=== PATIENT | male | born 1975 | race Caucasian/White ===

== ENCOUNTER → 2023-02-16 | Outpatient (CLI) | payer OTHER, SELFPAY ==
[2023-02-16 12:38] LABS: Absolute Lymphocyte Count 1.31 X10^3/uL (0.83-4.51); Absolute Neutrophil Count 1.2 X10^3/uL (2.0-7.7); Basophil# 0.03 X10^3/uL; Basophil% 0.9 % (0-1); Eosinophil# 0.25 X10^3/uL; Eosinophils% 7.9 % (0-5); Hematocrit 42.7 % (40-54); Hemoglobin 13.8 g/dL (13.0-16.5); Lymphocyte # 1.31 X10^3/ul (0.83-4.51); Lymphocyte % 41.3 % (19-41); Mean Corp Hgb Conc 32.3 g/dL (32-36); Mean Corpuscular Hgb 30.2 pg (27.0-32.0); Mean Corpuscular Volume 93.4 fL (80-94); Monocyte# 0.37 X10^3/uL; Monocyte% 11.7 % (0-10); NRBC Flagged by Analyzer 0 % (0-5); Neutrophil # 1.21 X10^3/uL (2.7-7.7); Neutrophil % 38.2 % (47-70); Platelet Count 212 K/mm3 (150-450); RBC Distribution Width CV 13.4 % (11.6-14.6); RBC Distribution Width SD 46.2 fl (35.1-43.9); Red Blood Count 4.57 M/mm3 (4.6-6.2); White Blood Count 3.2 K/mm3 (4.4-11.0)
[2023-02-16 13:01] LABS: AST(SGOT) 35 U/L (15-37); Alanine Aminotransfer ALT/SGPT 28 U/L (16-61); Albumin, Serum 3.9 g/dL (3.2-5.0); Alkaline Phosphatase 57 U/L (45-117); Anion Gap 5 (5-15); BUN 16 mg/dL (7-18); BUN/Creat Ratio 19.4 RATIO (10-20); Calcium,Total 9.4 mg/dL (8.5-10.1); Chloride 105 mmol/L (98-107); Cholesterol 179 mg/dL (200); Creatinine, Serum 0.82 mg/dL (0.70-1.30); EST Glomerular Filtration Rate 107 mL/min (>60); Est Glom Filt Rate - Afr Amer 130 mL/min (>60); Globulin 3.9 g/dL (2.2-4.2); Glucose 104 mg/dL (74-106); High Density Lipoprotein 63 mg/dL; Potassium 4.1 mmol/L (3.5-5.1); Protein, Total 7.8 g/dL (6.4-8.2); Sodium Level 139 mmol/L (136-145); Thyroid Stim Hormone (TSH) 2.56 uIU/mL (0.358-3.74); Triglycerides 40 mg/dL; Very Low Density Lipoprotein 8 mg/dL (5-40)
== END | disposition home or self-care (01) ==
LOC: MTLAB 11:04
PROVIDERS: PCP Family Medicine; Referring Provider Family Medicine; Visit Provider Family Medicine
DX: Z00.00 Encounter for general adult medical examination without abnormal findings (principal)
CPT/HCPCS: 36415; 80053; 80061; 84443; 85025

== ENCOUNTER → 2023-10-10 | Outpatient (CLI) | payer OTHER, SELFPAY ==
--- NOTE | 2023-10-10 11:40 | NASAL_PTH ---
PATIENT: TRINI RUBIO LOC: [facility] U#:[id number] AGE/SX: 47/M ROOM: RE10/10/[address]: Dr. Lg Mckeon MD : 1975 BED: DIS: 10/10/2023 SPEC #: [id number] RECD: 10/10/23 15:02 STATUS: SARA MOSES #: [id number] EDSON: 10/10/23 11:[address]: Lg Mckeon DEPT: SURGICAL PATHOLOGY RECD BY: Ellyn Dupree ENTERED: 10/11/23 11:53 SP TYPE: NASAL SPEC OTHR DR: Dr. Luis Enrique Castro MD Tissues: A - Ethmoid sinus, NOS B - Ethmoid sinus, NOS Procedures: Decalcification bone/plaque Surgery Specimen Level IV HEADER OPERATION: Open septo rhinoplasty, functional endoscopic sinus surgery PRE-OP DIAGNOSIS: Allergic rhinitis due to animal (cat, dog) hair and dander, allergic rhinitis due to pollen, other chronic sinusitis, other allergic rhinitis TISSUE SUBMITTED: A- Left sinus contents, B- Right sinus contents MICROSCOPIC DIAGNOSIS A. Left sinus contents, curettings: Chronic sinusitis. Fragments of bone with no pathologic change. B. Right sinus contents, curettings: Chronic sinusitis. Fragments of bone with no pathologic change. / 10/17/2023 MICROSCOPIC DESCRIPTION Slides are reviewed. GROSS DESCRIPTION A. Received in fixative is one container labeled with the patient's name and designated Left sinus contents. The specimen consists of multiple fragments of spears soft tissue mixed with fragments of bone that in aggregate measure 2.0 x 1.5 x 0.2 cm. The specimen is totally submitted in one cassette after decalcification. B. Received in fixative is one container labeled with the patient's name and designated Right sinus contents. The specimen consists of multiple fragments of spears soft tissue mixed with fragments of bone that in aggregate measure 3.0 x 2.5 x 0.3cm. The specimen is totally submitted in one cassette after decalcification. 10/11/2023 TC:3 CPT:77419b7,14780g4
== END | disposition home or self-care (01) ==
LOC: LABSPEC 15:14
PROVIDERS: PCP Family Medicine; Referring Provider Otolaryngology; Visit Provider Otolaryngology
DX: J30.81 Allergic rhinitis due to animal (cat) (dog) hair and dander (principal); J30.1 Allergic rhinitis due to pollen; J32.8 Other chronic sinusitis; J30.89 Other allergic rhinitis
CPT/HCPCS: 88305; 88311

== ENCOUNTER → 2023-11-10 | Day surgery (SDC) | payer OTHER, SELFPAY ==
[2023-11-10 09:40] VITALS: BP 118/70; PULSE 101; RESP 16; TEMP 36.7; O2SAT 100
[2023-11-10] MEDS: Lidocaine Jelly 2% 20 ML Syringe (URO-JET) 1 APPLIC (09:45)
== END | disposition home or self-care (01) ==
PROVIDERS: PCP Family Medicine; Referring Provider Family Medicine; Visit Provider Internal Medicine Gastroenterology
PROC: F00ZJWZ Instrumental Swallowing and Oral Function Assessment using Swallowing Equipment (ICD-10-PCS; CPT 43235; principal; 2023-11-10 09:10)
DX: R13.10 Dysphagia, unspecified (principal)
CPT/HCPCS: 91010; 91013

== ENCOUNTER 2023-11-30 06:28 | Day surgery (SDC) | payer OTHER, SELFPAY ==
[2023-11-30] VITALS (8 sets, daily range): BP systolic 107–116; BP diastolic 63–76; PULSE 48–57; RESP 14–17; TEMP 36.4; O2SAT 95–100; BMI 23.1
--- NOTE | 2023-11-30 06:41 | HP.PCM_ITS ---
History and Physical Date of Admission: 11/30/23 TRINI RUBIO, is a 48 M who presents to the office today for establishment with [facility] with concerns for silent acid reflux. He reports frequently needing to clear his throat of what feels like phlegm, but there's nothing to cough up, and it's caused a raspy voice change. He reports waking up with gastric contents in his mouth, also reports belching stomach contents in to his mouth a couple of times a week, heartburn after large meals late at night. States that he has stopped eating so close to bedtime and reduced the number of sparkling mccann ingested which have significantly reduced most symptoms except for the voice changes. He reports that supper is his largest meal because he has time to sit down and eat, he has small snacks throughout the day while working. Reports that he has on a few occasions vomited while working out if he had eaten right before; admits he tries to avoid eating before workouts now. He denies difficulty chewing and swallowing,nausea, early satiety, excessive belching, bloating, abdominal pain, pain associated with BM, blood in stool or toilet margo tinoco Reports daily complete BMs without straining. He denies fever, chills. ROS Const Constitutional: No anorexia, fatigue, fever(s), weight change or abnormal sleep pattern Eyes Eyes: No change in vision ENT ENT: Positive for post nasal drip; No abnormal hearing or difficulty swallowing Resp Respiratory: Positive for cough and excessive phlegm production Cardio Cardiology: No chest pain at rest or chest pain with exertion Gastro GI: Positive for heartburn and vomiting; No abdominal pain, belching, bloating, change in bowel habits, change in stool character, coffee ground emesis, constipation, cramping, diarrhea, difficulty sw allowing, feeling full early, excessive flatus, incontinent of stools, Vomiting blood/hematemesis, Blood in stool, loose stools, Black,tarry stools, nausea/dyspepsia, pain with swallowing or other Genitourinary Male: No difficulty urinating Musc Musculoskeletal: No joint pain Skin Skin: No yellowing of the eye or itchy eyes Neuro Neurology: No abnormal hearing Psych Psychiatric: No abnormal sleep pattern, No anxiety and No depression Endo Endocrine: No cold intolerance, fatigue, heat intolerance or weight change Aller/Imm Allergy/Immunologic: No itchy eyes Daren/Lymp Hematologic/Lymphatic: No easy bleeding or easy bruising Exam Const General: cooperative, healthy appearing, comfortable and no acute distress Nutritional Appearance: average body habitus and well nourished Orientation: alert HENPR Head: normal to inspection Ears: hearing grossly normal bilaterally Nose: external nose normal Face and sinus: normal facial exam and face symmetric Eyes General: appearance normal, both eyes and all related structures Sclera: sclerae normal Neck Neck: normal visual inspection and full ROM Neck mass: No Chest Chest palpation & inspection: normal inspection of the chest Resp Effort & Inspection: normal respiratory effort, able to speak in complete sentences and symmetric chest movement GI Inspection: normal to inspection Skin General: no rashes or lesions noted Neuro General: patient alert, patient awake and patient oriented x3 Cranial Nerves: CN's II-XI intact bilaterally Cognition: normal cognition Speech: speech normal Gait: normal gait Motor: muscle tone normal throughout Extrem General: normal to inspection and full ROM Psych Appearance: well kempt Assessment and Plan Assessment and Plan (1) Acid reflux: Status: Acute Qualifiers: Esophagitis presence: esophagitis presence not specified Qualified Code(s): K21.9 - Gastro-esophageal reflux disease without esophagitis Plan: TRINI RUBIO, is a 48 M who presents to the office today for establishment with [facility] with concerns for silent acid reflux. He reports frequently needing to clear his throat of what feels like phlegm, but there's nothing to cough up, and it's caused a raspy voice change. He reports waking up with gastric contents in his mouth, also reports belching stomach contents in to his mouth a couple of times a week, heartburn after large meals late at night. Differential diagnoses include: laryngopharyngeal reflux, post-nasal drip, esophageal dysmotility, gastroparesis, gastric outlet obstruction, NERD vs GERD. * EGD with Roper study capsule to measure pH changes * GET to evaluate for delayed gastric emptying * esophageal manometry to assess esophageal dysmotility * consider PPI therapy with testing results * modify last meal to end at least 3hrs prior to bedtime, reduce carbonation * sleep with head elevated * call with results Orders: Orders Gastric Emptying Study Today K21.9 - Gastro-esophageal reflux disease without esophagitis I have examined the patient and the H&P has been reviewed. There are no clinical changes since date of exam.
--- NOTE | 2023-11-30 07:23 | PRE.ANES_ITS ---
ASA Classification* ASA Classification ASA Classification: 2 Assessment & Plan Anesthesia* Anesthesia Assessment Anesthesia Assessment: Discussed sedation and/or anesthesia options, risks, benefits, and alternatives with patient/parents/legal guardian/POA. Questions invited. The patient/parents/legal guardian/POA seems to understand and agrees to proceed with anesthesia plan. Reviewed the physical assessment, medical history, allergy history and patient home medications list prior to surgery/procedure/anesthetic and documented any changes. Performed airway and anesthesia risk assessments. Anesthesia Type Anesthesia Type: MAC (see written pre anesthesia record for full assessment) Anesthesia Focused Assessment* Temperature: 97.6 F Pulse Rate: 48 Blood Pressure: 116/64 Respiratory Rate: 17 Pulse Ox: 100 Airway Assessment Mouth opens: >3 cm Mallampati Score: II Focused Labs Anesthesia Preop lab: CBC WBC 3.2 K/mm3 (4.4-11.0) L 02/16/23 11:06 RBC 4.57 M/mm3 (4.6-6.2) L 02/16/23 11:06 Hgb 13.8 g/dL (13.0-16.5) 02/16/23 11:06 Hct 42.7 % (40-54) 02/16/23 11:06 Plt Count 212 K/mm3 (150-450) 02/16/23 11:06 CHEMISTRY Potassium 4.1 mmol/L (3.5-5.1) 02/16/23 11:06 Sodium 139 mmol/L (136-145) 02/16/23 11:06 BUN 16 mg/dL (7-18) 02/16/23 11:06 Creatinine 0.82 mg/dL (0.70-1.30) 02/16/23 11:06 Glucose 104 mg/dL (74-106) 02/16/23 11:06 TSH 2.56 uIU/mL (0.358-3.74) 02/16/23 11:06 COAG Pre-Assessment Diagnosis/Proposed Procedure Planned Operative Procedure(s): EGD WITH PH PROBE Anesthesia History 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 When Was Last Pacemaker Check QUESTION #4 FULL TEXT: You/Your Family Experience fever (hyperthermia) with Anesthesia Last Oral Intake Last Oral intake: Last Oral Intake NPO since 00:00 11/30/23 07:08 Meds taken in AM with sips of No 11/30/23 07:08 water? 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: PONV - diamond finishing supervisor Female No 11/27/23 15:09 HX of Motion Sickness No 11/27/23 15:09 HX of N/V After Surgery No 11/27/23 15:09 Non-Smoker Yes 11/27/23 15:09 Duration of Surgery greater No 11/27/23 15:09 than 60 minutes Number of Risk Factors 1 11/27/23 15:09 PONV Score Low Risk 11/27/23 15:09 Height & Weight Height & Weight: Anesthesia: Height & Weight Height 5 ft 6 in 11/30/23 07:08 Weight: 65 kg 11/30/23 07:08 Body Mass Index (BMI) 23.1 11/30/23 07:08 Respiratory Assessment Respiratory Assessment - diamond finishing supervisor: Respiratory Tract Infection Hx - diamond finishing supervisor Hx Respiratory Tract Infection No 11/27/23 15:09 STOP Sleep Apnea STOP Sleep Apnea - diamond finishing supervisor: STOP Sleep Apnea - diamond finishing supervisor Hx Hypertension No 11/28/23 07:37 Hx Sleep Apnea No 11/27/23 15:09 CPAP BIPAP Do you snore loudly (louder No 11/27/23 15:09 than talking or can be heard Do you often feel tired/ No 11/27/23 15:09 fatigued/ sleepy during daytime? Has anyone observed you stop No 11/27/23 15:09 breathing during sleep? STOP Results Negative 11/27/23 15:09 QUESTION #5 FULL TEXT : Do you snore loudly (louder than talking or can be heard through closed doors)? 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 Specify any problems Hx of Preganancy in last 3 N/A 11/27/23 15:09 Months Nurse Filling Out Transfusion [email or web address] 11/27/23 15:09 & Questions: Date: 11/27/23 11/27/23 15:09 Time: 15:11 11/27/23 15:09 Patient unable to answer at this time (ie. confused, unrespo /Reproduction History /Reproductive History - diamond finishing supervisor: /Reproductive Hx- diamond finishing supervisor Hx Now Gestational Age (in weeks): EDC: Hx Hx Para Hx Section SAB PFSH Medical History Heartburn Non-smoker Chronic cough Home Medications ?Medication ?Instructions ?Recorded ?Last Taken ?Type fluticasone 250 mcg-salmeterol 50 1 ea inhalation BID 11/27/23 11/29/23 History mcg/dose blistr powdr for inhalation meloxicam 15 mg tablet 15 mg PO DAILY 11/30/23 Unknown History Allergy/AdvReac Type Severity Reaction Status Date / Time No Known Allergies Allergy Verified 11/30/23 07:06 Surgical History H/O neck surgery H/O foot surgery H/O shoulder surgery H/O arthroscopy of knee Social History Smoking Status: Never smoker Review of Systems (Anesthesia) ROS Narrative System reviewed and no additional complaints, except as documented.
--- NOTE | 2023-11-30 07:30 | EGD_PTH ---
PATIENT: TRINI RUBIO LOC: [facility] U#:[id number] AGE/SX: 48/M ROOM: RE11/30/[address]: Dr. Yovani Godfrey DO : 1975 BED: DIS: 11/30/2023 SPEC #: [id number] RECD: 11/30/23 08:53 STATUS: SARA REAbrahan #: [id number] EDSON: 11/30/23 07:[address]: Yovani Godfrey DEPT: SURGICAL PATHOLOGY RECD BY: Jorge Luis Stafford ENTERED: 11/30/23 10:02 SP TYPE: EGD BIOPSY ROHIT DR: Dr. Luis Enrique Castro MD Tissues: A - Gastric mucous membrane B - Duodenum, NOS Procedures: Surgery Specimen Level IV HEADER OPERATION: EGD biopsy PRE-OP DIAGNOSIS: Acid reflux TISSUE SUBMITTED: A- Gastric cardia biopsy, B- Duodenum biopsy MICROSCOPIC DIAGNOSIS A. Gastric cardia, biopsy: Mild gastritis. See microscopic description and comment. B. Duodenum, biopsy: Fragments of duodenal mucosa, no pathologic diagnosis. 12/01/2023 COMMENT A. The results of immunohistochemistry for Helicobacter pylori will be reported separately ([id number]). MICROSCOPIC DESCRIPTION Slides are reviewed. A. The specimen shows fragments of gastric mucosa with chronic inflammatory cell infiltrates in the lamina propria consisting of lymphocytes and plasma cells, consistent with mild chronic gastritis. GROSS DESCRIPTION A. Received in fixative is one container labeled with the patient's name and designated Gastric cardia biopsy. The specimen consists of two irregular fragments of light spears soft tissue that in aggregate measure 0.6 x 0.3 x 0.1 cm. The specimen is totally submitted in one cassette. B. Received in fixative is one container labeled with the patient's name and designated Duodenum biopsy. The specimen consists of two irregular fragments of light spears soft tissue that in aggregate measure 0.6 x 0.3 x 0.1 cm. The specimen is totally submitted in one cassette. 11/30/2023 TC:3 CPT:12083k4
--- NOTE | 2023-11-30 07:30 | IMM_PTH ---
PATIENT: TRINI RUBIO LOC: [facility] U#:[id number] AGE/SX: 48/M ROOM: RE11/30/[address]: Dr. Yovani Godfrey DO : 1975 BED: DIS: 11/30/2023 SPEC #: [id number] RECD: 11/30/23 09:56 STATUS: SARA REQ #: [id number] EDSON: 11/30/23 07:[address]: Yovani Godfrey DEPT: IMMUNOHISTOCHEMISTRY RECD BY: Eugene Jimenez ENTERED: 11/30/23 09:56 SP TYPE: IMMUNO OTHR DR: Dr. Luis Enrique Castro MD Tissues: A - Gastric mucous membrane Procedures: H Pylori (initial) PHYSICIAN & INSTITUTION [place] [id number] SPECIMEN INFORMATION: Tissue Source: A- Gastric cardia biopsy Clinical Info: Acid reflux Specimen Number: [id number] CPT code: 98832 METHODOLOGY: Deparaffinized sections of prefer/formalin-fixed tissue or PAP/DQ stained slides are incubated with monoclonal/polyclonal antibodies/oligonucleotide probes. Localization is made via biotin free immunoperoxidase method. Appropriate controls are performed and reacted as expected. Results on target cell population are indicated in the following table: RESULTS: ANTIBODY / CLONE RESULT Block A H Pylori (polyclonal) negative These tests were developed and their performance characteristics determined by [facility]. They may not have been cleared or approved by the [place]. Food and Drug Administration. The FDA has determined that such clearance or approval is not necessary. The above immunohistochemical/dualISH markers are ordered and reviewed by the Pathologist. INTERPRETATION: A. Gastric cardia, biopsy: Negative for Helicobacter pylori organisms. 12/01/2023
--- NOTE | 2023-11-30 08:11 | PCM.POST.ANE ---
Anesthesia: Postop Eval I Current Vital Signs Temperature: 97.5 F Pulse Rate: 57 Blood Pressure: 107/63 Respiratory Rate: 14 Pulse Ox: 97 Oxygen Delivery Method: Room Air Assessment Airway patent: Yes Spontaneous unlabored respirations: Yes Mental status: Asleep nausea: No Vomiting: No Anesthesia Complication: No Fluid Hydration Crystalloid volume administer (ml): 30 Total IV fluid infused: 30 Progress Note Anesthesia document: Postop Eval 1 completed: Yes
--- NOTE | 2023-11-30 08:14 | PCM.POSTANE2 ---
Anesthesia Postop Eval I Sum Postop Eval Completion status Anesthesia document: Postop Eval 1 completed: Yes Anesthesia Postop Eval I Summary Anesthesia Postop Eval I Summary: Anesthesia Postop Eval I: Assessment Summary Airway patent Yes 11/30/23 08:12 [email or web address] Spontaneous unlabored Yes 11/30/23 08:12 [email or web address] respirations Mental status Asleep 11/30/23 08:12 [email or web address] nausea No 11/30/23 08:12 [email or web address] Vomiting No 11/30/23 08:12 [email or web address] Anesthesia Postop Eval I: Fluid Summary Crystalloid volume administer 30 11/30/23 08:12 [email or web address] (ml) Colloids volume administered ( ml) Blood Product volume administered (ml) Total IV fluid infused 30 11/30/23 08:12 [email or web address] Anesthesia Postop Eval I: Summary Notes Anesthesia Complication No 11/30/23 08:12 [email or web address] Anesthesia Complication Comment: Post-operative progress note Anesthesia: Postop Eval II Evaluation Mental status: Awake Pain Level: 0 nausea: No Vomiting: No
--- NOTE | 2023-12-04 15:26 | OP.EGD_ITS ---
Patient Name: Jeremiah Gerard Procedure Date: 11/30/2023 7:45 AM Date of : 1975 Age: 48 Procedure: Upper GI endoscopy Indications: Heartburn, Suspected esophageal reflux Providers: Yovani Godfrey DO Referring MD: Luis Enrique Castro Medicines: Monitored Anesthesia Care Patient Profile: This is a 48 year old male. Refer to note in patient chart for documentation of history and physical. Patient has symptoms of chronic heartburn. Complications: No immediate complications. Procedure: Pre-Anesthesia Assessment: - Prior to the procedure, a History and Physical was performed, and patient medications and allergies were reviewed. The patient is competent. The risks and benefits of the procedure and the sedation options and risks were discussed with the patient. All questions were answered and informed consent was obtained. Patient identification and proposed procedure were verified by the physician in the pre-procedure area. Mental Status Examination: alert and oriented. Airway Examination: normal oropharyngeal airway and neck mobility. Respiratory Examination: clear to auscultation. CV Examination: normal. Prophylactic Antibiotics: The patient does not require prophylactic antibiotics. Prior Anticoagulants: The patient has taken no anticoagulant or antiplatelet agents except for NSAID medication. ASA Grade Assessment: II - A patient with mild systemic disease. After reviewing the risks and benefits, the patient was deemed in satisfactory condition to undergo the procedure. The anesthesia plan was to use monitored anesthesia care (MAC). Immediately prior to administration of medications, the patient was re-assessed for adequacy to receive sedatives. The heart rate, respiratory rate, oxygen saturations, blood pressure, adequacy of pulmonary ventilation, and response to care were monitored throughout the procedure. The physical status of the patient was re-assessed after the procedure. After obtaining informed consent, the endoscope was passed under direct vision. Throughout the procedure, the patient's blood pressure, pulse, and oxygen saturations were monitored continuously. The Endoscope was introduced through the mouth, and advanced to the second part of duodenum. The upper GI endoscopy was accomplished without difficulty. The patient tolerated the procedure well. Scope In: 7:57:15 AM Scope Out: 8:02:03 AM Total Procedure Duration Time 0 hours 4 minutes 48 seconds Findings: The examined esophagus was normal. Abnormal motility was noted in the esophagus. The cricopharyngeus was abnormal. There is spasticity of the esophageal body. The distal esophagus/lower esophageal sphincter is spastic, but gives up passage to the endoscope. Tertiary peristaltic waves are noted. The WOODRUFF capsule with delivery system was introduced through the mouth and advanced into the esophagus, such that the WOODRUFF pH capsule was positioned 40 cm from the incisors, which was 6 cm proximal to the GE junction. Suction was applied to the well of the WOODRUFF pH capsule to suck in the adjacent mucosa of the esophagus using the external vacuum pump set at a minimum vacuum pressure of 550 mmHg for 30 seconds. The WOODRUFF pH capsule was then deployed by depressing the plunger on top of the handle to advance the locking pin into the mucosa, thereby attaching the capsule to the esophagus. The plunger was then rotated a quarter turn clockwise to release the capsule from the delivery system. The delivery system was then withdrawn. Endoscopy was utilized for probe placement and diagnostic evaluation. Patchy mildly congested mucosa was found in the cardia. Biopsies were taken with a cold forceps for histology. Verification of patient identification for the specimen was done. Estimated blood loss was minimal. Biopsies were taken with a cold forceps for Helicobacter pylori testing. Verification of patient identification for the specimen was done. Estimated blood loss was minimal. No gross lesions were noted in the first portion of the duodenum. Biopsies were taken with a cold forceps for histology. Verification of patient identification for the specimen was done. Estimated blood loss was minimal. Impression: - Normal esophagus. - Abnormal esophageal motility, suspicious for esophageal spasm. - Congestive gastropathy. Biopsied. - No gross lesions in the first portion of the duodenum. Biopsied. - The WOODRUFF pH capsule was positioned 40 cm from the incisors, which was 6 cm proximal to the GE junction. Recommendation: - Discharge patient to home. - Resume previous diet. - Continue present medications. - Await pathology results. Procedure Code(s): --- Professional --- 71169, Esophagogastroduodenoscopy, flexible, transoral; with biopsy, single or multiple CPT copyright 2021 [employer]. All rights reserved. The codes documented in this report are preliminary and upon landing man review may be revised to meet current compliance requirements. Yovani Godfrey DO 11/30/2023 8:07:17 AM This report has been signed electronically. Number of Addenda: 0 Note Initiated On: 11/30/2023 7:45 AM
--- NOTE | 2023-12-04 15:26 | OP.CCLET_ITS ---
11/30/2023 Luis Enrique Castro [address] [place] [address] Re : Upper GI endoscopy procedure for Jeremiah Gerard Dear Dr. Castro This procedure was performed on November. My impressions and recommendations are as follows: Impressions : - Normal esophagus. - Abnormal esophageal motility, suspicious for esophageal spasm. - Congestive gastropathy. Biopsied. - No gross lesions in the first portion of the duodenum. Biopsied. - The WOODRUFF pH capsule was positioned 40 cm from the incisors, which was 6 cm proximal to the GE junction. Recommendations : - Discharge patient to home. - Resume previous diet. - Continue present medications. - Await pathology results. My findings are described in the full procedure note, which is enclosed. If I can be of further assistance, please feel free to contact me at . Sincerely, Yovani Godfrey, 11/30/2023 8:07:17 AM This report has been signed electronically.
== END 2023-11-30 08:55 | disposition home or self-care (01) ==
LOC: EN 06:28 → AC 06:30
PROVIDERS: PCP Family Medicine; Referring Provider Family Medicine; Visit Provider Internal Medicine Gastroenterology
PROC: (CPT 43235; principal; 2023-11-30 07:25)
DX: K29.70 Gastritis, unspecified, without bleeding (principal); K21.9 Gastro-esophageal reflux disease without esophagitis
CPT/HCPCS: 43239; 88305; 88342; A4216; J2405

== ENCOUNTER 2023-12-05 08:00 | Outpatient (RCR) | payer OTHER, SELFPAY ==
--- NOTE | 2023-11-28 08:18 | HP.PTEVAL_ITS ---
Patient's Visit Information Visit Information Visit Information: TRINI RUBIO is a 48 year old M referred to Physical Therapy by Dr. Roberth Briceno DO with a diagnosis of L Adhesive capsulitis, impingement of the shoulder. Date of Evaluation: 11/28/23 Physical Therapist: NELLIE Vicente Visit Plan Frequency: 1x/Week Duration: 4 Weeks Plan: Next visit give prone T, Y and W, double ER and instruct in H&W pulleys for IR/ER and mid rows 1X/ week for 3 weeks for scapular strength, RC strength, with gym and HEP HEP: blue band mid rows, orange IR/ER Subjective Subjective: He a cortisone injection last Monday and he now has no pain. His pain started 2 years ago and it just started aching and then it would come and go. He works out daily and would feel it doing push ups. Then it started to hurt with sleeping and certain activities. He is L handed and it is his L shoulder. He can sleep on the L side and it does not wake him up at night. He now does not have decrease ROM and did not have it prior to the shot. Pain L shoulder pain: Pain Intensity (Out of 10): 0 Objective Objective: Full shoulder AROM B PROM L shoulder pain at end range flex and ABD. No pain at end range ER UE MMT: R shoulder flex 8.7 and L 8.1 R shoulder ABD 7.8 and L 7.2 R shoulder ER 10 and L 11.7 R shoulder IR 11.1 and L 9.3 + impingement sign on the L (HK) and no pain on the R but some clucking Balance/Special Test Scores Quick DASH Score: 20.4525 Goals Goal 1:: I HEP Goal Time Frame: 6-8 Weeks Goal 2:: Increase posture awareness in the clinic and at work Goal Time Frame: 6-8 Weeks Goal 3:: Increase shoulder strength (at the time of the eval: R shoulder flex 8.7 and L 8.1 R shoulder ABD 7.8 and L 7.2 R shoulder ER 10 and L 11.7 R shoulder IR 11.1 and L 9.3) Goal Time Frame: 6-8 Weeks Goal 4:: No pain with ADL's Goal Time Frame: 6-8 Weeks Rehabilitation Potential Rehabilitation Potential: Good Anticipated Interventions Patient/Client Instruction: Educate patient on: Condition and Plan of Care For the Purpose of:: To decrease pain, To increase ROM, To improve nutrient delivery to tissue, To improve muscle performance and motor function, To improve ability to perform ADL's, To increase tolerance to activity/condition/position, To improve performance and independence with ADL's, To decrease level of supervision to perform tasks, To improve health of tissue, To decrease soft tissue restriction and To increase flexibility/ROM Therapeutic Exercise to Include: Strength training, Endurance training, Body mechanics, Postural training, Neuromotor development, Active ROM and Scapular St rength/Stabilization For the Purpose of:: To decrease pain, To increase ROM, To improve nutrient delivery to tissue, To improve muscle performance and motor function, To improve ability to perform ADL's, To increase tolerance to activity/condition/position, To improve performance and independence with ADL's, To decrease level of supervision to perform tasks, To improve health of tissue and To decrease soft tissue restriction Text: Thank you for the opportunity to evaluate your patient. For Medicare and Medicare HMO plans, please review the plan of care and approve it. It will need to be FAXED BACK to us at [phone] for Medicare purposes. For Medicare only, by signing this I certify the plan of care. Please let me know if there are questions or concerns regarding this plan of care. Physician Signature: Date:
--- NOTE | 2023-12-05 08:30 | HP.PTDCSUM ---
Discharge Summary D/C summary: It has been my pleasure to treat TRINI RUBIO referred by Dr. Roberth Briceno DO, with the diagnosis of L Adhesive capsulitis, impingement of the shoulder for a total of 2 visit(s). Discharge Date: 12/05/23 Please see the following information for a summary of their discharge status. Subjective Subjective: Pt reports that he has been doing pulleys at the weight room and thinks he just wants a few more exercises and then be done with PT Pain L shoulder pain: Pain Intensity (Out of 10): 0 Overall Improvement % Improvement: 25 Objective Objective/Function: Pt likes to just do all the reps with no break. He fully understands HEP with pictures and bands Goals Goal 1:: I HEP Goal Progress: Goal Met Goal 2:: Increase posture awareness in the clinic and at work Goal Progress: Goal Met Goal 3:: Increase shoulder strength (at the time of the eval: R shoulder flex 8.7 and L 8.1 R shoulder ABD 7.8 and L 7.2 R shoulder ER 10 and L 11.7 R shoulder IR 11.1 and L 9.3) Goal 4:: No pain with ADL's Plan Plan: DC PT. Pt wants to take this HEP and incorporated into his gym routine D/C Information Discharge Comments: DC PT to HEP d/c sentence: If there are questions or concerns regarding this patient's physical therapy, please feel free to call me at [phone]. Thank you for the referral of this patient. Sincerely, Luz Bravo, MPT Balance/Gait/Functional tests Balance/Special Test Scores Quick DASH Score: 20.4525 Improvement % Improvement: 25
== END 2023-12-05 13:03 | disposition home or self-care (01) ==
LOC: PT 08:00
PROVIDERS: PCP Family Medicine; Referring Provider Student in an Organized Health Care Education/Training Program; Visit Provider Student in an Organized Health Care Education/Training Program
DX: M25.512 Pain in left shoulder (principal); M75.42 Impingement syndrome of left shoulder; M75.02 Adhesive capsulitis of left shoulder
CPT/HCPCS: 97161

== ENCOUNTER → 2023-12-11 | Outpatient (CLI) | payer OTHER, SELFPAY ==
--- NOTE | 2023-12-11 10:47 | NM_ITS ---
CLINICAL: 48-year-old male with history of gastric reflux disease. SEMI-SOLID PHASE 99m Tc SULFUR COLLOID GASTRIC EMPTYING STUDY COMPARISON: None available FINDINGS: The patient was administered 1.0 mCi of 99m Tc sulfur colloid mixed with oatmeal and consumed per os. Image acquisitions in the anterior-posterior projections were obtained for 60 minutes. There is prompt visualization of the stomach. There is no gastroesophageal reflux identified. The T ? linear fit was calculated to be 33.48 minutes, (Normal: 12-56 minutes). NM/Gastric Emptying Study IMPRESSION: 1. NORMAL 99m Tc sulfur colloid semi-solid phase (oatmeal) gastric emptying imaging examination. A. There is normal and preserved semi-solid phase gastric emptying compared to normal controls. (Abel et al, J Nucl Med Tech 38: 186, 2010). Electronically Signed: Thierry Gray DO at 9:32 EDT ,
== END | disposition home or self-care (01) ==
LOC: NM 10:46
PROVIDERS: PCP Family Medicine
DX: K21.9 Gastro-esophageal reflux disease without esophagitis (principal)
CPT/HCPCS: 78264; A9541

== ENCOUNTER → 2024-03-18 | Outpatient (CLI) | payer OTHER, SELFPAY ==
[2024-03-18 12:18] LABS: Absolute Lymphocyte Count 1.01 X10^3/uL (0.83-4.51); Absolute Neutrophil Count 1.7 X10^3/uL (2.0-7.7); Basophil# 0.03 X10^3/uL; Basophil% 0.9 % (0-1); Eosinophil# 0.34 X10^3/uL; Eosinophils% 9.9 % (0-5); Hematocrit 39.5 % (40-54); Hemoglobin 12.1 g/dL (13.0-16.5); Lymphocyte # 1.01 X10^3/ul (0.83-4.51); Lymphocyte % 29.4 % (19-41); Mean Corp Hgb Conc 30.6 g/dL (32-36); Mean Corpuscular Hgb 27.2 pg (27.0-32.0); Mean Corpuscular Volume 88.8 fL (80-94); Mean Platelet Vol. 9.5 fl (6.2-12.0); Monocyte# 0.36 X10^3/uL; Monocyte% 10.5 % (0-10); NRBC Flagged by Analyzer 0 % (0-5); Neutrophil # 1.68 X10^3/uL (2.7-7.7); Platelet Count 246 K/mm3 (150-450); RBC Distribution Width CV 13.4 % (11.6-14.6); RBC Distribution Width SD 43.6 fl (35.1-43.9); Red Blood Count 4.45 M/mm3 (4.6-6.2); White Blood Count 3.4 K/mm3 (4.4-11.0)
[2024-03-18 12:51] LABS: ALB/GLOB Ratio 0.9 RATIO (0.9-2.4); AST(SGOT) 31 U/L (15-37); Alanine Aminotransfer ALT/SGPT 25 U/L (16-61); Albumin, Serum 3.7 g/dL (3.2-5.0); Alkaline Phosphatase 61 U/L (45-117); Anion Gap 7 (5-15); BUN 15 mg/dL (7-18); BUN/Creat Ratio 18.2 RATIO (10-20); Calcium,Total 8.7 mg/dL (8.5-10.1); Chloride 103 mmol/L (98-107); Cholesterol 167 mg/dL (200); Creatinine, Serum 0.82 mg/dL (0.70-1.30); EST Glomerular Filtration Rate 107 mL/min (>60); Est Glom Filt Rate - Afr Amer 130 mL/min (>60); Glucose 94 mg/dL (74-106); High Density Lipoprotein 57 mg/dL; PSA,Total - Annual Screen 0.65 ng/mL (0.00-4.00); Protein, Total 7.7 g/dL (6.4-8.2); Sodium Level 137 mmol/L (136-145); Triglycerides 80 mg/dL; Very Low Density Lipoprotein 16 mg/dL (5-40)
[2024-03-19 13:36] LABS: Ferritin 26 ng/mL (26-388); Iron 34 ug/dL (65-175); Iron Binding Capacity,Total 410 ug/dL (250-450)
[2024-03-19 13:45] LABS: Vitamin B12 453 pg/mL (211-911)
== END | disposition home or self-care (01) ==
LOC: MFPLAB 08:08
PROVIDERS: PCP Family Medicine; Referring Provider Family Medicine; Visit Provider Family Medicine
DX: Z00.00 Encounter for general adult medical examination without abnormal findings (principal); Z12.5 Encounter for screening for malignant neoplasm of prostate
CPT/HCPCS: 36415; 80053; 80061; 82607; 82728; 83540; 83550; 84153; 85025; G0103

== ENCOUNTER → 2024-04-26 | Outpatient (CLI) | payer OTHER, SELFPAY ==
[2024-04-26 10:33] LABS: Absolute Lymphocyte Count 1.26 X10^3/uL (0.83-4.51); Basophil# 0.02 X10^3/uL; Basophil% 0.5 % (0-1); Eosinophil# 0.24 X10^3/uL; Eosinophils% 6.1 % (0-5); Hematocrit 41.9 % (40-54); Hemoglobin 13.5 g/dL (13.0-16.5); Lymphocyte # 1.26 X10^3/ul (0.83-4.51); Lymphocyte % 32.2 % (19-41); Mean Corp Hgb Conc 32.2 g/dL (32-36); Mean Corpuscular Hgb 28.7 pg (27.0-32.0); Mean Platelet Vol. 9.6 fl (6.2-12.0); Monocyte# 0.38 X10^3/uL; Monocyte% 9.7 % (0-10); NRBC Flagged by Analyzer 0 % (0-5); Neutrophil % 51.2 % (47-70); Platelet Count 199 K/mm3 (150-450); RBC Distribution Width CV 16.5 % (11.6-14.6); Red Blood Count 4.71 M/mm3 (4.6-6.2); White Blood Count 3.9 K/mm3 (4.4-11.0)
[2024-04-26 12:06] LABS: Ferritin 38 ng/mL (37-417); Iron 106 ug/dL (65-175); Iron Binding Capacity,Total 326 ug/dL (250-450); Iron Binding Capacity,Unsat 220 ug/dL (228-428)
[2024-04-29 13:07] LABS: Deamidated Gliadin IgA 5 units (0-19); Deamidated Gliadin IgG 2 units (0-19); Endomysial Antibody IgA Negative (Negative); Immunoglobulin A 323 mg/dL (90-386); t-Transglutaminase IgA <2 U/mL (0-3)
== END | disposition home or self-care (01) ==
LOC: MFPLAB 08:39
PROVIDERS: PCP Family Medicine; Referring Provider Family Medicine; Visit Provider Family Medicine
DX: D64.9 Anemia, unspecified (principal)
CPT/HCPCS: 36415; 82728; 82784; 83516; 83540; 83550; 85025; 86255

== ENCOUNTER → 2024-05-21 | Outpatient (CLI) | payer OTHER, SELFPAY ==
[2024-05-21 17:52] LABS: Absolute Lymphocyte Count 1.11 X10^3/uL (0.83-4.51); Absolute Neutrophil Count 5.1 X10^3/uL (2.0-7.7); Basophil# 0.03 X10^3/uL; Basophil% 0.4 % (0-1); Eosinophil# 0.11 X10^3/uL; Eosinophils% 1.6 % (0-5); Hematocrit 40.5 % (40-54); Hemoglobin 13.2 g/dL (13.0-16.5); Lymphocyte # 1.11 X10^3/ul (0.83-4.51); Lymphocyte % 16.4 % (19-41); Mean Corp Hgb Conc 32.6 g/dL (32-36); Mean Corpuscular Hgb 29.5 pg (27.0-32.0); Mean Corpuscular Volume 90.4 fL (80-94); Mean Platelet Vol. 9.1 fl (6.2-12.0); Monocyte# 0.36 X10^3/uL; Monocyte% 5.3 % (0-10); NRBC Flagged by Analyzer 0 % (0-5); Neutrophil # 5.13 X10^3/uL (2.7-7.7); Neutrophil % 76.2 % (47-70); Platelet Count 246 K/mm3 (150-450); RBC Distribution Width SD 56.7 fl (35.1-43.9); Red Blood Count 4.48 M/mm3 (4.6-6.2); White Blood Count 6.8 K/mm3 (4.4-11.0)
== END | disposition home or self-care (01) ==
LOC: MFPLAB 16:17
PROVIDERS: PCP Family Medicine; Referring Provider Family Medicine; Visit Provider Family Medicine
DX: K21.9 Gastro-esophageal reflux disease without esophagitis (principal)
CPT/HCPCS: 36415; 85025; 86003; 86005

== ENCOUNTER → 2024-07-31 | Outpatient (CLI) | payer OTHER, SELFPAY ==
--- NOTE | 2024-07-31 06:47 | MRI_ITS ---
PROCEDURE: LOWER EXT JOINT ONLY (ROUTINE) 07/31/2024 REASON FOR EXAM: PAIN, 20 YRS OF CALF SPRAINS TECHNIQUE: LOWER EXT JOINT ONLY (ROUTINE) Multiplanar and multisequence images were obtained without IV contrast administration. COMPARISON: COMPARISON : None FINDINGS: Bone Marrow: There is no bony contusion or occult fracture. Cruciate ligaments. The anterior and posterior cruciate ligaments appear intact. Collateral ligaments: Medial collateral ligament appears intact. The lateral collateral ligament complex appears intact. Menisci: The medial meniscus appears intact. There is a horizontal tear in the posterior horn of the lateral meniscus which extends to the tibial surface, near the root, sagittal image 21/32. Extensor mechanism: There is moderate distal quadriceps and proximal patellar tendinopathy without full-thickness tear. Effusion: There is a trace joint effusion. There is no significant Pop's cyst. Cartilage: There is no focal chondromalacia. MRI/Lower Ext Joint Only (Routine) IMPRESSION: There is a horizontal tear in the posterior horn of the lateral meniscus which extends to the tibial surface, near the root, sagittal image 21/32. There is moderate distal quadriceps and proximal patellar tendinopathy without full-thickness tear. There is a trace joint effusion. Reading Location: [facility]
--- NOTE | 2024-07-31 06:47 | MRI_ITS ---
PROCEDURE: LOWER EXT/NO JT/W/O 07/31/2024 REASON FOR EXAM: PAIN, 20 YRS OF CALF SPRAINS TECHNIQUE: LOWER EXT/NO JT/W/O Multiplanar and multisequence images were obtained without IV contrast administration. COMPARISON: COMPARISON : None FINDINGS: Bone Marrow: There is no marrow edema in the tibia or fibula. Effusion: There is no significant effusion. Soft Tissues: There is superficial edema in the central portion of the gastrocnemius, medial and lateral heads, measuring 1.1 x 3.0 x 1.3 cm, sagittal image 15/28, 51/84 axial. This likely represents recent grade 2 strain. There is no organized or drainable collection. Neurovascular structures are unremarkable. There is no soft tissue mass or adenopathy. Ligaments and Tendons: The distal Achilles appears intact. MRI/Lower Ext/No Jt/w/o IMPRESSION: There is superficial edema in the central portion of the gastrocnemius, medial and lateral heads, measuring 1.1 x 3.0 x 1.3 cm, sagittal image 15/28, 51/84 axial. This likely represents recent grade 2 strain. Reading Location: [facility]
--- OUTSIDE RECORDS SUMMARY | 2024-07-31 06:55 | XMS RPT_ITS | CCD ---
Author Organization [facility] Care Team Providers Care [employer] Clerk Name Role Phone MATTHEW JIMENEZ, THOMAS Primary Care Physician FARRAH CIFUENTES DPM Attending Unavailable THOMAS PADILLA MD Primary Care Unavailable FARRAH CIFUENTES DPM Attending Unavailable MATTHEW JIMENEZ, THOMAS Primary Care Unavailable Matthew JIMENEZ, Dr. Thomas Esquivel Primary Care Provider Matthew JIMENEZ, Dr. Thomas Esquivel Attending Provider [phone] Matthew JIMENEZ, Dr. Thomas Esquivel Referring Provider [phone] Matthew JIMENEZ, Thomas Vazquez Primary Care Provider ROYAL GUY Attending Unavailable ROYAL GUY Referring Unavailable THOMAS PADILLA Primary Care UnavailROYAL Goodwin Attending Unavailable TOHMAS PADILLA Primary Care UnavailRoberth Miranda Referring Unavailable Roberth Briceno Attending Unavailable Thomas Padilla Primary Care Unavailable Thomas Padilla Referring Unavailable Friend, Yovani Attending Unavailable Thomas Padilla Primary Care Unavailable Thomas Padilla Referring Unavailable Thomas Padilla Attending Unavailable Thomas Padilla Primary Care Unavailable Thomas Padilla Referring Unavailable Thomas Padilla Attending Unavailable Thomas Padilla Primary Care Unavailable Thomas Padilla Referring Unavailable Thomas Padilla Primary Care Unavailable Aziza Nieto Attending Unavailable Thomas Padilla Referring Unavailable Roxanne Drake Attending Unavailable Thomas Padilla Primary Care Unavailable Thomas Padilla Referring Unavailable Friend, Yovani Attending Unavailable Friend, Yovani Consulting Unavailable Thomas Padilla Primary Care Unavailable Thomas Padilla Primary Care Unavailable Teddy Lauren Attending Unavailable Thomas Padilla Referring Unavailable Schinner, Thomas E Primary Care Unavailable Jason Snow Attending Unavailable Thomas Padilla Primary Care Unavailable Thomas Padilla Referring Unavailable Thomas Padilla Attending Unavailable Lg Mckeon Referring UnavailLg Sethi Attending UnavailThomas Rosen Primary Care Unavailable Thomas Padilla Referring Unavailable Yovani Godfrey Attending Unavailable Thomas Padilla Primary Care Unavailable Teddy Lauren Referring Unavailable Teddy Lauren Attending Unavailable Thomas Padilla Primary Care Unavailable Thomas Padilla Primary Care Unavailable Aziza Nieto Referring Unavailable Aziza Nieto Attending Unavailable Medications Current Medications Medication Drug Class(es) Dates Sig (Normalized) Sig (Original) baclofen 5 mg oral tablet (4 sources) gamma-Aminobutyri c Acid-ergic Agonist Start: 02-29-2024 take 1 tablet by mouth at bedtime Baclofen 5 mg tablet Active 5 mg PO AT BEDTIME February 29, 2024 1:00am End: 06-17-2024 take 0.5 tablet by mouth once daily baclofen (Lioresal) 10 mg tablet Take 0.5 tablets (5 mg) by mouth once daily. 06/17/2024 Discontinued (Med List Cleanup) calcium chloride 0.0014 meq/ml / potassium chloride 0.004 meq/ml / sodium chloride 0.103 meq/ml / sodium lactate 0.028 meq/ml injectable solution (1 source) Start: 06-19-2024 End: 06-20-2024 take 50 mL intravenously every hour 50 mL/hr, intravenous, Continuous, Starting on Mon06/19/24 at 1200, For 1 day dilTIAZem hydrochloride 30 mg oral tablet (2 sources) Calcium Channel Vicki Start: 06-13-2024 End: 06-13-2025 take 1 tablet by mouth twice daily dilTIAZem (Cardizem) 30 mg immediate release tablet Indications: Dysphagia, unspecified type , Gastroesophageal reflux disease with esophagitis, unspecified whether hemorrhage Take 1 tablet (30 mg) by mouth 2 times a day. 60 tablet 3 06/13/2024 06/13/2025 Active Fluticasone Propion-Salmeterol (4 sources) Corticostero id, beta2-Adrene rgic Agonist Start: 11-27-2023 Fluticasone Propion-Salmeterol 250-50 mcg/dose blister with device Active 1 NMA INHALATION TWICE A DAY November 27, 2023 12:00am fluticasone prop ion-salmeteroL (AirDuo RespiClick) 113-14 mcg/actuation inhaler Inhale 1 puff if needed. Active meloxicam 15 mg oral tablet (2 sources) Nonsteroidal Anti-inflammatory Drug Start: 11-30-2023 take 1 tablet by mouth once daily Meloxicam 15 mg tablet Active 15 mg PO DAILY November 30, 2023 12:00am omeprazole 40 mg delayed release oral capsule (4 sources) Proton Pump Inhibitor Start: 12-07-2023 take 1 capsule by mouth once daily Omeprazole 40 mg capsule,delayed release(DR/EC) Active 40 mg PO daily December 07, 2023 12:00am End: 06-17-2024 take 1 capsule by mouth twice daily omeprazole (PriLOSEC) [address] capsule Take 1 capsule (20 mg) by mouth 2 times a day. Do not crush or chew. 06/17/2024 Discontinued (Med List Cleanup) Completed/Discontinued Medications Medication Drug Class(es) Dates Sig (Normalized) Sig (Original) benzocaine 140 mg/ml / butamben 20 mg/ml / tetracaine 20 mg/ml mucosal spray (1 source) Shaista Local Anesthetic, Standardized Chemical Allergen Start: End: 5 Topical, As needed, Starting on Mon06/19/24 at 1133, Intraprocedure onabotulinumtoxina 100 unt injection (1 source) Acetylcholine Release Inhibitor Start: End: 5 intramuscular, As needed, Starting on Mon06/19/24 at 1145, Intraprocedure 1 ml fentaNYL 0.05 mg/ml injection (2 sources) Opioid Agonist Start: End: 5 intravenous, As needed, Starting on Mon06/19/24 at 1140, Intraprocedure 2 ml midazolam 5 mg/ml injection (2 sources) Benzodiazepine Start: 5 End: 5 intravenous, Administer over 5 Minutes, As needed, Starting on Mon06/19/24 at 1141, Intraprocedure Problems Active Problems Problem Classification Problem Date Documented Da te Episodic/Chronic Deficiency and other anemia (1 source) Anemia, unspecified; Translations: [Anemia, unspecified] Onset: 05-05-2024 Episodic Esophageal disorders (11 sources) Esophageal dysmotility; Translations: [Dyskinesia of esophagus] Onset: 05-27-2024 01-02-2024 Chronic Esophageal disorders (2 sources) Esophageal disorders; Translations: [Gastro-esophagea l reflux disease with esophagitis, without bleeding] Onset: 06-13-2024 Other gastrointestinal disorders (8 sources) Dysphagia; Translations: [Dysphagia, unspecified] Onset: 06-13-2024 01-02-2024 Episodic Other non-traumatic joint disorders (2 sources) Pain in left knee; Translations: [Pain in left knee] Onset: 06-14-2024 Episodic Other upper respiratory disease (1 source) Allergic rhinitis due to animal (cat) (dog) hair and dander; Translations: [Allergic rhinitis due to animal (cat) (dog) hair and dander] Onset: 12-28-2023 Chronic Other upper respiratory disease (2 sources) Hoarse; Translations: [Dysphonia] 01-02-2024 Episodic Sprains and strains (1 source) Strain of other muscle(s) and tendon(s) of posterior muscle group at lower leg level, left leg, initial encounter; Translations: [Strain of other muscle(s) and tendon(s) of posterior muscle group at lower leg level, left leg, initial encounter] Onset: 07-30-2024 Episodic Unclassified (2 sources) New Patient Visit; Translations: [New Patient Visit] Onset: 06-13-2024 Past or Other Problems Problem Classification Problem Date Documented Da te Episodic/Chronic Other gastrointestinal disorders (3 sources) Dysphagia, unspecified; Translations: [Dysphagia, unspecified] Onset: 12-08-2023 Episodic Results Test Name Value Interpretation Reference Range Facility [facility] 06-19-2024 Esophagogastroduodenoscopy Table formatt ing from the original result was not included. Impression Injected botox in the GE junction Performed forceps biopsies in the middle third of the esophagus, lower third of the esophagus, duodenal bulb and 2nd part of the duodenum to rule out eosinophilic esophagitis and celiac disease Findings Injected 100 total units of Botox in the GE junction using a four-quadrant injection method. Patient had prior endoscopy. Endoscopy unremarkable. Esophageal manometry showed tertiary contractions within esophagus with elevated resting LES and failure to completely relax. He is here today for therapeutic trial of Botox injections for his feeling of incomplete swallowing. He has had partial response to oral calcium channel blockers after failure of baclofen. Performed multiple forceps biopsies in the middle third of the esophagus, lower third of the esophagus, duodenal bulb and 2nd part of the duodenum to rule out eosinophilic esophagitis and celiac disease Recommendation Follow up with me in clinic Indication Dysphagia, unspecified type, Gastroesophageal reflux disease with esophagitis, unspecified whether hemorrhage Post-Op Diagnosis None Staff Staff Role No Staff Documented Medications gquwutnz-lpaaiyekpb-l enzocaine (Cetacaine) spray 2 spray midazolam PF (Versed) injection 3.5 mg fentaNYL PF (Sublimaze) injection 75 mcg onabotulinumtoxinA (Botox) injection 100 Units (Totals for administrations occurring from 1129 to 1152 on 06/19/24) Preprocedure A history and physical has been performed, and patient medication allergies have been reviewed. The patient's tolerance of previous anesthesia has been reviewed. The risks and benefits of the procedure and the sedation options and risks were discussed with the patient and patient's partner. All questions were answered and informed consent obtained. Details of the Procedure The patient underwent moderate sedation, which was administered by the procedural nurse. The patient's blood pressure, ECG, ETCO2, heart rate, level of consciousness, oxygen and respirations were monitored throughout the procedure. The scope was introduced through the mouth and advanced to the second part of the duodenum. Retroflexion was performed in the cardia. The patient experienced no blood loss. The procedure was not difficult. The patient tolerated the procedure well. There were no apparent adverse events. Events Procedure Events Event Event Time ENDO SCOPE IN TIME 06/19/2024 11:39 AM ENDO SCOPE OUT TIME 06/19/2024 11:48 AM Specimens ID Type Source Tests Collected by Time 1 : DUODENUM BIOPSY Tissue DUODENUM SECOND PART BIOPSY SURGICAL PATHOLOGY EXAM Belgica Antonio RN 06/19/2024 1132 2 : MID ESOPAHGUS BIOPSY Tissue ESOPHAGUS MID BIOPSY SURGICAL PATHOLOGY EXAM Belgica Antonio RN 06/19/2024 1144 Procedure Location [facility] [place] [address] [place] [phone] Referring Provider Royal Guy DO Procedure Provider Royal Guy DO [facility] Comment on above: Order Comment: 06/19 EGD Study observation Narrat shahla 06-19-2024 Table formatting fro m the original result was not included. Impression Injected botox in the GE junction Performed forceps biopsies in the middle third of the esophagus, lower third of the esophagus, duodenal bulb and 2nd part of the duodenum to rule out eosinophilic esophagitis and celiac disease Findings Injected 100 total units of Botox in the GE junction using a four-quadrant injection method. Patient had prior endoscopy. Endoscopy unremarkable. Esophageal manometry showed tertiary contractions within esophagus with elevated resting LES and failure to completely relax. He is here today for therapeutic trial of Botox injections for his feeling of incomplete swallowing. He has had partial response to oral calcium channel blockers after failure of baclofen. Performed multiple forceps biopsies in the middle third of the esophagus, lower third of the esophagus, duodenal bulb and 2nd part of the duodenum to rule out eosinophilic esophagitis and celiac disease Recommendation Follow up with me in clinic Indication Dysphagia, unspecified type, Gastroesophageal reflux disease with esophagitis, unspecified whether hemorrhage Post-Op Diagnosis None Staff Staff Role No Staff Documented Medications pslicudk-seidkylkzo-h enzocaine (Cetacaine) spray 2 spray midazolam PF (Versed) injection 3.5 mg fentaNYL PF (Sublimaze) injection 75 mcg onabotulinumtoxinA (Botox) injection 100 Units (Totals for administrations occurring from 1129 to 1152 on 06/19/24) Preprocedure A history and physical has been performed, and patient medication allergies have been reviewed. The patient's tolerance of previous anesthesia has been reviewed. The risks and benefits of the procedure and the sedation options and risks were discussed with the patient and patient's partner. All questions were answered and informed consent obtained. Details of the Procedure The patient underwent moderate sedation, which was administered by the procedural nurse. The patient's blood pressure, ECG, ETCO2, heart rate, level of consciousness, oxygen and respirations were monitored throughout the procedure. The scope was introduced through the mouth and advanced to the second part of the duodenum. Retroflexion was performed in the cardia. The patient experienced no blood loss. The procedure was not difficult. The patient tolerated the procedure well. There were no apparent adverse events. Events Procedure Events Event Event Time ENDO SCOPE IN TIME 06/19/2024 11:39 AM ENDO SCOPE OUT TIME 06/19/2024 11:48 AM Specimens ID Type Source Tests Collected by Time 1 : DUODENUM BIOPSY Tissue DUODENUM SECOND PART BIOPSY SURGICAL PATHOLOGY EXAM Belgica Antonio RN 06/19/2024 1138 2 : MID ESOPAHGUS BIOPSY Tissue ESOPHAGUS MID BIOPSY SURGICAL PATHOLOGY EXAM Belgica Antonio RN 06/19/2024 1147 Procedure Location [facility] OR [address] [place] [phone] Referring Provider Royal Guy DO Procedure Provider Royal Guy DO IMAGING [facility] Work Phone: Radiology Study observation (narrative) [facility] Work Phone: Surgical pathology studyon 0 06-19-2024 Surgical pathology study Pathology report.total SEE COMMENT Surgical Pathology Case: [id number] Authorizing Provider: Royal Guy DO Collected: 06/19/2024 1138 Ordering Location: [facility] Received: 06/19/2024 1506 Center [place] Pathologist: Kalyan Wayne MD Specimens: A) - DUODENUM SECOND PART BIOPSY, DUODENUM BIOPSY B) - ESOPHAGUS MID BIOPSY, MID ESOPAHGUS BIOPSY Path report.final diagnosis SEE COMMENT A. Duodenum second part biopsy: Duodenal mucosa, no significant pathological diagnosis. Absence of histological features of celiac disease. B. Midesophagus biopsy: Esophageal squamous mucosa, no significant pathological diagnosis. Absence of significantly increased eosinophils. at [address] [place], [place] [address] Laboratory comment By the signature on this report, the individual or group listed as making the Final Interpretation/Diagno sis certifies that they have reviewed this case. Path report.relevant Hx SEE COMMENT Dysphagia, unspecified type [R13.10] Gastroesophageal reflux disease with esophagitis, unspecified whether hemorrhage [K21.00] Path report.gross observation SEE COMMENT A: Received in formalin, labeled with the patient's name, hospital number and DUO, are multiple fragments spears soft tissue aggregating to 0.6 x 0.4 x 0.2 cm. The specimen is submitted in toto in 1 cassette. KE B: Received in formalin, labeled with the patient's name, hospital number and DE, are 2 fragments of spears soft tissue aggregating to 0.5 x 0.3 x 0.2 cm. The specimen is submitted in toto in 1 cassette. [facility] Knee 4 or More Viewson 06-14 Knee 4 or More Views [facility] Imaging Services [address] [place] [address] Knee 4 or More Views MR#: [id number] Acct: [id number] Name: JEREMIAH RUBIO Rep #: [id number] : 1975 M 48 From: Jae Pina MD PCP: Dr. Thomas Padilla MD Status: DEP AMB Study: Knee 4 or More Views Date of Exam: 06/14/24 Exam# [id number] Ordering Dr: Teddy Lauren MD PROCEDURE: KNEE 4 OR MORE VIEWS 06/14/2024 REASON FOR EXAM: POSTERIOR KNEE PAIN, NKI TECHNIQUE: 4 view(s) of the left knee COMPARISON: None available FINDINGS: No fracture, dislocation or joint effusion. The joint spaces appear within limits. The osseous structures appear within limits. Soft tissues appear unremarkable. RAD/Knee 4 or More Views IMPRESSION: Study appears within limits as above. Reading Location: [facility] CC: Dr. Thomas Padilla MD; Dr. 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 Teddy london MD Age/Sex: 48/M Location: [facility] Status: Signed Intake Vital Signs 11/30/23 07:08 06/14/24 10:30 Height 5 ft 6 in 5 ft 6 in Weight: 142 lb BMI 22.8 Intake Visit Reasons: LEFT CALF Chief Complaint: left calf Is patient in pain?: Yes (left calf) Pain scale (1-10): 7 Allergies No Known Allergies Allergy (Verified 06/14/24 10:30) Medications ???Medication ???Instructions ???Recorded ???Confirmed ???Type fluticasone 250 mcg-salmeterol 50 1 ea inhalation BID 11/27/23 0504/09 History mcg/dose blistr powdr for inhalation cyanocobalamin (vitamin B-12) 1,000 mcg PO QDAY 06/14/24 5 History 1,000 mcg capsule diltiazem HCl 60 mg 60 mg PO BID 06/14/24 06/14/24 His tory capsule,extended release 12 hr [facility] Medical History (Updated 06/14/24 @ 11:03 by Teddy Lauren MD) Strain of left gastrocnemius muscle or tendon Left knee pain Heartburn Non-smoker Chronic cough Surgical History H/O neck surgery H/O foot surgery H/O shoulder surgery H/O arthroscopy of knee Social History Smoking Status: Never smoker HPI LEFT CALF Details: This documentation accurately reflects the service provided and the decisions made by me, Dr. Teddy Lauren MD 06/14/24 1028. Part of today???s visit was documented by [ ], acting as scribe. JEREMIAH RUBIO is a 48 year old M here today for left calf pain. 15 years ago some calf pain medial side started. Hard to sustain a long distance run since then. Had a variety of orthopedic anibal geries over the years. Here in [place] 3 years. Likes long distance running. bruising medial side usually. many calf strains. had a lateral release surgery many years ago on the L knee. states this is catatrophic as running is extremely important. going through a divorce. used to be running 20 miles a day like nothing, now wants to do 4-5 miles a day but can't even go a few blocks. 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 Ortho Exam General General: Yes no acute distress Neurologic: Yes alert and Yes oriented x3 Psychologic: Yes reasonable and appropriate Right Knee Patella Translation: 2 Left Knee Skin/Wound: Yes CDI, No ecchymosis, No erythema and No swelling Knee ROM: Yes ROM-Flexion 0-140 Examination: No med jt line tenderness, No Lat jt line tenderness, No TTP inf pole patella, No Crepitus, No Pain with flexion, No Alex's Test, No TTP Patellar tendon, No TTP Tibial tubercle, No TTP Pes Anserine and No Illiotibial band tenderness Quad Atrophy: No Stability: NML: Anterior Drawer, NML: Marcell, NML: Posterior Drawer, NML: Valgus 0, NML: Valgus 30, NML: Varus 0 and NML: Varus 30 Apprehension with Lateral Translation: No Patella Translation: 2 Patellar Tilt Normal: Yes Patella Grind: No KNEE: normal gait, NVI, normal alignment, no pain to medial calf, full strength with PF of the foot and knee flexion. pressured speech. Supplemental Info xr 4 view L knee -joint spaces well-maintained. Patellofemoral joint appears well aligned. Coding Level of Care Code Off vis,new,level 4 Diagnoses Left knee pain M25.562 Strain of left gastrocnemius muscle or tendon S86.112A Assessment and Plan Assessment and Plan (1) Left knee pain: Status: Acute Plan: 48-year-old man with a 20-year history of medial gastrocs sprains on the left side. Typically this is treated nonoperatively with rest ice anti-inflammatories gentle gradual warm up gradually increasing the running distance and other conservative measures like physical therapy or shockwave therapy and ESWT ultrasound TENS machines and other conservative measures. That being said this has been going on for a number of years without formal investigations so I will go ahead and order an MRI of the knee and lower leg as well to see what else could be going on there. Follow-up after the test the patient understands no further questions or concerns. (2) Strain of left gastrocnemius muscle or tendon: Status: Acute Orders: Orders Knee 4 or More Views Today M25.562 - Pain in left knee 06/14/24 1109 Date Teddy Carter Signature: Date (if applicable) CC: Normal [facility] L5500.0550on 05-31-2024 BEEF <0.10 Normal Class 0 [facility] Comment on above: Performed By: #### L 5500.0550 #### [facility] [address] [place], [place], [id number] CHOCOLATE <0.10 Normal Class 0 [facility] Comment on above: Performed By: #### L 5500.0550 #### [facility] [address] [place], [place], [id number] CODFISH <0.10 Normal Class 0 [facility] Comment on above: Performed By: #### L 5500.0550 #### [facility] [address] [place], [place], [id number] COMMENT Comment Normal . [facility] Comment on above: Result Comment: Rylan waller of Specific IgE Class Description of Class ----- < 0.10 0 Negative 0.10 - 0.31 0/I Equivocal/Low 0.32 - 0.55 I Low 0.56 - 1.40 II Moderate 1.41 - 3.90 III High 3.91 - 19.00 IV Very High 19.01 - 100.00 V Very High >100.00 Very High Performed By: #### L 5500.0550 #### [facility] [address] [place], [place], [phone] CORN <0.10 Normal Class 0 [facility] Comment on above: Performed By: #### L 5500.0550 #### [facility] [address] [place], [address] EGG, WHOLE 0.32 kU/L Abnormal Class I [facility] Comment on above: Result Comment: Perf ormed at: [facility] [address] [id number] [employer] Aircraft Designer: Jassi Houser MD, Phone: [phone] Performed By: #### L 5500.0550 #### [facility] [address] [place], [address] MILK (COW) 0.41 kU/L Abnormal Class I [facility] Comment on above: Performed By: #### L 5500.0550 #### [facility] [address] [place], [address] MUSSELS <0.10 Normal Class 0 [facility] Comment on above: Performed By: #### L 5500.0550 #### [facility] [address] [place], [address] PEANUT <0.10 Normal Class 0 [facility] Comment on above: Performed By: #### L 5500.0550 #### [facility] [address] [place], [address] PORK <0.10 Normal Class 0 [facility] Comment on above: Performed By: #### L 5500.0550 #### [facility] [address] [place], [address] SALMON <0.10 Normal Class 0 [facility] Comment on above: Performed By: #### L 5500.0550 #### [facility] [address] [place], [address] SHRIMP <0.10 Normal Class 0 [facility] Comment on above: Performed By: #### L 5500.0550 #### [facility] [address] [place], [address] SOYBEAN <0.10 Normal Class 0 [facility] Comment on above: Performed By: #### L 5500.0550 #### [facility] [address] [place], [address] TUNA <0.10 Normal Class 0 [facility] Comment on above: Performed By: #### L 5500.0550 #### [facility] [address] [place], [address] WHEAT 0.12 kU/L Abnormal Class 0/I [facility] Comment on above: Performed By: #### L 5500.0550 #### [facility] [address] [facility] [place], [address] Absolute neutrophil countOrd ered By: Thomas Padilla on 05-21-2024 Neutrophils (Bld) [#/Vol] 5.1 10*3/uL 2.0-7.7 [facility] Basophil percentageOrdered B y: Thomas Padilla on 05-21-2024 Basophils/100 WBC (Bld) 0.4 % 0-1 [facility] CBC W/Diff, Automatedon Absolute Lymph 1.11 X10 3/uL Normal 0.83-4.51 [facility] Comment on above: Order Comment: Order Date: 05/21/24 Order Info: 0184-1 - CBCD Performed By: #### L 100.0100 #### [facility] [address] [place], [address] Absolute Neut 5.1 X10 3/uL Normal 2.0-7.7 [facility] Comment on above: Order Comment: Order Date: 05/21/24 Order Info: 0184-1 - CBCD Performed By: #### L 100.0100 #### [facility] [address] [place], [address] Basophils/100 WBC (Bld) 0.4 % Normal 0-1 [facility] Comment on above: Order Comment: Order Date: 05/21/24 Order Info: 0184-1 - CBCD Performed By: #### L 100.0100 #### [facility] [address] [place], [address] Eosinophils/100 WBC (Bld) 1.6 % Normal 0-5 [facility] Comment on above: Order Comment: Order Date: 05/21/24 Order Info: 0184-1 - CBCD Performed By: #### L 100.0100 #### [facility] [address] [place], [address] Erythrocyte distribution width (RBC) [Ratio] 17.0 % High 11.6-14.6 [facility] Comment on above: Order Comment: Order Date: 05/21/24 Order Info: 0184-1 - CBCD Performed By: #### L 100.0100 #### [facility] [address] [place], [address] Hematocrit (Bld) [Volume fraction] 40.5 % Normal 40-54 [facility] Comment on above: Order Comment: Order Date: 05/21/24 Order Info: 0184-1 - CBCD Performed By: #### L 100.0100 #### [facility] [address] [place], [address] Hemoglobin (Bld) [Mass/Vol] 13.2 g/dL Normal 13.0-16. 5 [facility] Comment on above: Order Comment: Order Date: 05/21/24 Order Info: 0184-1 - CBCD Performed By: #### L 100.0100 #### [facility] [address] [place], [address] IG% 0.100 Normal 0.0-0.9 [facility] Comment on above: Order Comment: Order Date: 05/21/24 Order Info: 0184-1 - CBCD Result Comment: IG% - Immature Granulocytes (promyelocytes, myelocytes and metamyelocytes) > 1% indicates that a LEFT SHIFT is Present. Performed By: #### L 100.0100 #### [facility] [address] [place], [address] Lymphocytes/100 WBC (Bld) 16.4 % Low 19-41 [facility] Comment on above: Order Comment: Order Date: 05/21/24 Order Info: 0184-1 - CBCD Performed By: #### L 100.0100 #### [facility] [address] [place], [address] MCH (RBC) [Entitic mass] 29.5 pg Normal 27.0-32.0 [facility] Comment on above: Order Comment: Order Date: 05/21/24 Order Info: 0184-1 - CBCD Performed By: #### L 100.0100 #### [facility] [address] [place], [address] MCHC (RBC) [Mass/Vol] 32.6 g/dL Normal 32-36 [facility] Comment on above: Order Comment: Order Date: 05/21/24 Order Info: 0184- - CBCD Performed By: #### L 100.0100 #### [facility] [address] [place], [address] MCV (RBC) [Entitic vol] 90.4 fL Normal 80-94 [facility] Comment on above: Order Comment: Order Date: 05/21/24 Order Info: 0184-1 - CBCD Performed By: #### L 100.0100 #### [facility] [address] [place], [address] Monocytes/100 WBC (Bld) 5.3 % Normal 0-10 [facility] Comment on above: Order Comment: Order Date: 05/21/24 Order Info: 0184-1 - CBCD Performed By: #### L 100.0100 #### [facility] [address] [place], [address] Neutrophils/100 WBC (Bld) 76.2 % High 47-70 [facility] Comment on above: Order Comment: Order Date: 05/21/24 Order Info: 0184-1 - CBCD Performed By: #### L 100.0100 #### [facility] [address] [place], [address] Nucleated RBC (Bld) [#/Vol] 0 10*3/uL Normal 0-5 [facility] Comment on above: Order Comment: Order Date: 05/21/24 Order Info: 0184-1 - CBCD Performed By: #### L 100.0100 #### [facility] [address] [place], [address] Platelet mean volume (Bld) [Entitic vol] 9.1 fL Normal 6.2-12.0 [facility] Comment on above: Order Comment: Order Date: 05/21/24 Order Info: 0184-1 - CBCD Performed By: #### L 100.0100 #### [facility] [address] [place], [address] Platelets (Bld) [#/Vol] 246 10*3/uL Normal 150-450 [facility] Comment on above: Order Comment: Order Date: 05/21/24 Order Info: 0184-1 - CBCD Performed By: #### L 100.0100 #### [facility] [address] [place], [address] RBC (Bld) [#/Vol] 4.48 10*6/uL Low 4.6-6.2 [facility] Comment on above: Order Comment: Order Date: 05/21/24 Order Info: 0184-1 - CBCD Performed By: #### L 100.0100 #### [facility] [address] [place], [address] RDW SD 56.7 fl High 35.1-43.9 [facility] Comment on above: Order Comment: Order Date: 05/21/24 Order Info: 0184-1 - CBCD Performed By: #### L 100.0100 #### [facility] [address] [place], [place], [address] WBC (Bld) [#/Vol] 6.8 10*3/uL Normal 4.4-11.0 [facility] Comment on above: Order Comment: Order Date: 05/21/24 Order Info: 0184-1 - CBCD Performed By: #### L 100.0100 #### [facility] [address] [place], [place], [address] Eosinophil percentageOrdered By: Thomas Padilla on 05-21-2024 Eosinophils/100 WBC (Bld) 1.6 % 0-5 [facility] Erythrocyte distribution wid th (RBC) [Ratio]Ordered By: Thomas Padilla on 05-21-2024 Erythrocyte distribution width (RBC) [Entitic vol] 56.7 fL High 35.1-43.9 [facility] Erythrocyte distribution wid th ratioOrdered By: Thomas Padilla on 05-21-2024 Erythrocyte distribution width (RBC) [Ratio] 17.0 % High 11.6-14.6 [facility] Hematocrit Auto (Bld) [Volum e fraction]Ordered By: Thomas Padilla on 05-21-2024 Hematocrit (Bld) [Volume fraction] 40.5 % 40-54 [facility] Hemoglobin measurementOrdere d By: Thomas Padilla on 05-21-2024 Hemoglobin (Bld) [Mass/Vol] 13.2 g/dL 13.0-16. 5 [facility] Immature granulocytes/100 WB C Auto (Bld)Ordered By: Thomas Padilla on 05-21-2024 Immature granulocytes/100 WBC (Bld) 0.100 % 0.0-0.9 [facility] Comment on above: IG% - Immature Granu locytes (promyelocytes, myelocytes and metamyelocytes) > 1% indicates that a LEFT SHIFT is Present. Lymphocytes Auto (Unsp spec) [#/Vol]Ordered By: Thomas Padilla on 05-21-2024 Lymphocytes (Bld) [#/Vol] 1.11 10*3/uL 0.83-4.5 1 [facility] Lymphocytes/100 WBC Auto (Un sp spec)Ordered By: Thomas Padilla on 05-21-2024 Lymphocytes/100 WBC (Bld) 16.4 % Low 19-41 [facility] MCV (mean corpuscular volume ) determinationOrdered By: Thomas Padilla on 05-21-2024 MCV (RBC) [Entitic vol] 90.4 fL 80-94 [facility] Mean corpuscular hemoglobin (MCH) determinationOrdered By: Thomas Padilla on 05-21-2024 MCH (RBC) [Entitic mass] 29.5 pg 27.0-32.0 [facility] Mean corpuscular hemoglobin concentration (MCHC) determinationOrdered By: Thomas Padilla on 05-21-2024 MCHC (RBC) [Mass/Vol] 32.6 g/dL 32-36 [facility] Mean platelet volume determi nationOrdered By: Thomas Padilla on 05-21-2024 Platelet mean volume (Bld) [Entitic vol] 9.1 fL 6.2-12.0 [facility] Monocyte percentageOrdered B y: Thomas Padilla on 05-21-2024 Monocytes/100 WBC (Bld) 5.3 % 0-10 [facility] Neutrophil percentageOrdered By: Thomas Padilla on 05-21-2024 Neutrophils/100 WBC (Bld) 76.2 % High 47-70 [facility] Nucleated red blood cell per centageOrdered By: Thomas Padilla on 05-21-2024 Nucleated RBC/100 WBC (Bld) [Ratio] 0 % 0-5 [facility] Platelet countOrdered By: Heather Padilla on 05-21-2024 Platelets (Bld) [#/Vol] 246 10*3/uL 150-450 [facility] RBC Auto (Bld) [#/Vol]Ordere d By: Thomas Padilla on 05-21-2024 RBC (Bld) [#/Vol] 4.48 10*6/uL Low 4.6-6.2 [facility] White blood cell (WBC) count Ordered By: Thomas Padilla on 05-21-2024 WBC (Bld) [#/Vol] 6.8 10*3/uL 4.4-11.0 [facility] Celiac AB,Comprehensiveon ANTIGLIADIN IGA 5 units Normal 0-19 [facility] Comment on above: Order Comment: Order Date: 04/26/24 Order Info: 075-1 - CELAB Result Comment: Nega tive 0 - 19 Weak Positive 20 - 30 Moderate to Strong Positive >30 Performed By: #### L 3410.2350 #### [facility] [address] [place], [place], [id number] ANTIGLIADIN IGG 2 units Normal 0-19 [facility] Comment on above: Order Comment: Order Date: 04/26/24 Order Info: 075- - CELAB Result Comment: Nega tive 0 - 19 Weak Positive 20 - 30 Moderate to Strong Positive >30 Performed By: #### L 3410.2350 #### [facility] [address] [place], [place], [address] ENDOMYSIAL IGA Negative Normal Negative [facility] Comment on above: Order Comment: Order Date: 04/26/24 Order Info: 075- - CELAB Performed By: #### L 3410.2350 #### [facility] [address] [place], [place], [id number] IMMUNOGLOB A QN 323 mg/dL Normal 90-386 [facility] Comment on above: Order Comment: Order Date: 04/26/24 Order Info: 0751-1 - CELAB Result Comment: Perf ormed at: CB - [facility] [address] [id number] [employer]: Mak Pablo PhD, Phone: [phone] Performed By: #### L 3410.2350 #### [facility] [address] [place], [place], [address] tTG IGA <2 Normal 0-3 [facility] Comment on above: Order Comment: Order Date: 04/26/24 Order Info: 0751-1 - CELAB Result Comment: Nega tive 0 - 3 Weak Positive 4 - 10 Positive >10 Tissue Transglutaminase (tTG) has been identified as the endomysial antigen. Studies have demonstr- ated that endomysial IgA antibodies have over 99% specificity for gluten sensitive enteropathy. Performed By: #### L 3410.2350 #### [facility] [address] [place], [address] tTG IGG 4 U/mL Normal 0-5 [facility] Comment on above: Order Comment: Order Date: 04/26/24 Order Info: 0751-1 - CELAB Result Comment: Nega tive 0 - 5 Weak Positive 6 - 9 Positive >9 Performed By: #### L 3410.2350 #### [facility] [address] [place], [address] Absolute neutrophil countOrd ered By: Thomas Padilla on 04-26-2024 Neutrophils (Bld) [#/Vol] 2.0 10*3/uL 2.0-7.7 [facility] Basophil percentageOrdered B y: Thomas Padilla on 04-26-2024 Basophils/100 WBC (Bld) 0.5 % 0-1 [facility] CBC W/Diff, Automatedon - Absolute Lymph 1.26 X10 3/uL Normal 0.83-4.51 [facility] Comment on above: Performed By: #### L 503.6550, L100.0100, L503.6030 #### [facility] [address] [place], [address] Absolute Neut 2.0 X10 3/uL Normal 2.0-7.7 [facility] Comment on above: Performed By: #### L 503.6550, L100.0100, L503.6030 #### [facility] [address] [place], [address] Basophils/100 WBC (Bld) 0.5 % Normal 0-1 [facility] Comment on above: Performed By: #### L 503.6550, L100.0100, L503.6030 #### [facility] [address] [place], [address] Eosinophils/100 WBC (Bld) 6.1 % High 0-5 [facility] Comment on above: Performed By: #### L 503.6550, L100.0100, L503.6030 #### [facility] [address] [place], [address] Erythrocyte distribution width (RBC) [Ratio] 16.5 % High 11.6-14.6 [facility] Comment on above: Performed By: #### L 503.6550, L100.0100, L503.6030 #### [facility] [address] [place], [address] Hematocrit (Bld) [Volume fraction] 41.9 % Normal 40-54 [facility] Comment on above: Performed By: #### L 503.6550, L100.0100, L503.6030 #### [facility] [address] [place], [address] Hemoglobin (Bld) [Mass/Vol] 13.5 g/dL Normal 13.0-16. 5 [facility] Comment on above: Performed By: #### L 503.6550, L100.0100, L503.6030 #### [facility] [address] [place], [address] IG% 0.300 Normal 0.0-0.9 [facility] Comment on above: Result Comment: IG% - Immature Granulocytes (promyelocytes, myelocytes and metamyelocytes) > 1% indicates that a LEFT SHIFT is Present. Performed By: #### L 503.6550, L100.0100, L503.6030 #### [facility] [address] [place], [address] Lymphocytes/100 WBC (Bld) 32.2 % Normal 19-41 [facility] Comment on above: Performed By: #### L 503.6550, L100.0100, L503.6030 #### [facility] [address] [place], [address] MCH (RBC) [Entitic mass] 28.7 pg Normal 27.0-32.0 [facility] Comment on above: Performed By: #### L 503.6550, L100.0100, L503.6030 #### [facility] [address] [place], [address] MCHC (RBC) [Mass/Vol] 32.2 g/dL Normal 32-36 [facility] Comment on above: Performed By: #### L 503.6550, L100.0100, L503.6030 #### [facility] [address] [place], [address] MCV (RBC) [Entitic vol] 89.0 fL Normal 80-94 [facility] Comment on above: Performed By: #### L 503.6550, L100.0100, L503.6030 #### [facility] [address] [place], [address] Monocytes/100 WBC (Bld) 9.7 % Normal 0-10 [facility] Comment on above: Performed By: #### L 503.6550, L100.0100, L503.6030 #### [facility] [address] [place], [address] Neutrophils/100 WBC (Bld) 51.2 % Normal 47-70 [facility] Comment on above: Performed By: #### L 503.6550, L100.0100, L503.6030 #### [facility] [address] [place], [address] Nucleated RBC (Bld) [#/Vol] 0 10*3/uL Normal 0-5 [facility] Comment on above: Performed By: #### L 503.6550, L100.0100, L503.6030 #### [facility] [address] [place], [address] Platelet mean volume (Bld) [Entitic vol] 9.6 fL Normal 6.2-12.0 [facility] Comment on above: Performed By: #### L 503.6550, L100.0100, L503.6030 #### [facility] [address] [place], [address] Platelets (Bld) [#/Vol] 199 10*3/uL Normal 150-450 [facility] Comment on above: Performed By: #### L 503.6550, L100.0100, L503.6030 #### [facility] [address] [place], [address] RBC (Bld) [#/Vol] 4.71 10*6/uL Normal 4.6-6.2 [facility] Comment on above: Performed By: #### L 503.6550, L100.0100, L503.6030 #### [facility] [address] [place], [address] RDW SD 54.0 fl High 35.1-43.9 [facility] Comment on above: Performed By: #### L 503.6550, L100.0100, L503.6030 #### [facility] [address] [place], [address] WBC (Bld) [#/Vol] 3.9 10*3/uL Low 4.4-11.0 [facility] Comment on above: Performed By: #### L 503.6550, L100.0100, L503.6030 #### [facility] [address] [place], [address] Calculated total iron bindin g capacityOrdered By: Thomas Padilla on 04-26-2024 Total Iron Binding Capacity 326 ug/dL 250-450 [facility] Deamidated gliadin IgA antib cleve assayOrdered By: Thomas Padilla on 04-26-2024 Anti-Gliadin IgA Antibody 5 units 0-19 [facility] Comment on above: Negative 0 - 19 Weak Positive 20 - 30 Moderate to Strong Positive >30 Deamidated gliadin IgG antib cleve assayOrdered By: Thomas Padilla on 04-26-2024 Anti-Gliadin IgG Antibody 2 units 0-19 [facility] Comment on above: Negative 0 - 19 Weak Positive 20 - 30 Moderate to Strong Positive >30 Endomysial IgA antibody assa yOrdered By: Thomas Padilla on 04-26-2024 Endomysial IgA Antibody Negative Negative [facility] Eosinophil percentageOrdered By: Thomas Padilla on 04-26-2024 Eosinophils/100 WBC (Bld) 6.1 % High 0-5 [facility] Erythrocyte distribution wid th ratioOrdered By: Thomas Padilla on 04-26-2024 Erythrocyte distribution width (RBC) [Ratio] 16.5 % High 11.6-14.6 [facility] Erythrocyte distribution wid th standard deviationOrdered By: Thomas Padilla on 04-26-2024 Erythrocyte distribution width (RBC) [Entitic vol] 54.0 fL High 35.1-43.9 [facility] Ferritinon 04-26-2024 Ferritin [Mass/Vol] 38 ng/mL Normal 37-417 [facility] Comment on above: Order Comment: ADD T O BLOOD IN LAB Performed By: #### L 503.6550, L100.0100, L503.6030 #### [facility] [address] [place], [place], [id number] Hematocrit Auto (Bld) [Volum e fraction]Ordered By: Thomas Padilla on 04-26-2024 Hematocrit (Bld) [Volume fraction] 41.9 % 40-54 [facility] Hemoglobin measurementOrdere d By: Thomas Padilla on 04-26-2024 Hemoglobin (Bld) [Mass/Vol] 13.5 g/dL 13.0-16. 5 [facility] Immature granulocytes/100 WB C Auto (Bld)Ordered By: Thomas Padilla on 04-26-2024 Immature granulocytes/100 WBC (Bld) 0.300 % 0.0-0.9 [facility] Comment on above: IG% - Immature Granu locytes (promyelocytes, myelocytes and metamyelocytes) > 1% indicates that a LEFT SHIFT is Present. Iron (Unsp spec) [Mass/Mass] Ordered By: Thomas Padilla on 04-26-2024 Iron [Mass/Vol] 106 ug/dL 65-175 [facility] Iron saturation [Mass fracti on]Ordered By: Thomas Padilla on 04-26-2024 Iron Saturation 33.0 % 9-55 [facility] Iron+Iron Binding Capacityon 04-26-2024 Iron [Mass/Vol] 106 ug/dL Normal 65-175 [facility] Comment on above: Order Comment: ADD T O BLOOD IN LAB Performed By: #### L 503.6550, L100.0100, L503.6030 #### [facility] [address] [place], [address] IRON SATURATION 33.0 Normal 9-55 [facility] Comment on above: Order Comment: ADD T O BLOOD IN LAB Performed By: #### L 503.6550, L100.0100, L503.6030 #### [facility] [address] [place], [address] TIBC 326 ug/dL Normal 250-450 [facility] Comment on above: Order Comment: ADD T O BLOOD IN LAB Performed By: #### L 503.6550, L100.0100, L503.6030 #### [facility] [address] [place], [address] UIBC 220 ug/dL Low 228-428 [facility] Comment on above: Order Comment: ADD T O BLOOD IN LAB Performed By: #### L 503.6550, L100.0100, L503.6030 #### [facility] [address] [place], [address] Lymphocytes Auto (Unsp spec) [#/Vol]Ordered By: Thomas Padilla on 04-26-2024 Lymphocytes (Bld) [#/Vol] 1.26 10*3/uL 0.83-4.5 1 [facility] Lymphocytes/100 WBC Auto (Un sp spec)Ordered By: Thomas Padilla on 04-26-2024 Lymphocytes/100 WBC (Bld) 32.2 % 19-41 [facility] MCV (mean corpuscular volume ) determinationOrdered By: Thomas Padilla on 04-26-2024 MCV (RBC) [Entitic vol] 89.0 fL 80-94 [facility] Mean corpuscular hemoglobin (MCH) determinationOrdered By: Thomas Padilla on 04-26-2024 MCH (RBC) [Entitic mass] 28.7 pg 27.0-32.0 [facility] Mean corpuscular hemoglobin concentration (MCHC) determinationOrdered By: Thomas Padilla on 04-26-2024 MCHC (RBC) [Mass/Vol] 32.2 g/dL 32-36 [facility] Mean platelet volume determi nationOrdered By: Thomas Padilla on 04-26-2024 Platelet mean volume (Bld) [Entitic vol] 9.6 fL 6.2-12.0 [facility] Monocyte percentageOrdered B y: Thomas Padilla on 04-26-2024 Monocytes/100 WBC (Bld) 9.7 % 0-10 [facility] Neutrophil percentageOrdered By: Thomas Padilla on 04-26-2024 Neutrophils/100 WBC (Bld) 51.2 % 47-70 [facility] No Panel InformationOrdered By: Thomas Padilla on 04-26-2024 Tissue Transglutaminase IgG Ab 4 U/mL 0-5 [facility] Comment on above: Negative 0 - 5 Weak Positive 6 - 9 Positive >9 Unsaturated Iron Binding Capacity 220 ug/dL Low 228-428 [facility] Nucleated red blood cell per centageOrdered By: Thomas Padilla on 04-26-2024 Nucleated RBC/100 WBC (Bld) [Ratio] 0 % 0-5 [facility] Platelet countOrdered By: Heather Padilla on 04-26-2024 Platelets (Bld) [#/Vol] 199 10*3/uL 150-450 [facility] RBC Auto (Bld) [#/Vol]Ordere d By: Thomas Padilla on 04-26-2024 RBC (Bld) [#/Vol] 4.71 10*6/uL 4.6-6.2 [facility] Serum immunoglobulin A measu rementOrdered By: Thomas Padilla on 04-26-2024 Immunoglobulin A 323 mg/dL 90-386 [facility] Comment on above: Performed at: [place] [id number] Director: Mak Pablo PhD, Phone: [phone] Serum or plasma ferritin dixie surement (mass/volume)Ordered By: Thomas Padilla on 04-26-2024 Ferritin [Mass/Vol] 38 ng/mL 37-417 [facility] White blood cell (WBC) count Ordered By: Thomas Padilla on 04-26-2024 WBC (Bld) [#/Vol] 3.9 10*3/uL Low 4.4-11.0 [facility] tTG IgA Qn (S)Ordered By: Heather Padilla on 04-26-2024 Tissue Transglutaminase IgA Ab <2 U/mL 0-3 [facility] Comment on above: Negative 0 - 3 Weak Positive 4 - 10 Positive >10 Tissue Transglutaminase (tTG) has been identified as the endomysial antigen. Studies have demonstr- ated that endomysial IgA antibodies have over 99% specificity for gluten sensitive enteropathy. Ferritinon 03-19-2024 Ferritin [Mass/Vol] 26 ng/mL Normal 26-388 [facility] Comment on above: Order Comment: REYNA Esquivel ADD ON TO BLOOD DONE ON 03/18/24 Performed By: #### L 503.6150, L503.0105, L503.6550, L503.6075 ####[facility] [address] [place], [place], [address] Ironon 03-19-2024 Iron [Mass/Vol] 34 ug/dL Low 65-175 [facility] Comment on above: Order Comment: REYNA Esquivel ADD ON TO BLOOD DONE ON 03/18/24 Performed By: #### L 503.6150, L503.0105, L503.6550, L503.6075 ####[facility] [id number] [place], [address] Iron Binding Capacity,Totalo n 03-19-2024 TIBC 410 ug/dL Normal 250-450 [facility] Comment on above: Order Comment: PLEAS E ADD ON TO BLOOD DONE ON 03/18/24 Performed By: #### L 503.6150, L503.0105, L503.6550, L503.6075 ####[facility] [id number] [place], [address] Vitamin B12on 03-19-2024 Cobalamin (Vitamin B12) [Mass/Vol] 453 pg/mL Normal 211-911 [facility] Comment on above: Order Comment: PLEAS E ADD ON TO BLOOD DONE ON 03/18/24 Performed By: #### L 503.6150, L503.0105, L503.6550, L503.6075 ####[facility] [address] [place], [address] Absolute neutrophil countOrd ered By: Thomas Padilla on 03-18-2024 Neutrophils (Bld) [#/Vol] 1.7 10*3/uL Low 2.0-7.7 [facility] Albumin to globulin ratioOrd ered By: Thomas Padilla on 03-18-2024 Albumin/Globulin [Mass ratio] 0.9 {ratio} 0.9-2.4 [facility] Basophil percentageOrdered B y: Thomas Padilla on 03-18-2024 Basophils/100 WBC (Bld) 0.9 % 0-1 [facility] Bilirubin, totalOrdered By: Thomas Padilla on 03-18-2024 Bilirubin [Mass/Vol] 0.40 mg/dL 0.20-1.00 [facility] Comment on above: For patients on eltr ombopag therapy, use of Dimension [place] TBIL is not recommended. Blood urea nitrogen (BUN)/cr eatinine ratioOrdered By: Thomas Padilla on 03-18-2024 Urea nitrogen/Creatinine [Mass ratio] 18.2 mg/mg 10-20 [facility] CBC W/Diff, Automatedon Absolute Lymph 1.01 X10 3/uL Normal 0.83-4.51 [facility] Comment on above: Order Comment: Order Date: 03/15/24Order Info: [id number] - CBCD Performed By: #### L 500.4100, L100.0100, L500.4050 ####[facility] [address] [place], [address] Absolute Neut 1.7 X10 3/uL Low 2.0-7.7 [facility] Comment on above: Order Comment: Order Date: 03/15/24Order Info: [id number] - CBCD Performed By: #### L 500.4100, L100.0100, L500.4050 ####[facility] [address] [place], [address] Basophils/100 WBC (Bld) 0.9 % Normal 0-1 [facility] Comment on above: Order Comment: Order Date: 03/15/24Order Info: [id number] - CBCD Performed By: #### L 500.4100, L100.0100, L500.4050 ####[facility] [address] [place], [address] Eosinophils/100 WBC (Bld) 9.9 % High 0-5 [facility] Comment on above: Order Comment: Order Date: 03/15/24Order Info: [id number] - CBCD Performed By: #### L 500.4100, L100.0100, L500.4050 ####[facility] [address] [place], [address] Erythrocyte distribution width (RBC) [Ratio] 13.4 % Normal 11.6-14.6 [facility] Comment on above: Order Comment: Order Date: 03/15/24Order Info: [id number] - CBCD Performed By: #### L 500.4100, L100.0100, L500.4050 ####[facility] [address] [place], [address] Hematocrit (Bld) [Volume fraction] 39.5 % Low 40-54 [facility] Comment on above: Order Comment: Order Date: 03/15/24Order Info: [id number]- - CBCD Performed By: #### L 500.4100, L100.0100, L500.4050 ####[facility] [address] [place], [address] Hemoglobin (Bld) [Mass/Vol] 12.1 g/dL Low 13.0-16. 5 [facility] Comment on above: Order Comment: Order Date: 03/15/24Order Info: [id number]- - CBCD Performed By: #### L 500.4100, L100.0100, L500.4050 ####[facility] [address] [place], [address] IG% 0.300 Normal 0.0-0.9 [facility] Comment on above: Order Comment: Order Date: 03/15/24Order Info: [id number]- - CBCD Result Comment: IG% - Immature Granulocytes (promyelocytes, myelocytes and metamyelocytes) > 1% indicates that a LEFT SHIFT is Present. Performed By: #### L 500.4100, L100.0100, L500.4050 ####[facility] [address] [place], [address] Lymphocytes/100 WBC (Bld) 29.4 % Normal 19-41 [facility] Comment on above: Order Comment: Order Date: 03/15/24Order Info: [id number]- - CBCD Performed By: #### L 500.4100, L100.0100, L500.4050 ####[facility] [address] [place], [address] MCH (RBC) [Entitic mass] 27.2 pg Normal 27.0-32.0 [facility] Comment on above: Order Comment: Order Date: 03/15/24Order Info: [id number] - CBCD Performed By: #### L 500.4100, L100.0100, L500.4050 ####[facility] [address] [place], [address] MCHC (RBC) [Mass/Vol] 30.6 g/dL Low 32-36 [facility] Comment on above: Order Comment: Order Date: 03/15/24Order Info: [id number] - CBCD Performed By: #### L 500.4100, L100.0100, L500.4050 ####[facility] [address] [place], [address] MCV (RBC) [Entitic vol] 88.8 fL Normal 80-94 [facility] Comment on above: Order Comment: Order Date: 03/15/24Order Info: [id number]- - CBCD Performed By: #### L 500.4100, L100.0100, L500.4050 ####[facility] [address] [place], [address] Monocytes/100 WBC (Bld) 10.5 % High 0-10 [facility] Comment on above: Order Comment: Order Date: 03/15/24Order Info: [id number] - CBCD Performed By: #### L 500.4100, L100.0100, L500.4050 ####[facility] [address] [place], [address] Neutrophils/100 WBC (Bld) 49.0 % Normal 47-70 [facility] Comment on above: Order Comment: Order Date: 03/15/24Order Info: [id number] - CBCD Performed By: #### L 500.4100, L100.0100, L500.4050 ####[facility] [address] [place], [address] Nucleated RBC (Bld) [#/Vol] 0 10*3/uL Normal 0-5 [facility] Comment on above: Order Comment: Order Date: 03/15/24Order Info: [id number] - CBCD Performed By: #### L 500.4100, L100.0100, L500.4050 ####[facility] [address] [place], [address] Platelet mean volume (Bld) [Entitic vol] 9.5 fL Normal 6.2-12.0 [facility] Comment on above: Order Comment: Order Date: 03/15/24Order Info: [id number] - CBCD Performed By: #### L 500.4100, L100.0100, L500.4050 ####[facility] [address] [place], [address] Platelets (Bld) [#/Vol] 246 10*3/uL Normal 150-450 [facility] Comment on above: Order Comment: Order Date: 03/15/24Order Info: [id number] - CBCD Performed By: #### L 500.4100, L100.0100, L500.4050 ####[facility] [address] [place], [address] RBC (Bld) [#/Vol] 4.45 10*6/uL Low 4.6-6.2 [facility] Comment on above: Order Comment: Order Date: 03/15/24Order Info: [id number] - CBCD Performed By: #### L 500.4100, L100.0100, L500.4050 ####[facility] [address] [place], [address] RDW SD 43.6 fl Normal 35.1-43.9 [facility] Comment on above: Order Comment: Order Date: 03/15/24Order Info: [id number] - CBCD Performed By: #### L 500.4100, L100.0100, L500.4050 ####[facility] [address] [place], [address] WBC (Bld) [#/Vol] 3.4 10*3/uL Low 4.4-11.0 [facility] Comment on above: Order Comment: Order Date: 03/15/24Order Info: [id number] - CBCD Performed By: #### L 500.4100, L100.0100, L500.4050 ####[facility] [address] [place], [address] Carbon dioxide measurementOr dered By: Thomas Padilla on 03-18-2024 CO2 [Moles/Vol] 27.0 mmol/L 21.0-32.0 [facility] Chloride measurementOrdered By: Thomas Padilla on 03-18-2024 Chloride [Moles/Vol] 103 mmol/L 98-107 [facility] Comprehensive Metabolic Prof ilon 03-18-2024 Albumin [Mass/Vol] 3.7 g/dL Normal 3.2-5.0 [facility] Comment on above: Order Comment: Order Date: 03/15/24Order Info: [id number] - CMPOrder Info: [id number] - LIPIDOrder Info: [id number] - PSA Performed By: #### L 500.4100, L100.0100, L500.4050 ####[facility] [address] [place], [address] Albumin/Globulin [Mass ratio] 0.9 {ratio} Normal 0.9-2.4 [facility] Comment on above: Order Comment: Order Date: 03/15/24Order Info: [id number] - CMPOrder Info: [id number] - LIPIDOrder Info: [id number] - PSA Performed By: #### L 500.4100, L100.0100, L500.4050 ####[facility] [address] [place], [address] ALK P 61 U/L Normal 45-117 [facility] Comment on above: Order Comment: Order Date: 03/15/24Order Info: [id number] - CMPOrder Info: [id number] - LIPIDOrder Info: [id number] - PSA Performed By: #### L 500.4100, L100.0100, L500.4050 ####[facility] [address] [place], [address] ALT [Catalytic activity/Vol] 25 U/L Normal 16-61 [facility] Comment on above: Order Comment: Order Date: 03/15/24Order Info: [id number] - CMPOrder Info: [id number] - LIPIDOrder Info: [id number] - PSA Performed By: #### L 500.4100, L100.0100, L500.4050 ####[facility] [address] [place], [address] AST [Catalytic activity/Vol] 31 U/L Normal 15-37 [facility] Comment on above: Order Comment: Order Date: 03/15/24Order Info: [id number] - CMPOrder Info: [id number] - LIPIDOrder Info: [id number] - PSA Performed By: #### L 500.4100, L100.0100, L500.4050 ####[facility] [address] [place], [address] Bilirubin [Mass/Vol] 0.40 mg/dL Normal 0.20-1.00 [facility] Comment on above: Order Comment: Order Date: 03/15/24Order Info: [id number] - CMPOrder Info: [id number] - LIPIDOrder Info: [id number] - PSA Result Comment: For patients on eltrombopag therapy, use of Dimension [place] TBIL is not recommended. Performed By: #### L 500.4100, L100.0100, L500.4050 ####[facility] [address] [place], [address] BUN/CRE 18.2 RATIO Normal 10-20 [facility] Comment on above: Order Comment: Order Date: 03/15/24Order Info: [id number] - CMPOrder Info: [id number] - LIPIDOrder Info: [id number] - PSA Performed By: #### L 500.4100, L100.0100, L500.4050 ####[facility] [address] [place], [address] CA,Total 8.7 mg/dL Normal 8.5-10.1 [facility] Comment on above: Order Comment: Order Date: 03/15/24Order Info: [id number] - CMPOrder Info: [id number] - LIPIDOrder Info: [id number] - PSA Performed By: #### L 500.4100, L100.0100, L500.4050 ####[facility] [address] [place], [address] Chloride [Moles/Vol] 103 mmol/L Normal 98-107 [facility] Comment on above: Order Comment: Order Date: 03/15/24Order Info: [id number]- - CMPOrder Info: [id number] - LIPIDOrder Info: [id number] - PSA Performed By: #### L 500.4100, L100.0100, L500.4050 ####[facility] [address] [place], [address] CO2 [Moles/Vol] 27.0 mmol/L Normal 21.0-32.0 [facility] Comment on above: Order Comment: Order Date: 03/15/24Order Info: [id number]- - CMPOrder Info: [id number] - LIPIDOrder Info: [id number] - PSA Performed By: #### L 500.4100, L100.0100, L500.4050 ####[facility] [address] [place], [address] Creatinine [Mass/Vol] 0.82 mg/dL Normal 0.70-1.30 [facility] Comment on above: Order Comment: Order Date: 03/15/24Order Info: [id number] - CMPOrder Info: [id number] - LIPIDOrder Info: [id number] - PSA Result Comment: The validity of the calculated GFR GFRAA in patients over 70 years has not been determined. Clinical correlation is essential. Performed By: #### L 500.4100, L100.0100, L500.4050 ####[facility] [address] [place], [address] EST GFR - AA 130 mL/min Normal >60 [facility] Comment on above: Order Comment: Order Date: 03/15/24Order Info: [id number] - CMPOrder Info: [id number] - LIPIDOrder Info: [id number] - PSA Result Comment: Afri can Palauan GFR Calc Performed By: #### L 500.4100, L100.0100, L500.4050 ####[facility] [address] [place], [address] GAP 7 Normal 5-15 [facility] Comment on above: Order Comment: Order Date: 03/15/24Order Info: [id number] - CMPOrder Info: [id number] - LIPIDOrder Info: [id number] - PSA Performed By: #### L 500.4100, L100.0100, L500.4050 ####[facility] [address] [place], [address] GFR/1.73 sq M.predicted among non-blacks MDRD (S/P/Bld) [Vol rate/Area] 107 mL/min/{1.73_m2} Normal >60 [facility] Comment on above: Order Comment: Order Date: 03/15/24Order Info: [id number] - CMPOrder Info: [id number] - LIPIDOrder Info: [id number] - PSA Result Comment: Non- GFR Calc Performed By: #### L 500.4100, L100.0100, L500.4050 ####[facility] [address] [place], [address] Globulin (S) [Mass/Vol] 4.0 g/dL Normal 2.2-4.2 [facility] Comment on above: Order Comment: Order Date: 03/15/24Order Info: [id number] - CMPOrder Info: [id number] - LIPIDOrder Info: [id number] - PSA Performed By: #### L 500.4100, L100.0100, L500.4050 ####[facility] [address] [place], [address] Glucose [Mass/Vol] 94 mg/dL Normal 74-106 [facility] Comment on above: Order Comment: Order Date: 03/15/24Order Info: [id number] - CMPOrder Info: [id number] - LIPIDOrder Info: [id number] - PSA Performed By: #### L 500.4100, L100.0100, L500.4050 ####[facility] [address] [place], [address] Potassium [Moles/Vol] 4.0 mmol/L Normal 3.5-5.1 [facility] Comment on above: Order Comment: Order Date: 03/15/24Order Info: [id number] - CMPOrder Info: [id number] - LIPIDOrder Info: [id number] - PSA Performed By: #### L 500.4100, L100.0100, L500.4050 ####[facility] [address] [place], [address] Sodium [Moles/Vol] 137 mmol/L Normal 136-145 [facility] Comment on above: Order Comment: Order Date: 03/15/24Order Info: [id number] - CMPOrder Info: [id number] - LIPIDOrder Info: [id number] - PSA Performed By: #### L 500.4100, L100.0100, L500.4050 ####[facility] [address] [place], [address] T PROT 7.7 g/dL Normal 6.4-8.2 [facility] Comment on above: Order Comment: Order Date: 03/15/24Order Info: [id number] - CMPOrder Info: [id number] - LIPIDOrder Info: [id number] - PSA Performed By: #### L 500.4100, L100.0100, L500.4050 ####[facility] [address] [place], [address] Urea nitrogen [Mass/Vol] 15 mg/dL Normal 7-18 [facility] Comment on above: Order Comment: Order Date: 03/15/24Order Info: [id number] - CMPOrder Info: [id number] - LIPIDOrder Info: [id number] - PSA Performed By: #### L 500.4100, L100.0100, L500.4050 ####[facility] [address] [place], [place], [address] Eosinophil percentageOrdered By: Thomas Padilla on 03-18-2024 Eosinophils/100 WBC (Bld) 9.9 % High 0-5 [facility] Erythrocyte distribution wid th ratioOrdered By: Thomas Padilla on 03-18-2024 Erythrocyte distribution width (RBC) [Ratio] 13.4 % 11.6-14.6 [facility] Erythrocyte distribution wid th standard deviationOrdered By: Thomas Padilla on 03-18-2024 Erythrocyte distribution width (RBC) [Entitic vol] 43.6 fL 35.1-43.9 [facility] Estimated glomerular filtrat ion rate (GFR) AmericanOrdered By: Thomas Padilla on 03-18-2024 Estimated GFR (MDRD) Amer 130 mL/min >60 [facility] Comment on above: GFR Calc Ferritin measurementOrdered By: Thomas Padilla on 03-18-2024 Ferritin [Mass/Vol] 26 ng/mL 26-388 [facility] Glomerular filtration rate ( GFR) estimationOrdered By: Thomas Padilla on 03-18-2024 Estimated GFR (MDRD) Non-Af Amer 107 mL/min >60 [facility] Comment on above: Non- GFR Calc Glucose measurementOrdered B y: Thomas Padilla on 03-18-2024 Glucose [Mass/Vol] 94 mg/dL 74-106 [facility] Hematocrit Auto (Bld) [Volum e fraction]Ordered By: Thomas Padilla on 03-18-2024 Hematocrit (Bld) [Volume fraction] 39.5 % Low 40-54 [facility] Hemoglobin measurementOrdere d By: Thomas Padilla on 03-18-2024 Hemoglobin (Bld) [Mass/Vol] 12.1 g/dL Low 13.0-16. 5 [facility] High density lipoprotein (HD L) measurementOrdered By: Thomas Padilla on 03-18-2024 Cholesterol in HDL [Mass/Vol] 57 mg/dL >40 [facility] Comment on above: The drugs N-Acetylcy steine and Metamizole may falsely depress this assay. Reference Range HDL <40 mg/dL Low HDL Cholesterol HDL >or= 60 mg/dL High HDL Cholesterol Immature granulocytes/100 WB C Auto (Bld)Ordered By: Thomas Padilla on 03-18-2024 Immature granulocytes/100 WBC (Bld) 0.300 % 0.0-0.9 [facility] Comment on above: IG% - Immature Granu locytes (promyelocytes, myelocytes and metamyelocytes) > 1% indicates that a LEFT SHIFT is Present. Iron (Unsp spec) [Mass/Mass] Ordered By: Thomas Padilla on 03-18-2024 Iron [Mass/Vol] 34 ug/dL Low 65-175 [facility] Laboratory - Chemistry and C hemistry - challengeOrdered By: Thomas Padilla on 03-18-2024 AST [Catalytic activity/Vol] 31 U/L 15-37 [facility] Lipid Profileon 03-18-2024 Cholesterol [Mass/Vol] 167 mg/dL Normal 200 [facility] Comment on above: Order Comment: Order Date: 03/15/24Order Info: [id number] - CMPOrder Info: [id number] - LIPIDOrder Info: [id number] - PSA Result Comment: <200 mg/dL Desirable 200-240 mg/dL Borderline >240 mg/dL High Risk Performed By: #### L 500.4100, L100.0100, L500.4050 ####[facility] [address] [place], [place], [id number] Cholesterol in HDL [Mass/Vol] 57 mg/dL Normal [facility] Comment on above: Order Comment: Order Date: 03/15/24Order Info: [id number] - CMPOrder Info: - LIPIDOrder Info: [id number] - PSA Result Comment: The drugs N-Acetylcysteine and Metamizole may falsely depress this assay. Reference Range HDL <40 mg/dL Low HDL Cholesterol HDL >or= 60 mg/dL High HDL Cholesterol Performed By: #### L 500.4100, L100.0100, L500.4050 ####[facility] [address] [place], [address] Cholesterol in LDL [Mass/Vol] 94 mg/dL Normal 0-130 [facility] Comment on above: Order Comment: Order Date: 03/15/24Order Info: [id number] - CMPOrder Info: [id number] - LIPIDOrder Info: [id number] - PSA Performed By: #### L 500.4100, L100.0100, L500.4050 ####[facility] [address] [place], [address] Cholesterol in VLDL [Mass/Vol] 16 mg/dL Normal 5-40 [facility] Comment on above: Order Comment: Order Date: 03/15/24Order Info: [id number] - CMPOrder Info: [id number] - LIPIDOrder Info: [id number] - PSA Performed By: #### L 500.4100, L100.0100, L500.4050 ####[facility] [address] [place] [place], [address] Triglyceride [Mass/Vol] 80 mg/dL Normal [facility] Comment on above: Order Comment: Order Date: 03/15/24Order Info: [id number] - CMPOrder Info: [id number] - LIPIDOrder Info: [id number] - PSA Result Comment: The drugs N-Acetylcysteine and Metamizole may falsely depress this assay. Serum Triglycerides Reference Interval Normal <150 mg/dL Borderline high 150 - 199 mg/dL High 200 - 499 mg/dL Very High > or = 500 mg/dL Performed By: #### L 500.4100, L100.0100, L500.4050 ####[facility] [address] [place], [address] Low density lipoprotein (LDL ) cholesterol measurementOrdered By: Thomas Padilla on 03-18-2024 Cholesterol in LDL [Mass/Vol] 94 mg/dL 0-130 [facility] Lymphocytes Auto (Unsp spec) [#/Vol]Ordered By: Thomas Padilla on 03-18-2024 Lymphocytes (Bld) [#/Vol] 1.01 10*3/uL 0.83-4.5 1 [facility] Lymphocytes/100 WBC Auto (Un sp spec)Ordered By: Thomas Padilla on 03-18-2024 Lymphocytes/100 WBC (Bld) 29.4 % 19-41 [facility] MCV (mean corpuscular volume ) determinationOrdered By: Thomas Padilla on 03-18-2024 MCV (RBC) [Entitic vol] 88.8 fL 80-94 [facility] Mean corpuscular hemoglobin (MCH) determinationOrdered By: Thomas Padilla on 03-18-2024 MCH (RBC) [Entitic mass] 27.2 pg 27.0-32.0 [facility] Mean corpuscular hemoglobin concentration (MCHC) determinationOrdered By: Thomas Padilla on 03-18-2024 MCHC (RBC) [Mass/Vol] 30.6 g/dL Low 32-36 [facility] Mean platelet volume determi nationOrdered By: Thomas Padilla on 03-18-2024 Platelet mean volume (Bld) [Entitic vol] 9.5 fL 6.2-12.0 [facility] Monocyte percentageOrdered B y: Thomas Padilla on 03-18-2024 Monocytes/100 WBC (Bld) 10.5 % High 0-10 [facility] Neutrophil percentageOrdered By: Thomas Padilla on 03-18-2024 Neutrophils/100 WBC (Bld) 49.0 % 47-70 [facility] Nucleated red blood cell per centageOrdered By: Thomas Padilla on 03-18-2024 Nucleated RBC/100 WBC (Bld) [Ratio] 0 % 0-5 [facility] PSA,Total - Annual Screenon 0203-2025 PSA,TOT SCREEN 0.65 ng/mL Normal 0.00-4.00 [facility] Comment on above: Order Comment: Order Date: 03/15/24Order Info: [id number] - CMPOrder Info: [id number] - LIPIDOrder Info: [id number] - PSA Result Comment: This test was performed using the TPSA assay method for the [employer] chemistry system. Values obtained with different assay methods cannot be used interchangably. When changing PSA assays in the course of monitoring a patient, additional sequential testing should be carried out to confirm baseline values. Performed By: #### P SUIV #### [facility] [address] [place], [address] Platelet countOrdered By: Heather Padilla on 03-18-2024 Platelets (Bld) [#/Vol] 246 10*3/uL 150-450 [facility] Potassium measurementOrdered By: Thomas Padilla on 03-18-2024 Potassium [Moles/Vol] 4.0 mmol/L 3.5-5.1 [facility] RBC Auto (Bld) [#/Vol]Ordere d By: Thomas Padilla on 03-18-2024 RBC (Bld) [#/Vol] 4.45 10*6/uL Low 4.6-6.2 [facility] Screening prostate specific antigen (PSA) measurementOrdered By: Thomas Padilla on 03-18-2024 Prostate Specific Antigen Screen 0.65 ng/mL 0.00-4.00 [facility] Comment on above: This test was perfor med using the TPSA assay method for the[employer] chemistry system. Values obtained with differentassay methods cannot be used interchangably.When changing PSA assays in the course of monitoring apatient, additional sequential testing should be carriedout to confirm baseline values. Serum anion gap measurementO rdered By: Thomas Padilla on 03-18-2024 Anion gap [Moles/Vol] 7 mmol/L 5-15 [facility] Serum globulin measurementOr dered By: Thomas Padilla on 03-18-2024 Globulin (S) [Mass/Vol] 4.0 g/dL 2.2-4.2 [facility] Serum or plasma alanine shafer otransferase (ALT) measurementOrdered By: Thomas Padilla on 03-18-2024 ALT [Catalytic activity/Vol] 25 U/L 16-61 [facility] Serum or plasma albumin hawk urement (mass/volume)Ordered By: Thomas Padilla on 03-18-2024 Albumin [Mass/Vol] 3.7 g/dL 3.2-5.0 [facility] Serum or plasma alkaline robby sphatase measurementOrdered By: Thomas Padilla on 03-18-2024 ALP [Catalytic activity/Vol] 61 U/L 45-117 [facility] Serum or plasma calcium hawk urement (mass/volume)Ordered By: Thomas Padilla on 03-18-2024 Calcium [Mass/Vol] 8.7 mg/dL 8.5-10.1 [facility] Serum or plasma cholesterol measurement (mass/volume)Ordered By: Thomas Padilla on 03-18-2024 Cholesterol [Mass/Vol] 167 mg/dL <200 [facility] Comment on above: <200 mg/dL Desirable 200-240 mg/dL Borderline >240 mg/dL High Risk Serum or plasma creatinine m easurement (mass/volume)Ordered By: Thomas Padilla on 03-18-2024 Creatinine [Mass/Vol] 0.82 mg/dL 0.70-1.30 [facility] Comment on above: The validity of the calculated GFR & GFRAA in patients over 70 years has not been determined. Clinical correlation is essential. Serum or plasma urea nitroge n measurement (mass/volume)Ordered By: Thomas Padilla on 03-18-2024 Urea nitrogen [Mass/Vol] 15 mg/dL 7-18 [facility] Sodium levelOrdered By: Thomas Padilla on 03-18-2024 Sodium [Moles/Vol] 137 mmol/L 136-145 [facility] TIBCOrdered By: Thomas luz on 03-18-2024 Total Iron Binding Capacity 410 ug/dL 250-450 [facility] Total proteinOrdered By: King Padilla on 03-18-2024 Protein [Mass/Vol] 7.7 g/dL 6.4-8.2 [facility] Center Triglycerides measurementOrd ered By: Thomas Padilla on 03-18-2024 Triglyceride [Mass/Vol] 80 mg/dL <199 [facility] Comment on above: The drugs N-Acetylcy steine and Metamizole may falsely depress this assay.Serum Triglycerides Reference Interval Normal <150 mg/dL Borderline high 150 - 199 mg/dL High 200 - 499 mg/dL Very High > or = 500 mg/dL Very low density lipoprotein (VLDL) cholesterol measurementOrdered By: Thomas Padilla on 03-18-2024 VLDL Cholesterol 16 mg/dL 5-40 [facility] Vitamin B12 measurementOrder ed By: Thomas Padilla on 03-18-2024 Cobalamin (Vitamin B12) [Mass/Vol] 453 pg/mL 211-911 [facility] White blood cell (WBC) count Ordered By: Thomas Padilla on 03-18-2024 WBC (Bld) [#/Vol] 3.4 10*3/uL Low 4.4-11.0 [facility] Gastroenterology Visit Repor ton 01-02-2024 Gastroenterology Visit Report [facility] Gastroenterology [address] 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 Is here to discuss results of tests and plan of action. PFSH Medical History Heartburn Non-smoker Chronic cough Surgical History H/O neck surgery H/O foot surgery H/O shoulder surgery H/O arthroscopy of knee Social History Smoking Status: Never smoker HPI HPI Chief Complaint: manometry Details: 48y/o male presents for follow-up post scopes. EGD w/Roper performed 11/30/2023 revealed abnormal esophageal motility, congestive gastropathy; biopsies negative for H. pylori and celiac sprue. GES completed 12/11/2023 was WNL. Manometry 11/10/2023 revealed Esophageal gastric junction outflow obstruction defined by a integrated relaxation pressure very high at 34.7 (normal <15 mmHg). This high IRP explains his esophageal dysphagia. Recommendation for Baclofen 5mg BID. - symptoms ongoing for 10 years - he reports his main symptom is vocal issues - persistent throat clearing - raspy voice - persistent throat clearing - ENT - thought this may be silent reflux - he reports he does experience HB symptoms - HB felt like a heart attack this is infrequent - Omeprazole 40mg Qday - completed 2 weeks and then discontinued - thinks maybe his voice is minimally better - Meloxicam PRN - started 1 month ago - UGI symptoms no worse - denies any weight loss - always drinks a significant amount of water with eating - has never vomited to dislodge food - denies any nausea - he reports a colonoscopy 3 years ago - states this was normal - denies any family h/o colon CA - Exam Const General: healthy appearing, no acute distress and well developed Nutritional Appearance: average body habitus and well nourished Orientation: alert and oriented x3 HENMT Head: normocephalic Ears: hearing grossly normal bilaterally Mouth: moist mucous membranes Teeth and gingiva: dentition normal Eyes Conjunctivae: conjunctivae normal Sclera: sclerae normal Neck Neck: normal visual inspection, full ROM and trachea midline Resp Effort Inspection: normal respiratory effort, able to speak in complete sentences and symmetric chest movement Neuro General: patient alert and patient oriented x3 Cranial Nerves: other (CN' grossly intact, non-focal exam) Cognition: normal cognition Speech: speech normal Gait: normal gait Psych Appearance: grossly normal and well kempt Affect: normal affect Attitude: cooperative Thought Process: normal Assessment and Plan Assessment and Plan (1) Acid reflux: Status: Acute Qualifiers: Esophagitis presence: esophagitis presence not specified Qualified Code(s): K21.9 - Gastro- esophageal reflux disease without esophagitis (2) Esophageal dysmotility: Status: Acute (3) Dysphagia: Status: Acute Qualifiers: Dysphagia type: esophageal phase Qualified Code(s): R13.19 - Other dysphagia (4) Hoarseness of voice: Status: Acute Plan 48y/o male presents for follow-up post scopes. EGD w/Roper performed 11/30/2023 revealed abnormal esophageal motility, congestive gastropathy; biopsies negative for H. pylori and celiac sprue. GES completed 12/11/2023 was WNL. Manometry 11/10/2023 revealed Esophageal gastric junction outflow obstruction defined by a integrated relaxation pressure very high at 34.7 (normal <15 mmHg). This high IRP explains his esophageal dysphagia. Roper revealed a DeMeester score of 33.5 suggestive of significant GERD. He reports dysphagia has never been an issue for him, he thought drinking large quantities of liquid with meals was normal. His (more content not included)... Normal [facility] Gastric Emptying Studyon Gastric Emptying Study [facility] Imaging Services [address], [place] [id number] Gastric Emptying Study MR#: [id number] Acct: [id number] Name: JEREMIAH RUBIO Rep #: [id number] : 1975 M 48 From: Thierry Mcnair PCP: Dr. Thomas Padilla MD Status: REG CLI Study: Gastric Emptying Study Date of Exam: 12/11/23 Exam# [id number] Ordering Dr: Aziza Nieto [id number] CLINICAL: 48-year-old male with history of gastric reflux disease. SEMI-SOLID PHASE 99m Tc SULFUR COLLOID GASTRIC EMPTYING STUDY COMPARISON: None available FINDINGS: The patient was administered 1.0 mCi of 99m Tc sulfur colloid mixed with oatmeal and consumed per os. Image acquisitions in the anterior-posterior projections were obtained for 60 minutes. There is prompt visualization of the stomach. There is no gastroesophageal reflux identified. The T ? linear fit was calculated to be 33.48 minutes, (Normal: 12-56 minutes). NM/Gastric Emptying Study IMPRESSION: 1. NORMAL 99m Tc sulfur colloid semi-solid phase (oatmeal) gastric emptying imaging examination. A. There is normal and preserved semi-solid phase gastric emptying compared to normal controls. (Abel eddy al, J Nucl Med Tech 38: 186, 2010). Electronically Signed: Thierry Gray DO at 9:32 EDT , CC: JONATHAN Nieto; Dr. 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 Roberth Briceno DO Status: REG RCR Insurance: [employer] SELF PAY INSURANCE Discharge Summary D/C summary: It has been my pleasure to treat JEREMIAH RUBIO referred by Dr. Roberth Briceno DO, with the diagnosis of L Adhesive capsulitis, impingement of the shoulder for a total of 2 visit(s). Discharge Date: 12/05/23 Please see the following information for a summary of their discharge status. Subjective Subjective: Pt reports that he has been doing pulleys at the weight room and thinks he just wants a few more exercises and then be done with PT Pain L shoulder pain: Pain Intensity (Out of 10): 0 Overall Improvement % Improvement: 25 Objective Objective/Function: Pt likes to just do all the reps with no break. He fully understands HEP with pictures and bands Goals Goal 1:: I HEP Goal Progress: Goal Met Goal 2:: Increase posture awareness in the clinic and at work Goal Progress: Goal Met Goal 3:: Increase shoulder strength (at the time of the eval: R shoulder flex 8.7 and L 8.1 R shoulder ABD 7.8 and L 7.2 R shoulder ER 10 and L 11.7 R shoulder IR 11.1 and L 9.3) Goal 4:: No pain with ADL's Plan Plan: DC PT. Pt wants to take this HEP and incorporated into his gym routine D/C Information Discharge Comments: DC PT to HEP d/c sentence: If there are questions or concerns regarding this patient's physical therapy, please feel free to call me at [phone]. Thank you for the referral of this patient. Sincerely, Luz Bravo, MPT Balance/Gait/Function al tests Balance/Special Test Scores Quick DASH Score: 20.4525 Improvement % Improvement: 25 12/05/23 0830 CC: Dr. Thomas Padilla MD; Dr. Roberth Briceno DO Signed Normal [facility] EGD Reporton 12-04-2023 EGD Report [facility] Medical Records Department [address] [place] [address] EGD Report MR#: [id number] Acct: [id number] Name: JEREMIAH RUBIO Rep #: [id number] : 1975 48 From: Yovani Friend DO PCP: Dr. Thomas Padilla MD Status:DEP [facility] Patient Name: Jeremiah Rubio Procedure Date: 11/30/2023 7:45 AM Date of : 1975 Age: 48 Procedure: Upper GI endoscopy Indications: Heartburn, Suspected esophageal reflux Providers: DO Royce Montiel MD: Thomas Padilla Medicines: Monitored Anesthesia Care Patient Profile: This is a 48 year old male. Refer to note in patient chart for documentation of history and physical. Patient has symptoms of chronic heartburn. Complications: No immediate complications. Procedure: Pre-Anesthesia Assessment: - Prior to the procedure, a History and Physical was performed, and patient medications and allergies were reviewed. The patient is competent. The risks and benefits of the procedure and the sedation options and risks were discussed with the patient. All questions were answered and informed consent was obtained. Patient identification and proposed procedure were verified by the physician in the pre-procedure area. Mental Status Examination: alert and oriented. Airway Examination: normal oropharyngeal airway and neck mobility. Respiratory Examination: clear to auscultation. CV Examination: normal. Prophylactic Antibiotics: The patient does not require prophylactic antibiotics. Prior Anticoagulants: The patient has taken no anticoagulant or antiplatelet agents except for NSAID medication. ASA Grade Assessment: II - A patient with mild systemic disease. After reviewing the risks and benefits, the patient was deemed in satisfactory condition to undergo the procedure. The anesthesia plan was to use monitored anesthesia care (MAC). Immediately prior to administration of medications, the patient was re-assessed for adequacy to receive sedatives. The heart rate, respiratory rate, oxygen saturations, blood pressure, adequacy of pulmonary ventilation, and response to care were monitored throughout the procedure. The physical status of the patient was re-assessed after the procedure. After obtaining informed consent, the endoscope was passed under direct vision. Throughout the procedure, the patient's blood pressure, pulse, and oxygen saturations were monitored continuously. The Endoscope was introduced through the mouth, and advanced to the second part of duodenum. The upper GI endoscopy was accomplished without difficulty. The patient tolerated the procedure well. Scope In: 7:57:15 AM Scope Out: 8:02:03 AM Total Procedure Duration Time 0 hours 4 minutes 48 seconds Findings: The examined esophagus was normal. Abnormal motility was noted in the esophagus. The cricopharyngeus was abnormal. There is spasticity of the esophageal body. The distal esophagus/lower esophageal sphincter is spastic, but gives up passage to the endoscope. Tertiary peristaltic waves are noted. The ROPER capsule with delivery system was introduced through the mouth and advanced into the esophagus, such that the ROPER pH capsule was positioned 40 cm from the incisors, which was 6 cm proximal to the GE junction. Suction was applied to the well of the ROPER pH capsule to suck in the adjacent mucosa of the esophagus using the external vacuum pump set at a minimum vacuum pressure of 550 mmHg for 30 seconds. The ROPER pH capsule was then deployed by depressing the plunger on top of the handle to advance the locking pin into the mucosa, thereby attaching the capsule to the esophagus. The plunger was then rotated a quarter turn clockwise to release the capsule from the delivery system. The delivery system was then withdrawn. Endoscopy was utilized for probe placement and diagnostic evaluation. Patchy mildly congested mucosa was found in the cardia. Biopsies were taken with a cold forceps for histology. Verification of patient identification for the specimen was done. Estimated blood loss was minimal. Biopsies were taken with a cold forceps for Helicobacter pylori testing. Verification of patient identification for the specimen was done. Estimated blood loss was minimal. No gross lesions were noted in the first portion of the duodenum. Biopsies were taken with a cold forceps for histology. Verification of patient identification for the specimen was done. Estimated blood loss was minimal. Impression: - Normal esophagus. - Abnormal esophageal motility, suspicious for esophageal spasm. - Congestive gastropathy. Biopsied. - No gross lesions in the first portion of the duodenum. Biopsied. - The ROPER pH capsule was positioned 40 cm from the incisors, which was 6 cm proximal to the GE junction. Recommendation: - Discharge (more content not included)... Normal [facility] H Pylori (initial)on 024 H Pylori (initial) - -------- Patient Age/Sex Location Account Attending Physician -------- JEREMIAH RUBIO 48/M EN [id number] Yovani Godfrey DO -------- Specimen: [id number] Received: 11/30/23 Status: SARA Woods Num: [id number] Spec Type: IMMUNO Subm Dr: Yovani Godfrey DO PHYSICIAN INSTITUTION [place] [address] SPECIMEN INFORMATION: Tissue Source: A- Gastric cardia biopsy Clinical Info: Acid reflux Specimen Number: [id number] CPT code: 19732 METHODOLOGY: Deparaffinized sections of prefer/formalin-fixed tissue or PAP/DQ stained slides are incubated with monoclonal/polyclonal antibodies/oligonucle otide probes. Localization is made via biotin free immunoperoxidase method. Appropriate controls are performed and reacted as expected. Results on target cell population are indicated in the following table: RESULTS: ANTIBODY / CLONE RESULT Block A H Pylori (polyclonal) negative These tests were developed and their performance characteristics determined by [facility]. They may not have been cleared or approved by the U.S. Food and Drug Administration. The FDA has determined that such clearance or approval is not necessary. The above immunohistochemical/d ualISH markers are ordered and reviewed by the Pathologist. INTERPRETATION: A. Gastric cardia, biopsy: Negative for Helicobacter pylori organisms. 12/01/2023 Signed (signature on file) Dr. Joel Gonzales MD 12/01/23 1239 -------- Normal [facility] Comment on above: Performed By: #### P H.PYLORI ####[facility] [id number] [place], [address] MR/POSTOP.ANEon 11-30-2023 MR/POSTOP.ANE [facility] Medical Records Department [address] [place] [address] Anesthesia Postop Eval I 11/30/23810 MR#: [id number] Acct: [id number] Name: JEREMIAH RUBIO Rep #: [id number] : 1975 48 From: Freddy Gooden PCP: Dr. Thomas Padilla MD Status:REG [facility] Y Race: C Location: [place] [address] Anesthesia: Postop Eval I Current Vital Signs Temperature: 97.5 F Pulse Rate: 57 Blood Pressure: 107/63 Respiratory Rate: 14 Pulse Ox: 97 Oxygen Delivery Method: Room Air Assessment Airway patent: Yes Spontaneous unlabored respirations: Yes Mental status: Asleep nausea: No Vomiting: No Anesthesia Complication: No Fluid Hydration Crystalloid volume administer (ml): 30 Total IV fluid infused: 30 Progress Note Anesthesia document: Postop Eval 1 completed: Yes 11/30/23811 Date Freddy Carter Signature: Date CC: Signed Normal [facility] MR/BULAZBFR7hx 11-30-2023 MR/POSTOPAN2 [facility] Medical Records Department [address] [place] [address] Anesthesia Postop Eval II 11/30/23813 MR#: [id number] Acct: [id number] Name: JEREMIAH RUBIO Rep #: [id number] : 1975 48 From: Rupesh Cardenas MD PCP: Dr. Thomas Padilla MD Status:REG SDC Y Race: C Location: [place] [address] Anesthesia Postop Eval I Sum Postop Eval Completion status Anesthesia document: Postop Eval 1 completed: Yes Anesthesia Postop Eval I Summary Anesthesia Postop Eval I Summary: Anesthesia Postop Eval I: Assessment Summary Airway patent Yes 11/30/23 08:12 [email or web address] Spontaneous unlabored Yes 11/30/23 08:12 [email or web address] respirations Mental status Asleep 11/30/23 08:12 [email or web address] nausea No 11/30/23 08:12 [email or web address] Vomiting No 11/30/23 08:12 [email or web address] Anesthesia Postop Eval I: Fluid Summary Crystalloid volume administer 30 11/30/23 08:12 [email or web address] (ml) Colloids volume administered ( ml) Blood Product volume administered (ml) Total IV fluid infused 30 11/30/23 08:12 [email or web address] Anesthesia Postop Eval I: Summary Notes Anesthesia Complication No 11/30/23 08:12 [email or web address] Anesthesia Complication Comment: Post-operative progress note Anesthesia: Postop Eval II Evaluation Mental status: Awake Pain Level: 0 nausea: No Vomiting: No 11/30/23813 Date Rupesh Cardenas MD Cosigner Signature: Date CC: Signed Normal [facility] Surgery Specimen Level Kassie 11-30-2023 Surgery Specimen Level IV ------- -------- Patient Age/Sex Location Account Attending Physician -------- JEREMIAH RUBIO 48/M EN [id number] Yovani Godfrey DO -------- Specimen: [id number] Received: 11/30/23 Status: SARA Woods Num: [id number] Spec Type: EGD BIOPSY Subm Dr: Yovani Godfrey DO HEADER OPERATION: EGD biopsy PRE-OP DIAGNOSIS: Acid reflux TISSUE SUBMITTED: A- Gastric cardia biopsy, B- Duodenum biopsy -------- MICROSCOPIC DIAGNOSIS A. Gastric cardia, biopsy: Mild gastritis. See microscopic description and comment. B. Duodenum, biopsy: Fragments of duodenal mucosa, no pathologic diagnosis. 12/01/2023 COMMENT A. The results of immunohistochemistry for Helicobacter pylori will be reported separately ([id number]). MICROSCOPIC DESCRIPTION Slides are reviewed. A. The specimen shows fragments of gastric mucosa with chronic inflammatory cell infiltrates in the lamina propria consisting of lymphocytes and plasma cells, consistent with mild chronic gastritis. GROSS DESCRIPTION A. Received in fixative is one container labeled with the patient's name and designated Gastric cardia biopsy. The specimen consists of two irregular fragments of light spears soft tissue that in aggregate measure 0.6 x 0.3 x 0.1 cm. The specimen is totally submitted in one cassette. B. Received in fixative is one container labeled with the patient's name and designated Duodenum biopsy. The specimen consists of two irregular fragments of light spears soft tissue that in aggregate measure 0.6 x 0.3 x 0.1 cm. The specimen is totally submitted in one cassette. 11/30/2023 TC:3 [facility]:[id number] -------- Patient Age/Sex Location Account Attending Physician -------- JEREMIAH RUBIO 48/M EN [id number] Yovani Godfrey, DO -------- Signed (signature on file) Dr. Joel Gonzales MD 12/01/23 1232 -------- Normal [facility] Comment on above: Performed By: #### P SUIV #### [facility] [address] [place], [place], [id number] Inital Evaluation (1) - PTon 11-28-2023 Inital Evaluation (1) - PT [facility] [address] [place] [address]. [address] [place] [address] / REHABILITATION SERVICES INITIAL EVALUATION MR#: [id number] Acct: [id number] Name: JEREMIAH RUBIO Rep #: [id number] : 1975 48 From: Luz BALLARD Referring Dr.: Dr. Roberth Briceno DO Status: REG RCR Insurance: [employer] SELF PAY INSURANCE Patient's Visit Information Visit Information Visit Information: JEREMIAH RUBIO is a 48 year old M referred to Physical Therapy by Dr. Roberth Briceno DO with a diagnosis of L Adhesive capsulitis, impingement of the shoulder. Date of Evaluation: 11/28/23 Physical Therapist: NELLIE Vicente Visit Plan Frequency: 1x/Week Duration: 4 Weeks Plan: Next visit give prone T, Y and W, double ER and instruct in H W pulleys for IR/ER and mid rows 1X/ week for 3 weeks for scapular strength, RC strength, with gym and HEP HEP: blue band mid rows, orange IR/ER Subjective Subjective: He a cortisone injection last Monday and he now has no pain. His pain started 2 years ago and it just started aching and then it would come and go. He works out daily and would feel it doing push ups. Then it started to hurt with sleeping and certain activities. He is L handed and it is his L shoulder. He can sleep on the L side and it does not wake him up at night. He now does not have decrease ROM and did not have it prior to the shot. Pain L shoulder pain: Pain Intensity (Out of 10): 0 Objective Objective: Full shoulder AROM B PROM L shoulder pain at end range flex and ABD. No pain at end range ER UE MMT: R shoulder flex 8.7 and L 8.1 R shoulder ABD 7.8 and L 7.2 R shoulder ER 10 and L 11.7 R shoulder IR 11.1 and L 9.3 + impingement sign on the L (HK) and no pain on the R but some clucking Balance/Special Test Scores Quick DASH Score: 20.4525 Goals Goal 1:: I HEP Goal Time Frame: 6-8 Weeks Goal 2:: Increase posture awareness in the clinic and at work Goal Time Frame: 6-8 Weeks Goal 3:: Increase shoulder strength (at the time of the eval: R shoulder flex 8.7 and L 8.1 R shoulder ABD 7.8 and L 7.2 R shoulder ER 10 and L 11.7 R shoulder IR 11.1 and L 9.3) Goal Time Frame: 6-8 Weeks Goal 4:: No pain with ADL's Goal Time Frame: 6-8 Weeks Rehabilitation Potential Rehabilitation Potential: Good Anticipated Interventions Patient/Client Instruction: Educate patient on: Condition and Plan of Care For the Purpose of:: To decrease pain, To increase ROM, To improve nutrient delivery to tissue, To improve muscle performance and motor function, To improve ability to perform ADL's, To increase tolerance to activity/condition/po sition, To improve performance and independence with ADL's, To decrease level of supervision to perform tasks, To improve health of tissue, To decrease soft tissue restriction and To increase flexibility/ROM Therapeutic Exercise to Include: Strength training, Endurance training, Body mechanics, Postural training, Neuromotor development, Active ROM and Scapular Strength/Stabilizatio n For the Purpose of:: To decrease pain, To increase ROM, To improve nutrient delivery to tissue, To improve muscle performance and motor function, To improve ability to perform ADL's, To increase tolerance to activity/condition/po sition, To improve performance and independence with ADL's, To decrease level of supervision to perform tasks, To improve health of tissue and To decrease soft tissue restriction Text: Thank you for the opportunity to evaluate your patient. For Medicare and Medicare HMO plans, please review the plan of care and approve it. It will need to be FAXED BACK to us at [phone] for Medicare purposes. For Medicare only, by signing this I certify the plan of care. Please let me know if there are questions or concerns regarding this plan of care. Physician Signature: Date : 11/28/23 0818 CC: Dr. Thomas Padilla MD; Dr. Roberth Briceno DO Signed Normal [facility] Gastroenterology Visit Repor ton 11-03-2023 Gastroenterology Visit Report [facility] Gastroenterology [address] [place] [address] OFFICE VISIT Date of Service: 11/03/23 MR#: [id number] Acct: [id number] Name: JEREMIAH RUBIO Rep #: [id number] : 1975 Provider: JONATHAN arana Age/Sex: 48/M Location[place] [facility] Status: Signed Intake Intake Visit Reasons: Silent Reflux HPI HPI Details: JEREMIAH RUBIO, is a 48 M who presents to the office today for establishment with [facility] with concerns for silent acid reflux. He reports frequently needing to clear his throat of what feels like phlegm, but there's nothing to cough up, and it's caused a raspy voice change. He reports waking up with gastric contents in his mouth, also reports belching stomach contents in to his mouth a couple of times a week, heartburn after large meals late at night. States that he has stopped eating so close to bedtime and reduced the number of sparkling mccann ingested which have significantly reduced most symptoms except for the voice changes. He reports that supper is his largest meal because he has time to sit down and eat, he has small snacks throughout the day while working. Reports that he has on a few occasions vomited while working out if he had eaten right before; admits he tries to avoid eating before workouts now. He denies difficulty chewing and swallowing,nausea, early satiety, excessive belching, bloating, abdominal pain, pain associated with BM, blood in stool or toilet water. Reports daily complete BMs without straining. He denies fever, chills. ROS Const Constitutional: No anorexia, fatigue, fever(s), weight change or abnormal sleep pattern Eyes Eyes: No change in vision ENT ENT: Positive for post nasal drip; No abnormal hearing or difficulty swallowing Resp Respiratory: Positive for cough and excessive phlegm production Cardio Cardiology: No chest pain at rest or chest pain with exertion Gastro GI: Positive for heartburn and vomiting; No abdominal pain, belching, bloating, change in bowel habits, change in stool character, coffee ground emesis, constipation, cramping, diarrhea, difficulty swallowing, feeling full early, excessive flatus, incontinent of stools, Vomiting blood/hematemesis, Blood in stool, loose stools, Black,tarry stools, nausea/dyspepsia, pain with swallowing or other Genitourinary Male: No difficulty urinating Musc Musculoskeletal: No joint pain Skin Skin: No yellowing of the eye or itchy eyes Neuro Neurology: No abnormal hearing Psych Psychiatric: No abnormal sleep pattern, No anxiety and No depression Endo Endocrine: No cold intolerance, fatigue, heat intolerance or weight change Aller/Imm Allergy/Immunologic: No itchy eyes Daren/Lymp Hematologic/Lymphatic : No easy bleeding or easy bruising Exam Const General: cooperative, healthy appearing, comfortable and no acute distress Nutritional Appearance: average body habitus and well nourished Orientation: alert [facility] Head: normal to inspection Ears: hearing grossly normal bilaterally Nose: external nose normal Face and sinus: normal facial exam and face symmetric Eyes General: appearance normal, both eyes and all related structures Sclera: sclerae normal Neck Neck: normal visual inspection and full ROM Neck mass: No Chest Chest palpation inspection: normal inspection of the chest Resp Effort Inspection: normal respiratory effort, able to speak in complete sentences and symmetric chest movement GI Inspection: normal to inspection Skin General: no rashes or lesions noted Neuro General: patient alert, patient awake and patient oriented x3 Cranial Nerves: CN's II-XI intact bilaterally Cognition: normal cognition Speech: speech normal Gait: normal gait Motor: muscle tone normal throughout Extrem General: normal to inspection and full ROM Psych Appearance: well kempt Assessment and Plan Assessment and Plan (1) Acid reflux: Status: Acute Qualifiers: Esophagitis presence: esophagitis presence not specified Qualified Code(s): K21.9 - Gastro- esophageal reflux disease without esophagitis Plan: JEREMIAH RUBIO, is a 48 M who presents to the office today for establishment with [facility] with concerns for silent acid reflux. He reports frequently needing to clear his throat of what feels like phlegm, but there's nothing to cough up, and it's caused a raspy voice change. He reports waking up with gastric contents in his mouth, also reports belching stomach contents in to his mouth a couple of times a week, heartburn after large meals late at night. Differential diagnoses include: laryngopharyngeal reflux, post-nasal drip, esophageal dysmotility, gastroparesis, gastric outlet obstruction, NERD vs GERD. * EGD with Roper study capsule to measure pH changes * GET to evaluate for delayed gastric emptying * esophageal manometry to assess e (more content not included)... Normal [facility] Decalcification bone/plaqueo n 10-10-2023 Decalcification bone/plaque --------- -------- Patient Age/Sex Location Account Attending Physician -------- [id number] Elie Pickens -------- Specimen: [id number] Received: 10/10/23 Status: SARA [place] Num: [id number] Spec Type: NASAL SPEC Subm Dr: Dr. Lg Mckeon MD HEADER OPERATION: Open septo rhinoplasty, functional endoscopic sinus surgery PRE-OP DIAGNOSIS: Allergic rhinitis due to animal (cat, dog) hair and dander, allergic rhinitis due to pollen, other chronic sinusitis, other allergic rhinitis TISSUE SUBMITTED: A- Left sinus contents, B- Right sinus contents -------- MICROSCOPIC DIAGNOSIS A. Left sinus contents, curettings: Chronic sinusitis. Fragments of bone with no pathologic change. B. Right sinus contents, curettings: Chronic sinusitis. Fragments of bone with no pathologic change. [facility] 10/17/2023 MICROSCOPIC DESCRIPTION Slides are reviewed. GROSS DESCRIPTION A. Received in fixative is one container labeled with the patient's name and designated Left sinus contents. The specimen consists of multiple fragments of spears soft tissue mixed with fragments of bone that in aggregate measure 2.0 x 1.5 x 0.2 cm. The specimen is totally submitted in one cassette after decalcification. B. Received in fixative is one container labeled with the patient's name and designated Right sinus contents. The specimen consists of multiple fragments of spears soft tissue mixed with fragments of bone that in aggregate measure 3.0 x 2.5 x 0.3cm. The specimen is totally submitted in one cassette after decalcification. . 10/11/2023 TC:3 CPT:22935s4,63096h1 -------- Patient Age/Sex Location Account Attending Physician -------- JEREMIAH RUBIO /M [facility] [id number] Elie Pickens -------- Signed (signature on file) Dr. Asif Anguiano DO 10/17/23 1126 -------- Normal [facility] Comment on above: Performed By: #### P QUINCY #### [facility] Laboratory [facility] [address] [place], [address] Absolute lymphocyte countOrd ered By: Thomas Padilla on 02-16-2023 Lymphocytes Auto (Unsp spec) [#/Vol] 1.31 10*3/uL 0.83-4.51 [facility] Basophil percentageOrdered B y: Thomas Padilla on 02-16-2023 Basophils/100 WBC (Bld) 0.9 % 0-1 [facility] Bilirubin [Mass/Vol] 0.50 mg/dL 0.20-1.00 [facility] Comment on above: For patients on eltr ombopag therapy, use of Dimension [place] TBIL is not recommended. Chloride [Moles/Vol] 105 mmol/L 98-107 [facility] Cholesterol [Mass/Vol] 179 mg/dL <200 [facility] Comment on above: <200 mg/dL Desirable 200-240 mg/dL Borderline >240 mg/dL High Risk Eosinophils/100 WBC (Bld) 7.9 % 0-5 [facility] Glucose [Mass/Vol] 104 mg/dL 74-106 [facility] Comment on above: Fasting Glucose resu lt from 100 to 125 mg/dL suggests IMPAIRED HOMEOSTASIS per A.D.A. criteria. Neutrophils (Bld) [#/Vol] 1.2 10*3/uL 2.0-7.7 [facility] Neutrophils/100 WBC (Bld) 38.2 % 47-70 [facility] Potassium [Moles/Vol] 4.1 mmol/L 3.5-5.1 [facility] Protein [Mass/Vol] 7.8 g/dL 6.4-8.2 [facility] Sodium [Moles/Vol] 139 mmol/L 136-145 [facility] Triglyceride [Mass/Vol] 40 mg/dL <199 [facility] Comment on above: The drugs N-Acetylcy steine and Metamizole may falsely depress this assay.Serum Triglycerides Reference Interval Normal <150 mg/dL Borderline high 150 - 199 mg/dL High 200 - 499 mg/dL Very High > or = 500 mg/dL WBC (Bld) [#/Vol] 3.2 10*3/uL 4.4-11.0 [facility] Blood erythrocytes count (nu mber/volume)Ordered By: Thomas Padilla on 02-16-2023 RBC (Bld) [#/Vol] 4.57 10*6/uL 4.6-6.2 [facility] Blood hemoglobin measurement (mass/volume)Ordered By: Thomas Padilla on 02-16-2023 Hemoglobin (Bld) [Mass/Vol] 13.8 g/dL 13.0-16. 5 [facility] Blood lymphocytes/100 leukoc ytesOrdered By: Thomas Padilla on 02-16-2023 Lymphocytes/100 WBC (Bld) 41.3 % 19-41 [facility] Blood monocytes/100 leukocyt esOrdered By: Thomas Padilla on 02-16-2023 Monocytes/100 WBC (Bld) 11.7 % 0-10 [facility] Blood platelet mean volumeOr dered By: Thomas Padilla on 02-16-2023 Platelet mean volume (Bld) [Entitic vol] 9.0 fL 6.2-12.0 [facility] Determination of erythrocyte mean corpuscular volume (MCV)Ordered By: Thomas Padilla on 02-16-2023 MCV (RBC) [Entitic vol] 93.4 fL 80-94 [facility] Hematocrit Auto (Bld) [Volum e fraction]Ordered By: Thomas Padilla on 02-16-2023 Hematocrit (Bld) [Volume fraction] 42.7 % 40-54 [facility] Laboratory - Chemistry and C hemistry - challengeOrdered By: Thomas Padilla on 02-16-2023 ALP [Catalytic activity/Vol] 57 U/L 45-117 [facility] ALT [Catalytic activity/Vol] 28 U/L 16-61 [facility] CO2 [Moles/Vol] 29.0 mmol/L 21.0-32.0 [facility] Globulin (S) [Mass/Vol] 3.9 g/dL 2.2-4.2 [facility] Urea nitrogen/Creatinine [Mass ratio] 19.4 mg/mg 10-20 [facility] Laboratory - Hematology and Cell countsOrdered By: Thomas Padilla on 02-16-2023 Erythrocyte distribution width (RBC) [Entitic vol] 46.2 fL 35.1-43.9 [facility] Erythrocyte distribution width (RBC) [Ratio] 13.4 % 11.6-14.6 [facility] Immature granulocytes/100 WBC (Bld) 0.000 % 0.0-0.9 [facility] Comment on above: IG% - Immature Granu locytes (promyelocytes, myelocytes and metamyelocytes) > 1% indicates that a LEFT SHIFT is Present. MCH (RBC) [Entitic mass] 30.2 pg 27.0-32.0 [facility] Nucleated RBC/100 WBC (Bld) [Ratio] 0 % 0-5 [facility] MCHC Auto (RBC) [Mass/Vol]Or dered By: Thomas Padilla on 02-16-2023 MCHC (RBC) [Mass/Vol] 32.3 g/dL 32-36 [facility] No Panel InformationOrdered By: Thomas Padilla on 02-16-2023 Estimated GFR (MDRD) Amer 130 mL/min >60 [facility] Comment on above: GFR Calc Estimated GFR (MDRD) Non-Af Amer 107 mL/min >60 [facility] Comment on above: Non- GFR Calc Thyroid Stimulating Hormone (TSH) 2.56 uIU/mL 0.358-3.74 [facility] Platelets bldOrdered By: King Padilla on 02-16-2023 Platelets (Bld) [#/Vol] 212 10*3/uL 150-450 [facility] Serum or plasma albumin hawk urement (mass/volume)Ordered By: Thomas Padilla on 02-16-2023 Albumin [Mass/Vol] 3.9 g/dL 3.2-5.0 [facility] Serum or plasma albumin/glob ulin mass ratioOrdered By: Thomas Padilla on 02-16-2023 Albumin/Globulin [Mass ratio] 1.0 {ratio} 0.9-2.4 [facility] Serum or plasma calcium hawk urement (mass/volume)Ordered By: Thomas Padilla on 02-16-2023 Calcium [Mass/Vol] 9.4 mg/dL 8.5-10.1 [facility] Serum or plasma cholesterol in HDL measurement (mass/volume)Ordered By: Thomas Padilla on 02-16-2023 Cholesterol in HDL [Mass/Vol] 63 mg/dL >40 [facility] Comment on above: The drugs N-Acetylcy steine and Metamizole may falsely depress this assay. Reference Range HDL <40 mg/dL Low HDL Cholesterol HDL >or= 60 mg/dL High HDL Cholesterol Serum or plasma cholesterol in VLDL measurement (mass/volume)Ordered By: Thomas Padilla on 02-16-2023 Cholesterol in VLDL [Mass/Vol] 8 mg/dL 5-40 [facility] Serum or plasma creatinine m easurement (mass/volume)Ordered By: Thomas Padilla on 02-16-2023 Creatinine [Mass/Vol] 0.82 mg/dL 0.70-1.30 [facility] Comment on above: The validity of the calculated GFR & GFRAA in patients over 70 years has not been determined. Clinical correlation is essential. Serum or plasma low density lipoprotein (LDL) cholesterol measurement (mass/volume)Ordered By: Thomas Padilla on 02-16-2023 Cholesterol in LDL [Mass/Vol] 108 mg/dL 0-130 [facility] Serum or plasma urea nitroge n measurement (mass/volume)Ordered By: Thomas Padilla on 02-16-2023 Urea nitrogen [Mass/Vol] 16 mg/dL 7-18 [facility] Thin prep Papanicolaou smear with manual screeningOrdered By: Thomas Padilla on 02-16-2023 Thin prep Papanicolaou smear with manual screening 35 U/L 15-37 [facility] Thin prep Papanicolaou smear with manual screening 5 5-15 [facility] Vital Signs Date Time Vital Sign Value Performing Clinician Facility 06-19-2024 12:45-0400 Diastolic blood pressure 67 mm[Hg] [address] 06-19-2024 12:45-0400 Heart rate 44 /min [address] 06-19-2024 12:45-0400 Respiratory rate 18 /min [address] 06-19-2024 12:45-0400 SaO2% (BldA) [Mass fraction] 95 % [address] 06-19-2024 12:45-0400 Systolic blood pressure 103 mm[Hg] [address] 06-19-2024 11:52-0400 Body temperature 97.2 [degF] [address] 06-19-2024 11:08-0400 Body mass index (BMI) [Ratio] 23.13 kg/m2 [facility] 04 [facility] 06-19-2024 11:08-0400 Body weight [address] 06-13-2024 10:16-0400 Body height 167.6 cm Royal Thomae DO Work Phone: [facility] 06-13-2024 10:16-0400 Body mass index (BMI) [Ratio] 23.76 kg/m2 Royal Thomae DO Work Phone: [facility] 06-13-2024 10:16-0400 Body weight 66.77 kg Royal Thomae DO Work Phone: [facility] 06-13-2024 10:16-0400 Diastolic blood pressure 68 mm[Hg] Royal Thomae DO Work Phone: [facility] 06-13-2024 10:16-0400 Heart rate 51 /min Royal Thomae DO Work Phone: [facility] 06-13-2024 10:16-0400 Respiratory rate 16 /min Royal Thomae DO Work Phone: [facility] 06-13-2024 10:16-0400 SaO2% (BldA) [Mass fraction] 97 % Royal Thomae DO Work Phone: [facility] 06-13-2024 10:16-0400 Systolic blood pressure 117 mm[Hg] Royal Thomae DO Work Phone: [facility] 03-25-2022 09:45-0500 Diastolic Blood Pressure Non-Invasive 67 1 FARRAH SUPPAN DPM [facility] 03-25-2022 09:45-0500 Heart rate 72 /min FARRAH SUPPAN DPM [facility] 03-25-2022 09:45-0500 Respiratory rate 14 /min FARRAH SUPPAN DPM [facility] 03-25-2022 09:45-0500 Systolic Blood Pressure Non-Invasive 97 1 FARRAH SUPPAN DPM [facility] 03-25-2022 09:40-0500 Diastolic Blood Pressure Non-Invasive 46 1 FARRAH SUPPAN DPM [facility] 03-25-2022 09:40-0500 Heart rate 71 /min FARRAH SUPPAN DPM [facility] 03-25-2022 09:40-0500 Respiratory rate 14 /min FARRAH SUPPAN DPM [facility] 03-25-2022 09:40-0500 Systolic Blood Pressure Non-Invasive 85 1 FARRAH SUPPAN DPM [facility] 03-25-2022 09:35-0500 Diastolic Blood Pressure Non-Invasive 55 1 FARRAH SUPPAN DPM [facility] 03-25-2022 09:35-0500 Heart rate 60 /min FARRAH SUPPAN DPM [facility] 03-25-2022 09:35-0500 Respiratory rate 14 /min FARRAH SUPPAN DPM [facility] 03-25-2022 09:35-0500 Systolic Blood Pressure Non-Invasive 93 1 FARRAH SUPPAN DPM [facility] 03-25-2022 09:15-0500 Respiratory Rate - Anes 17 br/min FARRAH SUPPAN DPM [facility] 03-25-2022 09:10-0500 Respiratory Rate - Anes 14 br/min FARRAH SUPPAN DPM [facility] 03-25-2022 09:05-0500 Respiratory Rate - Anes 19 br/min FARRAH SUPPAN DPM [facility] 03-25-2022 06:43-0500 Body height 167.6 cm FARRAH SUPPAN DPM [facility] 03-25-2022 06:43-0500 Body temperature 97.7 [degF] FARRAH SUPPAN DPM [facility] 03-25-2022 06:43-0500 Body weight 64.5 kg FARRAH SUPPAN DPM [facility] 03-25-2022 06:43-0500 Heart rate 66 /min FARRAH SUPPAN DPM [facility] 03-01-2022 08:14-0500 Blood Pressure Cuff Size FARRAH SUPPAN DPM [facility] 03-01-2022 08:14-0500 Blood Pressure Location FARRAH SUPPAN DPM [facility] 03-01-2022 08:14-0500 Blood Pressure Method FARRAH SUPPAN DPM [facility] 03-01-2022 08:14-0500 Body height 167.6 cm FARRAH SUPPAN DPM [facility] 03-01-2022 08:14-0500 Body weight 64.5 kg FARRAH SUPPAN DPM [facility] 03-01-2022 08:14-0500 Body weight 22.96 kg/m2 FARRAH SUPPAN DPM [facility] 03-01-2022 08:14-0500 Diastolic Blood Pressure Non-Invasive 62 1 FARRAH CIFUENTES DPM [facility] 03-01-2022 08:14-0500 Heart rate 65 /min FARRAH CIFUENTES DPM [facility] 03-01-2022 08:14-0500 Systolic Blood Pressure Non-Invasive 104 1 FARRAH CIFUENTES DPM [facility] Encounters Encounter Date Encounter Type Care Provider Facility Start: 07-31-2024 ambulatory [facility] Facility :[facility] Start: 06-19-2024 End: 06-19-2024 Subsequent hospital visit by physician Royal Guy DO Work Phone: [facility] [place] Comment on above: Dysphagia, unspecifi ed type; Gastroesophageal reflux disease with esophagitis, unspecified whether hemorrhage Start: 06-19-2024 End: 06-19-2024 ambulatory [facility] Start: 06-14-2024 End: 06-14-2024 ambulatory Thomas Padilla Facility:[facility] Start: 06-13-2024 End: 06-13-2024 Office outpatient new 45 minutes Royal Guy DO Work Phone: [facility] Comment on above: Dysphagia, unspecifi ed type; Gastroesophageal reflux disease with esophagitis, unspecified whether hemorrhage Start: 06-13-2024 End: 06-13-2024 ambulatory [facility] Start: 05-21-2024 End: 05-21-[address] Thomas Padilla MD Work Phone: [facility] Work Phone: Start: 05-21-2024 End: 05-21-[address] Thomas Padilla MD -Laboratory, [facility] Start: 05-21-2024 End: 05-21-2024 ambulatory Thomas Padilla Facility:[facility] Start: 04-26-2024 End: 04-26-[address] Thomas Padilla MD Work Phone: [facility] Work Phone: Start: 04-26-2024 End: 04-26-[address] Thomas Padilla MD -Laboratory, [facility] Start: 04-26-2024 End: 04-26-2024 ambulatory Thomas Padilla Facility:[facility] Start: 04-05-2024 Encounter for genera l adult medical examination without abnormal findings Thomas Padilla [facility] Start: 03-18-2024 End: 03-18-[address] Thomas Padilla MD -Laboratory, [facility] Start: 03-18-2024 End: 03-18-2024 ambulatory Thomas Padilla Facility:[facility] Start: 01-02-2024 End: 01-02-2024 ambulatory Thomas Padilla Facility:[facility] Start: 12-11-2023 End: 12-11-2023 ambulatory Thomas Padilla Facility:[facility] Start: 12-05-2023 End: 12-05-2023 ambulatory Roberth Briceno Facility:[facility] Start: 11-30-2023 End: 11-30-2023 ambulatory Thomas Padilla Facility:[facility] Start: 11-10-2023 End: 11-10-2023 ambulatory [facility] Sierra Padilla Facility:[facility] Start: 11-03-2023 End: 11-03-2023 ambulatory Thomas Padilla Facility:[facility] Start: 10-10-2023 End: 10-10-2023 ambulatory Lg Mckeon Facility:[facility] Start: 02-16-2023 End: 02-16-2023 ambulatory [facility] Work Phone: Start: 02-16-2023 End: 02-16-2023 [facility] Start: 03-25-2022 End: 03-25-2022 ambulatory FARRAH CIFUENTES DPM Facility:B Start: 03-25-2022 End: 03-25-2022 SAME DAY STAY FARRAH CIFUENTES DPM [facility] Start: 03-01-2022 End: 03-02-2022 ambulatory FARRAH CIFUENTES DPM Facility:[facility] Start: 03-01-2022 End: 03-01-2022 Admission to establishment FARRAH CIFUENTES DPM [facility] Procedures Date Procedure Procedure Detail Performing Clinician Start: 06-19-2024 Esophagogastroduodenoscopy submucosal injection Royal Guy DO Work Phone: Start: 06-19-2024 PULSE OXIMETRY, SPOT Royal Guy DO Work Phone: Arthroscopy of knee FARRAH BENJAMIN LALON DPM Comment on above: x2, right x1 left Excision of bunion FARRAH SUP AYALA DPM Comment on above: left Fused structure (mor phologic abnormality) FARRAH GARSIAAN DPM Comment on above: acdf 3-4 Shoulder region stru cture (body structure) FARRAH CIFUENTES DPM Comment on above: right tendon repair Plan of Treatment Date Care Activity Detail Author Start: 10-31-2027 Zoster Vaccines (1 of 2) Zoster Vaccines (1 of 2) [facility] Start: 10-14-2024 Influenza vaccination Influenza Vaccine (Season Ended) [facility] Start: 06-19-2024 End: 06-19-2024 Patient encounter procedure 06/19/2024 12:00 PM EDT Appointment [facility] [place] [address] [place] [address] Royal Guy DO [address] [facility], [address] [address] [facility] [place] Start: 06-13-2024 End: 06-13-2025 Esophagogastroduodenoscopy (EGD) w Botox Injection Esophagogastroduodenoscopy (EGD) w Botox Injection Endoscopy Routine Dysphagia, unspecified type Gastroesophageal reflux disease with esophagitis, unspecified whether hemorrhage Expected: 06/13/2024, Expires: 06/13/2025 [facility] Service Area Work Phone: Comment on above: Expected: 06/13/2024, Expires: Start: 05-21-2024 [facility] Start: 10-15-2023 COVID-19 Vaccine ( season) COVID-19 Vaccine ( season) [facility] Start: 10-31-1999 DTaP/Tdap/Td Vaccines (1 - Tdap) DTaP/Tdap/Td Vaccines (1 - Tdap) [facility] Start: 1996 Hepatitis B Vaccines (1 of 3 - 19+ 3-dose series) Hepatitis B Vaccines (1 of 3 - 19+ 3-dose series) [facility] Start: 10-31-1995 Diabetes mellitus screening Diabetes Screening [facility] Start: 10-31-1995 Hepatitis C screening Hepatitis C Screening [facility] Start: 1978 MMR Vaccines (1 of 1 - Standard series) MMR Vaccines (1 of 1 - Standard series) [facility] Start: 1977 HIV screening HIV Screening [facility] Start: 1977 Lipid panel Lipid Panel [facility] Start: 1977 Screening for malignant neoplasm of colon [facility] Start: 1977 Yearly Adult Physical Yearly Adult Physical [facility] Beef IgE Ab [Units/v olume] in Serum [facility] Chocolate IgE Ab [Units/volume] in Serum [facility] Codfish IgE Ab [Unit s/volume] in Serum [facility] Aldrich IgE Ab [Units/v olume] in Serum [facility] Cow milk IgE Ab [Uni ts/volume] in Serum [facility] Food RAST [facility] End: 06-19-2024 Glucose [Mass/volume] in Serum or Plasma Glucose Lab Routine Once (Lab) for 1 Occurrences starting 06/19/2024 until 06/19/2024 [facility] Work Phone: Comment on above: Once (Lab) for 1 Occurrences starting until 06/19/2024 End: 06-19-2024 Moderate Sedation Moderate Sedation Procedures Routine Once for 1 Occurrences starting 06/19/2024 until 06/19/2024 [facility] [place] Service Area Work Phone: Comment on above: Once for 1 Occurrences starting 06/20/19 25 until 06/19/2024 Peanut IgE Ab [Units /volume] in Serum [facility] Pork IgE Ab [Units/v olume] in Serum [facility] Malibu IgE Ab [Units /volume] in Serum [facility] Shrimp IgE Ab [Units /volume] in Serum [facility] Soybean IgE Ab [Unit s/volume] in Serum [facility] Surgical pathology study [facility] Work Phone: Comment on above: Release Upon Ordering for 1 Occurrences starting 06/19/2024 Tuna IgE Ab [Units/v olume] in Serum [facility] Wheat IgE Ab [Units/ volume] in Serum [facility] Whole Egg IgE Ab [Units/volume] in Serum [facility] Payers Date Payer Category Payer Self-pay 2021 Managed Care (Private) [facility] [id number] 2021 Private Health Insurance [id number] 1975 Unknown [id number]. 2.627 1975 Unknown [id number] 2.16.840.1.358865.3.579. 2.627 1975 Unknown [id number] 2..840.1.693322.3.579. 2.1243 1975 Unknown [id number] 2.16.840.1.350017.3.579. 2.1244 Unknown [id number] 2..840.1.757008.3.579. 2.462 Unknown [id number] 2..840.1.875021.3.579. 2.462 Unknown [id number] 2..840.1.566873.3.579. 2.462 Unknown [id number] 2.840.1.538212.3.579. 2.462 Unknown [id number] 2.840.1.599144.3.579. 2.462 Unknown [id number] 2.840.1.526953.3.579. 2.462 Unknown [id number] 2.840.1.683867.3.579. 2.462 Unknown [id number] 2.840.1.950656.3.579. 2.462 Unknown [id number] 2.840.1.821599.3.579. 2.462 Unknown [id number] 2.840.1.658738.3.579. 2.462 Unknown [id number] 2.840.1.141854.3.579. 2.462 Unknown [id number] 2.840.1.010649.3.579. 2.462 Unknown [id number] 2.840.1.549090.3.579. 2.462 Unknown [id number] 2.840.1.833206.3.579. 2.462 Social History Date Type Detail Facility Start: 03-01-2022 End: 06-13-2024 Tobacco smoking status Never smoked tobacco (finding) [facility] Sex Assigned At Female [facility] Start: 1975 Sex Assigned At Male [facility] Start: 05-05-2024 End: 05-27-2024 Sex Male (finding) [facility] Start: 06-13-2024 Tobacco use and exposure Smokeless tobacco non-user [facility] Work Phone: Start: 06-13-2024 End: 06-19-2024 Alcoholic beverage intake Ex-drinker (finding) [facility] Work Phone: Start: 06-13-2024 End: 06-19-2024 History of Social function [facility] Work Phone: Start: 06-13-2024 End: 06-19-2024 Tobacco use panel [facility] Work Phone: Start: 1975 Sex assigned at Not on file [facility] Work Phone: Start: 06-03-2024 End: 06-19-2024 Exposure to SARS-CoV-2 (event) Not sure [facility] Medical Equipment Procedure Code Equipment Code Equipment Original Text Equipment Identifier Dates EGD, with pH impedance probe insertion Gastrointestinal telemetric monitoring system [id number] FDA Start: 11-30-2023 Functional Status Date Assessment Result Facility 06-19-2024 Porter - suicide severity rating scale screener - recent [C-SSRS] [facility] Work Phone: 03-25-2022 Functional Status ice on [place] 03-25-2022 Functional Status Maintained [place] 03-01-2022 Functional Status Sensory Deficits None A [facility] Mental Status Date Assessment Result Facility 03-25-2022 Mental Status Orientation Oriented x 4 [facility] 03-25-2022 Mental Status [facility] Clinical Notes 03-25-2022 to 06-19-2024 Discharge InstructionsDayesenia Guy DO - 06/19/2024 12:00 PM EDTDayesenia Guy, DO - 06/19/2024 12:00 PM EDTRoyal Guy, DO - 06/13/2024 10:15 AM EDT Note Date & Type Note Facility 06-19-2024 Hospital Discharge instructions Tiffany Malloy RN - 06/19/2024 12:06 PM EDT Patient Instructions after an endoscopy or colonoscopy The anesthetics, sedatives or narcotics which were given to you today will be acting in your body for the next 24 hours, so you might feel a little sleepy or groggy. This feeling should slowly wear off. Carefully read and follow the instructions. You received sedation today: - Do not drive or operate any machinery or power tools of any kind. - No alcoholic beverages today, not even beer or wine. - Do not make any important decisions or sign any legal documents. - No over the counter medications that contain alcohol or that may cause drowsiness. - Do not make any important decisions or sign any legal documents. While it is common to experience mild to moderate abdominal distention, gas, or belching after your procedure, if any of these symptoms occur following discharge from the GI Lab or within one week of having your procedure, call the [facility] to be advised whether a visit to your nearest Urgent Care or Emergency Department is indicated. Take this paper with you if you go. - If you develop an allergic reaction to the medications that were given during your procedure such as difficulty breathing, rash, hives, severe nausea, vomiting or lightheadedness.- If you experience chest pain, shortness of breath, severe abdominal pain, fevers and chills. -If you develop signs and symptoms of bleeding such as blood in your spit, if your stools turn black, tarry, or bloody - If you have not urinated within 8 hours following your procedure.- If your IV site becomes painful, red, inflamed, or looks infected. documented in this encounter [facility] Work Phone: 06-19-2024 Attending History and physical note H&P reviewed. The patient was examined and there are no changes to the H&P. Source Note - Royal Guy DO - 06/13/2024 10:15 AM EDT Subjective Patient ID: Jeremiah Rubio is a 48 y.o. male who presents for New Patient Visit (Pt presents today as a new patient with complaints of throat issues.. Pt states within the last two years, he's noticed voice changes, the urge to clear his throat constantly, a tightness (pressure) in sternum area, and an increased in phlegm production. Pt also has complaints of RLQ pain that occurs along with other illnesses. ). HPI 48-year-old male underwent GI workup for reflux dysphagia at [facility]. Esophageal manometry showed high lower esophageal sphincter pressure with incomplete relaxation incomplete swallowing. Upper endoscopy was unremarkable other than disorganized swallow and tight LES biopsies from antrum and small bowel were unremarkable. No esophageal biopsies were taken. Patient has been on omeprazole with little improvement continues complain of a feeling of discomfort in his upper pharynx with hoarseness and a feeling of incomplete swallowing feels worse after big meals continues to complain of coughing and needing to clear his throat following eating. Denies any family history of esophageal problems no change with caffeine or alcohol. Review of Systems Constitutional: Negative. HENT: Negative. Eyes: Negative. Respiratory: Negative. Cardiovascular: Negative. Gastrointestinal: Negative. Endocrine: Negative. Genitourinary: Negative. Musculoskeletal: Negative. Neurological: Negative. Hematological: Negative. Psychiatric/Behavioral: Negative. Objective Physical Exam Vitals and nursing note reviewed. Constitutional: Appearance: Normal appearance. HENT: Head: Normocephalic. Mouth/Throat: Mouth: Mucous membranes are moist. Pharynx: Oropharynx is clear. Eyes: Pupils: Pupils are equal, round, and reactive to light. Cardiovascular: Rate and Rhythm: Normal rate and regular rhythm. Pulmonary: Effort: Pulmonary effort is normal. Breath sounds: Normal breath sounds. Abdominal: General: Abdomen is flat. Bowel sounds are normal. Palpations: Abdomen is soft. Musculoskeletal: General: Normal range of motion. Cervical back: Normal range of motion and neck supple. Skin: General: Skin is warm and dry. Neurological: General: No focal deficit present. Mental Status: He is alert and oriented to person, place, and time. Psychiatric: Mood and Affect: Mood normal. Behavior: Behavior normal. Assessment/Plan Diagnoses and all orders for this visit: Dysphagia, unspecified type - Esophagogastroduodenoscopy (EGD) w Botox Injection; Future Gastroesophageal reflux disease with esophagitis, unspecified whether hemorrhage - Esophagogastroduodenoscopy (EGD) w Botox Injection; Future Discussed Botox injection and repeat endoscopy for biopsy patient agreeable. Indication for Botox and repeat endoscopy are to biopsy to exclude underlying EOE and treat possible high LES pressure. I did suggest to begin low-dose Cardizem 30 mg twice daily he is agreeable to same we will follow-up after endoscopy Royal Guy DO 06/13/24 5:13 PM [facility] Work Phone: 06-19-2024 History and physical note H&P reviewed. The patient was examined and there are no changes to the H&P. Source Note - Royal Guy DO - 06/13/2024 10:15 AM EDT Subjective Patient ID: Jeremiah Rubio is a 48 y.o. male who presents for New Patient Visit (Pt presents today as a new patient with complaints of throat issues.. Pt states within the last two years, he's noticed voice changes, the urge to clear his throat constantly, a tightness (pressure) in sternum area, and an increased in phlegm production. Pt also has complaints of RLQ pain that occurs along with other illnesses. ). HPI 48-year-old male underwent GI workup for reflux dysphagia at [facility]. Esophageal manometry showed high lower esophageal sphincter pressure with incomplete relaxation incomplete swallowing. Upper endoscopy was unremarkable other than disorganized swallow and tight LES biopsies from antrum and small bowel were unremarkable. No esophageal biopsies were taken. Patient has been on omeprazole with little improvement continues complain of a feeling of discomfort in his upper pharynx with hoarseness and a feeling of incomplete swallowing feels worse after big meals continues to complain of coughing and needing to clear his throat following eating. Denies any family history of esophageal problems no change with caffeine or alcohol. Review of Systems Constitutional: Negative. HENT: Negative. Eyes: Negative. Respiratory: Negative. Cardiovascular: Negative. Gastrointestinal: Negative. Endocrine: Negative. Genitourinary: Negative. Musculoskeletal: Negative. Neurological: Negative. Hematological: Negative. Psychiatric/Behavioral: Negative. Objective Physical Exam Vitals and nursing note reviewed. Constitutional: Appearance: Normal appearance. HENT: Head: Normocephalic. Mouth/Throat: Mouth: Mucous membranes are moist. Pharynx: Oropharynx is clear. Eyes: Pupils: Pupils are equal, round, and reactive to light. Cardiovascular: Rate and Rhythm: Normal rate and regular rhythm. Pulmonary: Effort: Pulmonary effort is normal. Breath sounds: Normal breath sounds. Abdominal: General: Abdomen is flat. Bowel sounds are normal. Palpations: Abdomen is soft. Musculoskeletal: General: Normal range of motion. Cervical back: Normal range of motion and neck supple. Skin: General: Skin is warm and dry. Neurological: General: No focal deficit present. Mental Status: He is alert and oriented to person, place, and time. Psychiatric: Mood and Affect: Mood normal. Behavior: Behavior normal. Assessment/Plan Diagnoses and all orders for this visit: Dysphagia, unspecified type - Esophagogastroduodenoscopy (EGD) w Botox Injection; Future Gastroesophageal reflux disease with esophagitis, unspecified whether hemorrhage - Esophagogastroduodenoscopy (EGD) w Botox Injection; Future Discussed Botox injection and repeat endoscopy for biopsy patient agreeable. Indication for Botox and repeat endoscopy are to biopsy to exclude underlying EOE and treat possible high LES pressure. I did suggest to begin low-dose Cardizem 30 mg twice daily he is agreeable to same we will follow-up after endoscopy Royal Guy DO 06/13/24 5:13 PM documented in this encounter [facility] Work Phone: 06-13-2024 History of Present illness Narrative Subjective Patient ID: Jeremiah Rubio is a 48 y.o. male who presents for New Patient Visit (Pt presents today as a new patient with complaints of throat issues.. Pt states within the last two years, he's noticed voice changes, the urge to clear his throat constantly, a tightness (pressure) in sternum area, and an increased in phlegm production. Pt also has complaints of RLQ pain that occurs along with other illnesses. ). HPI 48-year-old male underwent GI workup for reflux dysphagia at [facility]. Esophageal manometry showed high lower esophageal sphincter pressure with incomplete relaxation incomplete swallowing. Upper endoscopy was unremarkable other than disorganized swallow and tight LES biopsies from antrum and small bowel were unremarkable. No esophageal biopsies were taken. Patient has been on omeprazole with little improvement continues complain of a feeling of discomfort in his upper pharynx with hoarseness and a feeling of incomplete swallowing feels worse after big meals continues to complain of coughing and needing to clear his throat following eating. Denies any family history of esophageal problems no change with caffeine or alcohol. Review of Systems Constitutional: Negative. HENT: Negative. Eyes: Negative. Respiratory: Negative. Cardiovascular: Negative. Gastrointestinal: Negative. Endocrine: Negative. Genitourinary: Negative. Musculoskeletal: Negative. Neurological: Negative. Hematological: Negative. Psychiatric/Behavioral: Negative. Objective Physical Exam Vitals and nursing note reviewed. Constitutional: Appearance: Normal appearance. HENT: Head: Normocephalic. Mouth/Throat: Mouth: Mucous membranes are moist. Pharynx: Oropharynx is clear. Eyes: Pupils: Pupils are equal, round, and reactive to light. Cardiovascular: Rate and Rhythm: Normal rate and regular rhythm. Pulmonary: Effort: Pulmonary effort is normal. Breath sounds: Normal breath sounds. Abdominal: General: Abdomen is flat. Bowel sounds are normal. Palpations: Abdomen is soft. Musculoskeletal: General: Normal range of motion. Cervical back: Normal range of motion and neck supple. Skin: General: Skin is warm and dry. Neurological: General: No focal deficit present. Mental Status: He is alert and oriented to person, place, and time. Psychiatric: Mood and Affect: Mood normal. Behavior: Behavior normal. Assessment/Plan Diagnoses and all orders for this visit: Dysphagia, unspecified type - Esophagogastroduodenoscopy (EGD) w Botox Injection; Future Gastroesophageal reflux disease with esophagitis, unspecified whether hemorrhage - Esophagogastroduodenoscopy (EGD) w Botox Injection; Future Discussed Botox injection and repeat endoscopy for biopsy patient agreeable. Indication for Botox and repeat endoscopy are to biopsy to exclude underlying EOE and treat possible high LES pressure. I did suggest to begin low-dose Cardizem 30 mg twice daily he is agreeable to same we will follow-up after endoscopy Royal Guy DO 06/13/24 5:13 PM documented in this encounter [facility] Work Phone: 11-30-2023 Note [facility] Medical Records Department [address] [place] [address] History Physical Exam 11/30/23 0641 MR#: [id number] Acct: [id number] Name: JEREMIAH RUBIO Rep #: [id number] : 1975 48 From: Yovani Godfrey DO PCP: Dr. Thomas Padilla MD Status:[facility] Location: [place] [address] History and Physical Date of Admission: 11/30/23 JEREMIAH RUBIO, is a 48 M who presents to the office today for establishment with [facility] with concerns for silent acid reflux. He reports frequently needing to clear his throat of what feels like phlegm, but there's nothing to cough up, and it's caused a raspy voice change. He reports waking up with gastric contents in his mouth, also reports belching stomach contents in to his mouth a couple of times a week, heartburn after large meals late at night. States that he has stopped eating so close to bedtime and reduced the number of sparkling mccann ingested which have significantly reduced most symptoms except for the voice changes. He reports that supper is his largest meal because he has time to sit down and eat, he has small snacks throughout the day while working. Reports that he has on a few occasions vomited while working out if he had eaten right before; admits he tries to avoid eating before workouts now. He denies difficulty chewing and swallowing,nausea, early satiety, excessive belching, bloating, abdominal pain, pain associated with BM, blood in stool or toilet water. Reports daily complete BMs without straining. He denies fever, chills. ROS Const Constitutional: No anorexia, fatigue, fever(s), weight change or abnormal sleep pattern Eyes Eyes: No change in vision ENT ENT: Positive for post nasal drip; No abnormal hearing or difficulty swallowing Resp Respiratory: Positive for cough and excessive phlegm production Cardio Cardiology: No chest pain at rest or chest pain with exertion Gastro GI: Positive for heartburn and vomiting; No abdominal pain, belching, bloating, change in bowel habits, change in stool character, coffee ground emesis, constipation, cramping, diarrhea, difficulty swallowing, feeling full early, excessive flatus, incontinent of stools, Vomiting blood/hematemesis, Blood in stool, loose stools, Black,tarry stools, nausea/dyspepsia, pain with swallowing or other Genitourinary Male: No difficulty urinating Musc Musculoskeletal: No joint pain Skin Skin: No yellowing of the eye or itchy eyes Neuro Neurology: No abnormal hearing Psych Psychiatric: No abnormal sleep pattern, No anxiety and No depression Endo Endocrine: No cold intolerance, fatigue, heat intolerance or weight change Aller/Imm Allergy/Immunologic: No itchy eyes Daren/Lymp Hematologic/Lymphatic: No easy bleeding or easy bruising Exam Const General: cooperative, healthy appearing, comfortable and no acute distress Nutritional Appearance: average body habitus and well nourished Orientation: alert [facility] Head: normal to inspection Ears: hearing grossly normal bilaterally Nose: external nose normal Face and sinus: normal facial exam and face symmetric Eyes General: appearance normal, both eyes and all related structures Sclera: sclerae normal Neck Neck: normal visual inspection and full ROM Neck mass: No Chest Chest palpation inspection: normal inspection of the chest Resp Effort Inspection: normal respiratory effort, able to speak in complete sentences and symmetric chest movement GI Inspection: normal to inspection Skin General: no rashes or lesions noted Neuro General: patient alert, patient awake and patient oriented x3 Cranial Nerves: CN's II-XI intact bilaterally Cognition: normal cognition Speech: speech normal Gait: normal gait Motor: muscle tone normal throughout Extrem General: normal to inspection and full ROM Psych Appearance: well kempt Assessment and Plan Assessment and Plan (1) Acid reflux: Status: Acute Qualifiers: Esophagitis presence: esophagitis presence not specified Qualified Code(s): K21.9 - Gastro- esophageal reflux disease without esophagitis Plan: JEREMIAH RUBIO, is a 48 M who presents to the office today for establishment with [facility] with concerns for silent acid reflux. He reports frequently needing to clear his throat of what feels like phlegm, but there's nothing to cough up, and it's caused a raspy voice change. He reports waking up with gastric contents in his mouth, also reports belching stomach contents in to his mouth a couple of times a week, heartburn after large meals late at night. Differential diagnoses include: laryngopharyngeal reflux, post-nasal drip, esophageal dysmotility, gastroparesis, gastric outlet obstruction, NERD vs GERD. * EGD with Roper study capsule to measure pH changes * GET to evaluate for delayed gastric emptying * esophageal manometry to assess esophageal dysmotil (more content not included)... [facility] 03-25-2022 Evaluation + Plan note Extrac demetrius from: Title:Clinical Document Author:FARRAH CIFUENTES PM Date:03/25/22 [place] ADMISSION HISTORY AN D PHYSICIAL CHIEF COMPLAINT: HISTORY OF PRESENT ILLNESS: REVIEW OF SYSTEMS: ACTIVE PROBLEMS: (1) Seasonal allergies ([id number]) MEDICATIONS: Active Inpt Meds: cefOXitin Start: 03/25/22 6:42:00 EST, Dose = 1 gram(s), IV Piggyback, PREOP pharm, 18 hour(s), Stop: 03/26/22 0:41:00 EST, Rate: 200 mL/hr, Infuse over: 30 minute(s), 0, 03/25/22 6:42:00 EST Active PRN Meds: None One Time Meds: None Active IV Meds: Lactated Ringers Infusion 1,000 mL (LR 1,000 mL) Start: 03/25/22 6:42:00 EST, Rate: 125 mL/hr, 03/25/22 6:42:00 EST ALLERGIES: (1) No Known Medication Allergies FAMILY HISTORY: SOCIAL HISTORY: PHYSICAL EXAM: VITALS: [id number](kg) 03/25 06:4336.5--[id number]/10 64.5 24 Hr Tmax: 36.5 at 03/25 06:43 36 Hr Tmax: 36.5 at 03/25 06:43 Vital Signs are the last 5 in the past 48 hours. Weights display the last 5 within 7 days. Initial Wt: 03/25 64.5 kg 142 lb Current Wt: 03/25 64.5 kg 142 lb GENERAL: HEENT: CARDIOVASCULAR: RESPIRATORY: ABDOMEN: EXREMETIES: NEUROLOGICAL: PSYCHIATRIC: LABS: No 36hr Lab Data DIAGNOSTICS: IMPRESSION: PLAN: History and Physical Update I have examined the patient; reviewed the H&P and there are no changes to the H&P unless noted below. [facility] 02-10-2023 Hospital Discharge instructions Patient Education 03/25/2022 09:28:14 Metatarsal Osteotomy, Care After Metatarsal Osteotomy, Care After This sheet gives you information about how to care for yourself after your procedure. Your health care provider may also give you more specific instructions. If you have problems or questions, contact your health care provider. What can I expect after the procedure? After the procedure, it is common to have: Soreness. Pain. Stiffness. Swelling. Follow these instructions at home: Medicines Take faav-xte-riiaddd and prescription medicines only as told by your health care provider. Ask your health care provider if the medicine prescribed to you can cause constipation. You may need to take steps to prevent or treat constipation, such as: ?Drink enough fluid to keep your urine pale yellow. ?Take ltps-gnt-usnylji or prescription medicines. ?Eat foods that are high in fiber, such as beans, whole grains, and fresh fruits and vegetables. ?Limit foods that are high in fat and processed sugars, such as fried or sweet foods. If you have a splint or walking boot: Wear it as told by your health care provider. Remove it only as told by your health care provider. Loosen it if your toes tingle, become numb, or turn cold and blue. Keep it clean. If it is not waterproof: ?Do not let it get wet. ?Cover it with a watertight covering when you take a bath or shower. Bathing Do not take baths, swim, or use a hot tub until your health care provider approves. Ask your healthcare provider if you may take showers. You may only be allowed to take sponge baths. Keep the bandage (dressing) dry. Incision care Follow instructions from your health care provider about how to take care of your incision. Make sure you: ?Wash your hands with soap and water before you change your bandage (dressing). If soap and water are not available, use hand inspector canvas products. ?Change your dressing as told by your health care provider. ?Leave stitches (sutures), skin glue, or adhesive strips in place. These skin closures may need to stay in place for 2 weeks or longer. If adhesive strip edges start to loosen and curl up, you may trim the loose edges. Do not remove adhesive strips completely unless your health care provider tells you to do that. Check your incision area every day for signs of infection. Check for: ?More redness, swelling, or pain. ?Fluid or blood. ?Warmth. ?Pus or a bad smell. Managing pain, stiffness, and swelling If directed, put ice on the injured area. ?If you have a removable splint, remove it as told by your health care provider. ?Put ice in a plastic bag. ?Place a towel between your skin and the bag. ?Leave the ice on for 20 minutes, 2 3 times a day. Move your toes often to avoid stiffness and to lessen swelling. Raise (elevate) the injured area above the level of your heart while you are sitting or lying down. Driving Do not drive or use heavy machinery while taking prescription pain medicine. Do not drive for 24 hours if you were given a sedative during your procedure. Ask your health care provider when it is safe to drive if you have a dressing, splint, special shoe, or walking boot on your foot. General instructions Do not remove the bandage (dressing) around your foot until directed by your health care provider. If you were given a splint, special shoe, or walking boot, wear it as told by your health care provider. Do not use the injured limb to support your body weight until your health care provider says that you can. Use crutches or a walker as told by your health care provider. Return to your normal activities as told by your health care provider. Ask your health care provider what activities are safe for you. Do not use any products that contain nicotine or tobacco, such as cigarettes, e- cigarettes, and chewing tobacco. These can delay bone healing. If you need help quitting, ask your health care provider. Keep all follow-up visits as told by your health care provider. This is important. Contact a health care provider if: You have a fever. Your dressing becomes wet, loose, or stained with blood or discharge. You have pus or a bad smell coming from your incision or bandage. Your foot becomes red, swollen, or tender. You have pain or stiffness that does not get better or gets worse. You have tingling or numbness in your foot that does not get better or gets worse. Get help right away if: You develop a warm and tender swelling in your leg. You have chest pain. You have trouble breathing. Summary After the procedure, it is common to have soreness, pain, stiffness, and swelling. Follow instructions on caring for your incision, changing your dressing, and using weight support to protect your foot. Contact your health care provider if you have a fever, pus or a bad smell coming from your wound ordressing, or pain and stiffness do not get better. Get help right away if you develop a warm and tender swelling in your leg, have chest pain, or trouble breathing. This information is not intended to replace advice given to you by your health care provider. Make sure you discuss any questions you have with your health care provider. Document Released: 01/11/2016 Document Revised: 12/14/2018 Document Reviewed: 12/14/2018 [employer] Patient Education 2020 [employer]. Follow Up Care 02/22/2022 15:31:52 With:FARRAH CIFUENTES DPM, Surgery Address: [address] [place] [address], [place] [address] [facility] [place] [address]- When:03/31/2022 10:00:00 Comments:Follow-up as scheduled [facility] 02-10-2023 Summary of episode note Discharge Instructions Thank you for allowing [facility] to assist you with your healthcare needs. The following is importantdischarge information regarding your hospital visit. Your Care Team THOMAS PADILLA MD Your Diagnosis RUBY OSTEOTOMY RIGHT FOOT, ANALY OSTEOTOMY RIGHT GREAT TOE What to do next Instructions From Your Doctor SEE INSTRUCTION SHEET Follow Up Appointments Follow Up with FARRAH CIFUENTES DPM, Surgery When 03/31/2022 10:00 AM EST Why: Follow-up as scheduled Where: [address], [address] [facility] [place] [address]- The Following Activity and Diet Have Been Ordered for You Discharge Activity - Ordered -- Other, Follow the post-operative/post-procedure activity instructions provided by your physician's office., 03/25/22 9:25:00 EST No qualifying data available. The Following Equipment Has Been Ordered for You Discharge Home Equipment Discharge Wound Care - Ordered -- Follow the post-operative/post-procedure wound care instructions provided by your physician's office., 03/25/22 9:25:00 EST Allergies No Known Medication Allergies Medications Please ask your primary doctor or pharmacist before taking any other medication not listed, including over the counter drugs, herbal medications, vitamins and or supplements as they may interact withyour home medications. Please take this list to your next doctor s visit. Bring all medications you take, including over the counter medications, herbals and other supplements with you to your doctor s visit. Patients and families are reminded to discard old lists and to update any records with all medication providers or retail pharmacies. Education Materials Metatarsal Osteotomy, Care After This sheet gives you information about how to care for yourself after your procedure. Your health care provider may also give you more specific instructions. If you have problems or questions, contact your health care provider. What can I expect after the procedure? After the procedure, it is common to have: Soreness. Pain. Stiffness. Swelling. Follow these instructions at home: Medicines Take xwfi-cny-uydkvvc and prescription medicines only as told by your health care provider. Ask your health care provider if the medicine prescribed to you can cause constipation. You may need to take steps to prevent or treat constipation, such as: ? Drink enough fluid to keep your urine pale yellow. ? Take ckzn-vmu-pqqummd or prescription medicines. ? Eat foods that are high in fiber, such as beans, whole grains, and fresh fruits and vegetables. ? Limit foods that are high in fat and processed sugars, such as fried or sweet foods. If you have a splint or walking boot: Wear it as told by your health care provider. Remove it only as told by your health care provider. Loosen it if your toes tingle, become numb, or turn cold and blue. Keep it clean. If it is not waterproof: ? Do not let it get wet. ? Cover it with a watertight covering when you take a bath or shower. Bathing Do not take baths, swim, or use a hot tub until your health care provider approves. Ask your healthcare provider if you may take showers. You may only be allowed to take sponge baths. Keep the bandage (dressing) dry. Incision care Follow instructions from your health care provider about how to take care of your incision. Make sure you: ? Wash your hands with soap and water before you change your bandage (dressing). If soap and water are not available, use hand inspector canvas products. ? Change your dressing as told by your health care provider. ? Leave stitches (sutures), skin glue, or adhesive strips in place. These skin closures may need to stay in place for 2 weeks or longer. If adhesive strip edges start to loosen and curl up, you may trim the loose edges. Do not remove adhesive strips completely unless your health care provider tells you to do that. Check your incision area every day for signs of infection. Check for: ? More redness, swelling, or pain. ? Fluid or blood. ? Warmth. ? Pus or a bad smell. Managing pain, stiffness, and swelling If directed, put ice on the injured area. ? If you have a removable splint, remove it as told by your health care provider. ? Put ice in a plastic bag. ? Place a towel between your skin and the bag. ? Leave the ice on for 20 minutes, 2 3 times a day. Move your toes often to avoid stiffness and to lessen swelling. Raise (elevate) the injured area above the level of your heart while you are sitting or lying down. Driving Do not drive or use heavy machinery while taking prescription pain medicine. Do not drive for 24 hours if you were given a sedative during your procedure. Ask your health care provider when it is safe to drive if you have a dressing, splint, special shoe, or walking boot on your foot. General instructions Do not remove the bandage (dressing) around your foot until directed by your health care provider. If you were given a splint, special shoe, or walking boot, wear it as told by your health care provider. Do not use the injured limb to support your body weight until your health care provider says that you can. Use crutches or a walker as told by your health care provider. Return to your normal activities as told by your health care provider. Ask your health care provider what activities are safe for you. Do not use any products that contain nicotine or tobacco, such as cigarettes, e- cigarettes, and chewing tobacco. These can delay bone healing. If you need help quitting, ask your health care provider. Keep all follow-up visits as told by your health care provider. This is important. Contact a health care provider if: You have a fever. Your dressing becomes wet, loose, or stained with blood or discharge. You have pus or a bad smell coming from your incision or bandage. Your foot becomes red, swollen, or tender. You have pain or stiffness that does not get better or gets worse. You have tingling or numbness in your foot that does not get better or gets worse. Get help right away if: You develop a warm and tender swelling in your leg. You have chest pain. You have trouble breathing. Summary After the procedure, it is common to have soreness, pain, stiffness, and swelling. Follow instructions on caring for your incision, changing your dressing, and using weight support to protect your foot. Contact your health care provider if you have a fever, pus or a bad smell coming from your wound ordressing, or pain and stiffness do not get better. Get help right away if you develop a warm and tender swelling in your leg, have chest pain, or trouble breathing. This information is not intended to replace advice given to you by your health care provider. Make sure you discuss any questions you have with your health care provider. Document Released: 01/11/2016 Document Revised: 12/14/2018 Document Reviewed: 12/14/2018 [employer] Patient Education 2020 [employer] Additional Information VACCINATE! IT SAVES LIVES! Members of the community who have not yet received the COVID-19 vaccine and would like to receive it can visit one of [facility] vaccine clinics. There are many vaccine clinic locations within the [facility]. For locations and available times, please visit [email or web address] It is important to note that some COVID mobile vaccine clinics are held outdoors and may be canceled in rainy or stormy conditions. To learn more about pediatric vaccinations (ages 5-11), we invite you to visit the [facility] webpage. [email or web address] [email or web address] learn more about the COVID-19 vaccine, we invite you to visit the [facility] website for a list of frequently asked questions. [email or web address] [facility] Patient Portal Access Instructions: Stay connected with your healthcare team and access your personal medical information anytime with the [facility] Patient Portal.If you would like a full copy of your medical records, please contact the [facility] Medical Records Department, Monday through Monday between 8a.m. and 4:30p.m. Please follow the directions below to access the portal: 1.Access the email account you provided upon registration to the [facility].2.Look for an invitation email from [facility].3.Open the email and access the invitation link: Accept Invitation to [facility]4.Fill in the required jacobson to create your account. Sign into www.[facility] with your username and password that you created in the above steps to stay up to date. You can then view a summary of results, a summary of your visits, and the ability to download your summaries to your computer or send the information securely to a physician. Remember that your healthcare information is confidential, so carefully consider who you will allow to register on the [facility] Patient Portal for access to your information. You can also access the [facility] Patient Portal on the [employer]. Simply click on Health Records under [employer] and then click on the [facility] logo. HOW TO SAFELY DISPOSE OF PRESCRIPTION MEDICATIONS Please use one of the following methods to safely dispose of your unused medications. 1.Use a drug disposal kit: the drug disposal pouch allows you to safely discard your old and unuseddrugs. Ask your nurse to give you one when you are discharged.2.Visit a local take-back location: Many local pharmacies and police departments have programs that collect old and unwanted prescriptiondrugs. Call your local pharmacy or go to http://bit.[employer]/6E8Ok5u to find one close to you.3.Make use of household items: Use cat litter or old coffee grounds to dispose medications if other options arenot available. Mix your drugs with these household products, seal them in an airtight container andthrow it into the garbage. Call [facility]: [phone] to be sure your drugs can be disposed of in this way. Some medicines may require a different approach.4.Never flush your medications down the toilet. IF YOU HAVE BEEN PRESCRIBED AN OPIOID FOR PAIN If you have been prescribed an opioid (such as hydrocodone, oxycodone or morphine), it is critical to understand the possible side effects and risks of opioid pain medications. Even when taken as directed, opioids can have several side effects including: Tolerance, meaning you might need to take more of a medication for the same pain relief. Nausea, vomiting and/or constipation. Sleepiness, dizziness, dry mouth, confusion, depression or itching. Physical dependence, meaning you have withdrawal symptoms when a medication is stopped, can develop within a few days. KNOW YOUR RESPONSIBILITIES It is important to know exactly how much and how often to take the opioid pain medications you are prescribed. Never take opioids in higher amounts or more often than prescribed. Do not combine opioids with alcohol or other drugs that cause drowsiness, such as benzodiazepines, also known as benzos, including diazepam and alprazolam, muscle relaxants or sleep aids. Never sell or share prescription opioids. This is illegal. Store opioids in a secure place and out of reach of others (including children, family, friends and visitors). The last page of this document has been signed and retained as a CHART COPY. Signatures Patient Education Materials Metatarsal Osteotomy, Care After Medication Leaflets My discharge plan and instructions have been reviewed and explained to me and I,JEREMIAH RUBIO understand my current condition and have read and understand these discharge instructions. I have received a written copy of the plan/instructions. If I have questions, I am aware that I should contact my doctor. 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 Family's history: negative. Health Status Allergies: Allergic Reactions (Selected) No Known Medication Allergies, Allergies (1) ActiveReaction No Known Medication AllergiesNone Documented Current medications: (Selected) Inpatient Medications Ordered LR 1,000 mL: 125 mL/hr, Intravenous cefOXitin: 1 gram(s), 200 mL/hr, IV Piggyback, PREOP pharm, Medications (2) Active Scheduled: (1) ceFOXitin 1 gram(s), IV Piggyback, PREOP pharm Continuous: (1) Lactated Ringers 1,000 mL 1,000 mL, Intravenous, 125 mL/hr PRN: (0) Problem list: Active Problems (1) Seasonal allergies Histories Past Medical History: No active or resolved past medical history items have been selected or recorded. Family History: Cancer Grandparent Alzheimer's disease Grandparent Procedure history: Shoulder ([id number]). Comments: 03/01/2022 8:07 Nakia Connors RN right tendon repair Bunionectomy ([id number]). Comments: 03/01/2022 8:07 Nakia Connors RN left Fusion ([id number]). Comments: 03/01/2022 8:08 Nakia Connors RN acdf 3-4 Arthroscopy of knee ([id number]). Comments: 03/01/2022 8:07 Nakia Connors RN x2, right x1 left Social History Social & Psychosocial Habits Alcohol 03/01/2022 Use: Never Substance Abuse 03/01/2022 Use: Never Tobacco 03/01/2022 Tobacco Use: Never (less than 100 in l Nutrition/Health 03/25/2022 Type of diet: Regular Appetite Excellent Eating Difficulties None . Physical Examination Vital Signs 03/25/2022 6:43 EST Temperature Temporal Artery 36.5 DegC Apical Heart Rate 66 bpm Respiratory Rate 15 br/min Systolic Blood Pressure Non-Invasive 111 mmHg Diastolic Blood Pressure Non-Invasive 68 mmHg Vital Signs(last 24 hrs) Last Charted Resp Rate 15 br/min (MAR 25 06:43) [id number] mmHg (MAR 25:43) DBP68 mmHg (MAR 25:43) Measurements from flowsheet : Measurements 03/25/2022 6:43 EST Height 167.6 cm Height in inches 66 inch(es) Admission Weight 64.5 kg Weight Lbs 141.9 lb Egan Body Weight 63.76 kg Admission Body Mass Index 22.96 m2 Pain assessment: Pain Assessment 03/25/2022 6:43 EST Primary Pain Intensity 0 Pain Scale Type 0-10 Pain scale . General: Alert and oriented. Airway: Normal temporomandibular joint mobility. Mallampati classification: II (soft palate, fauces, uvula visible). Dentition Evaluation: Denies loose/chipped teeth. Respiratory: Lungs are clear to auscultation, Respirations are non-labored. Cardiovascular: Normal rate, Regular rhythm. Neurologic: Alert, Oriented. Review / Management Results review: No qualifying data available , Lab results 03/25/2022 6:49 EST SN - Preop - CTm Pt in SDS Room 03/25/2022 6:39 SN - Preop - CTm Pt Ready for OR/Proced 03/25/2022 6:49 03/25/2022 6:48 EST Lactated Ringers Injection Begin Bag 1,000 mL mL 03/25/2022 6:43 EST Height 167.6 cm Height in inches 66 inch(es) Admission Weight 64.5 kg Weight Lbs 141.9 lb Egan Body Weight 63.76 kg Admission Body Mass Index 22.96 m2 Temperature Temporal Artery 36.5 DegC Apical Heart Rate 66 bpm Respiratory Rate 15 br/min Systolic Blood Pressure Non-Invasive 111 mmHg Diastolic Blood Pressure Non-Invasive 68 mmHg Primary Pain Intensity 0 Pain Scale Type 0-10 Pain scale Monitor Alarms On and Limits Checked Heart Rhythm Regular Oxygen Therapy Room air Oxygen Saturation 96 % Abdomen Description Non-distended Abdomen Palpation Non-Tender Bowel Sounds All Quadrants Present Urinary Elimination Voiding, no difficulties Skin Temperature Warm Skin Description Normal for ethnicity Skin Integrity Intact Mucous Membrane Color Mcmillin IV Present Present Hand Left 03/25/2022 20 gauge Peripheral IV Activity: Insert new site Peripheral IV Dressing Condition: Clean, Dry, Intact Peripheral IV Dressing Activity: Applied Peripheral IV Line Status/Patency: Flushes easily Peripheral IV Site Condition: No complications Peripheral IV Number of Attempts: 1 Extremity Movement Equal Characteristics of Speech Clear Level of Consciousness Alert Strength All Extremities Strong Tone All Extremities Normal Sensation All Extremities Intact Affect/Behavior Appropriate, Calm, Cooperative Orientation Oriented x 4 Allergies Yes Consent Form Signed Yes Patient Dressed In Hospital gown CHG Skin Prep Completed for Eligible Surgery History & Physical Update On Chart Yes History & Physical On Chart Yes Obstructive Sleep Apnea Assess Completed Yes Belongings At Bedside Cell phone, Pants, Shoes, Socks, Wallet Activity Status ADL Awake, Resting SCD On/Re-applied left knee high NPO Status Maintained Allergy Band on and Verified Yes Blood Band on and Verified Yes Patient ID Band on and Verified Yes Implants Verified Yes Pacemaker/AICD Verified Yes Anesthesia Consent Signed Yes Blood Consent Signed Yes Last Fluid Intake 03/24/2022 23:00 Last Food Intake 03/24/2022 23:00 Last Void 03/25/2022 6:46 03/25/2022 6:42 EST Status N/A Infectious Disease Symptoms Patient states no symptoms Safety Brochure Information Reviewed Yes [facility] Welcome Video Viewed No Teaching Evaluation Verbalizes/Nonverbally indicates understanding N/A Admission Note-Nursing Same Day Patient History (Modified) . Assessment and Plan [place] [employer] Anesthesiologists (ASA) physical status classification: Class I. Anesthetic Preoperative Plan Anesthetic technique: MAC. Postoperative pain management: Per surgeon. Risks discussed: nausea, vomiting, hypotension, allergic reaction, serious complications. Informed consent: signed by patient. Digitally Signed by NAMRATA TREJO on 03/25/2022 07:26 AM [facility]02-10-2023 Note [place] ADMISSION HISTORY AND PHYSICIAL CHIEF COMPLAINT: HISTORY OF PRESENT ILLNESS: REVIEW OF SYSTEMS: ACTIVE PROBLEMS: (1) Seasonal allergies ([id number]) MEDICATIONS: Active Inpt Meds: cefOXitin Start: 03/25/22 6:42:00 EST, Dose = 1 gram(s), IV Piggyback, PREOP pharm, 18 hour(s), Stop: 03/26/22 0:41:00 EST, Rate: 200 mL/hr, Infuse over: 30 minute(s), 0, 03/25/22 6:42:00 EST Active PRN Meds: None One Time Meds: None Active IV Meds: Lactated Ringers Infusion 1,000 mL (LR 1,000 mL) Start: 03/25/22 6:42:00 EST, Rate: 125 mL/hr, 03/25/22 6:42:00 EST ALLERGIES: (1) No Known Medication Allergies FAMILY HISTORY: SOCIAL HISTORY: PHYSICAL EXAM: VITALS: GatfvwDmcxJXYhxyvHXCzY0QSV3KbcrWn(kg) 03/25 06:4336.5--[id number]/10 64.5 24 Hr Tmax: 36.5 at 03/25 06:43 36 Hr Tmax: 36.5 at 03/25 06:43 Vital Signs are the last 5 in the past 48 hours. Weights display the last 5 within 7 days. Initial Wt: 03/25 64.5 kg 142 lb Current Wt: 03/25 64.5 kg 142 lb GENERAL: HEENT: CARDIOVASCULAR: RESPIRATORY: ABDOMEN: EXREMETIES: NEUROLOGICAL: PSYCHIATRIC: LABS: No 36hr Lab Data DIAGNOSTICS: IMPRESSION: PLAN: History and Physical Update I have examined the patient; reviewed the H&P and there are no changes to the H&P unless noted below. Digitally Signed by FARRAH CIFUENTES DPM on 03/25/2022 07:26 AM [facility] Future Appointments [facility] Evaluation noteNo assessment information available [facility] Work Phone: Evaluation note* Diagnosis Dysphagia, unspecified type Gastroesophageal reflux disease with esophagitis, unspecified whether hemorrhage documented in this encounter [facility] Work Phone: Evaluation note* Diagnosis Dysphagia, unspecified type Gastroesophageal reflux disease with esophagitis, unspecified whether hemorrhage documented in this encounter [facility] Work Phone: Hospital course Narrative No data available for this section [facility] Hospital Discharge instructions No data available for this section [facility] Progress note No data available for this section [facility] Reason for referral (narrative)No reason for referral information availableWUniversity [facility] Work Phone: Reason for visit Narrative* Endoscopy (Routine) - Authorized Specialty Diagnoses / Procedures Referred By Contact Referred To Contact Gastroenterology Diagnoses Dysphagia, unspecified type Gastroesophageal reflux disease with esophagitis, unspecified whether hemorrhage Procedures Esophagogastroduodenoscopy (EGD) w Botox Injection NV ESOPHAGOGASTRODUODENOSCOPY TRANSORAL DIAGNOSTIC NV EGD TRANSORAL BIOPSY SINGLE/MULTIPLE Royal Guy, DO [address] [facility], [address] [place] [address] Phone: tel:[phone] fax:[phone] Referral ID Status Reason Start Date Expiration Date V isits Requested Visits Authorized [id number] Authorized 06/13/2024 06/13/2025 1 1 [facility] Work Phone: Summary Purpose Family History No Family History Records FoundNo Family History Records FoundNo Family History Records FoundNo Family History Records Found Advance Directives No Advanced Directives Records FoundNo Advanced Directives Records FoundNo Advanced Directives Records FoundNo Advanced Directives Records Found Chief Complaint and Reason for Visit Chief Complaint EORDER Additional Source Comments Care Team (unrecognized sect ion and content) Care Team Personnel Name: THOMAS PADILLA MD Member Role: Primary Care Physician Address: Address: [address] [place] [address] Care Team Related Persons Name: MARLENI LOPEZ Care Team Personnel Name: THOMAS PADILLA MD Member Role: Primary Care Physician Address: Address: [address] [place] [address] Care Team Related Persons Name: MARLENI LOPEZ (unrecognized sect ion and content) No Status Records FoundNo Status Records FoundNo Status Records FoundNo Status Records Found INFORMATION SOURCE (unrecogn ized section and content) DATE CREATED AUTHOR 04/08/2022 [facility] ([place]) DATE CREATED AUTHOR AUTHOR'S ORGANIZ ATION 06/28/2024 [facility] DATE CREATED AUTHOR AUTHOR'S ORGANIZ ATION 07/10/2024 [facility] DATE CREATED AUTHOR AUTHOR'S ORGANIZ ATION 07/30/2024 [facility] Care Teams (unrecognized sec tion and content) Team Status: Active Member Role Status Dates Dr. Thomas Padilla MD Primary Care Provider Active Team Status: Inactive Member Role Status Dates Dr. Thomas Padilla MD Primary Care Pr ovider, Attending Provider, Referring Provider Active Team Status: Inactive Member Role Status Dates Dr. Thomas Padilla MD Primary Care Provider Active Start: March 18, 2024 End: March 18, 2024 Dr. Thomas Padilla MD Attending Provider Active Start: March 18, 2024 End: March 18, 2024 Dr. Thomas Padilla MD Referring Provider Active Start: March 18, 2024 End: March 18, 2024 Team Status: Inactive Member Role Status Dates Dr. Thomas Paidlla MD Primary Care Provider Active Start: April 26, 2024 End: April 26, 2024 Dr. Thomas Padilla MD Attending Provider Active Start: April 26, 2024 End: April 26, 2024 Dr. Thomas Padilla MD Referring Provider Active Start: April 26, 2024 End: April 26, 2024 Team Status: Inactive Member Role Status Dates Dr. Thomas Padilla MD Primary Care Provider Active Start: May 21, 2024 End: May 21, 2024 Dr. Thomas Padilla MD Attending Provider Active Start: May 21, 2024 End: May 21, 2024 Dr. Thomas Padilla MD Referring Provider Active Start: May 21, 2024 End: May 21, 2024 [employer] Relationship Specialty Start Date End Date Thomas Padilla MD [address] [address] [place] [address] PCP - General Family Medicine 04/29/24 [employer] Relationship Specialty Start Date End Date Thomas Padilla MD [address] [facility] [address] [place] [address] PCP - General Family Medicine 04/29/24 Goals (unrecognized section and content) Goals may be documented in a n alternate section Reason for Visit (unrecogniz ed section and content) Reason Comments New Patient Visit Pt presents today as a new patient with complaints of throat issues.. Pt states within the last two years, he's noticed voice changes, the urge to clear his throat constantly, a tightness (pressure) in sternum area, and an increased in phlegm production. Pt also has complaints of RLQ pain that occurs along with other illnesses. FOR RECORDS PERTAINING TO PATIENTS WHO ARE OR HAVE BEEN ENROLLED IN A CHEMICAL DEPENDENCY/SUBSTANCEABUSE PROGRAM, SOME INFORMATION MAY BE OMITTED. This clinical summary was aggregated from multiple sources. Caution should be exercised in using it in the provision of clinical care. This summary normalizes information from multiple sources, and as a consequence, information in this document may materially change the coding, format and clinical context of patient data. In addition, data may be omitted in some cases. CLINICAL DECISIONS SHOULD BE BASED ON THE PRIMARY CLINICAL RECORDS. [employer] provides no warranty or guarantee of the accuracy or completeness of information in this document.
== END | disposition home or self-care (01) ==
PROVIDERS: PCP Family Medicine; Referring Provider Orthopaedic Surgery Sports Medicine; Visit Provider Orthopaedic Surgery Sports Medicine
DX: S86.112A Strain of other muscle(s) and tendon(s) of posterior muscle group at lower leg level, left leg, initial encounter (principal); M25.562 Pain in left knee
CPT/HCPCS: 73718; 73721

== ENCOUNTER 2024-10-01 07:00 | Outpatient (RCR) | payer OTHER, SELFPAY ==
--- NOTE | 2024-08-09 16:43 | HP.PTEVAL_ITS ---
Patient's Visit Information Visit Information Visit Information: TRINI RUBIO is a 48 year old M referred to Physical Therapy by Dr. Teddy Lauren MD with a diagnosis of STRAIN MUSCLE TENDON OF POSTERIOR MUSCLE ,LATERAL MENSICSUS TEAR. Date of Evaluation: 08/09/24 Physical Therapist: Freeman Alicia, PT, Cert MDT, OCS Visit Plan Frequency: 2x /Week Duration: 4 Weeks Plan: PT INTERVTIONS: -MANUAL THERAPY STM/HAWK/TOOL/FOAM ROLLING -ECCENTRIC STRENGTHENING CALF -LE STRENGTHENING FOR RUNNING -RPWT 1 XWEEK TO CALF END OF SESSION FOR 4-6 SESSIONS -RUNNING PROGRAM LILLIAN Subjective Subjective: This 48 y/o male presents to physical therapy with calf strain and and lateral meniscus tear. Patient has had chronic calf strain ~ 20 years. Patient 2 months developed another calf strain . Patient had really knee pain . But when seen DR Lauren MRi showed knee horizontal tear in the posterior horn of the lateral meniscus which extends to the tibial surface, near the root,There is moderate distal quadriceps and proximal patellar tendinopathy without full- thickness tear , calf here is superficial edema in the central portion of the gastrocnemius, medial and lateral heads, measuring 1.1 x 3[address] recommend surgery on knee .Patient has treatment ,resting ,massage..Patient has had gait assessment. Patient runs 10 miles uses vibriam shoes. Patient has had h/o dislocation with lateral release x2 right meniscectomy ,left arthroscopy. Patient aggravating factors kneeling ,running .. Alleviating factors rest, Location of pain mid calf,typival bruising. Patient denies parestehesia /tingling. Goal to running . 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[employer] SOCAIL: HOBBIES: running Objective Objective: POSTURE: WFL PALAPTION: tender lateral calf and proximal, ,Soleus tender ,unremarkable joint line OBSERVATION: unremarkable GAIT: reciprocal pattern NEURO: denies paresthesia/tingling AROM: 0-135 degrees supine flexion MMT: left quads/hams 5/5 ,hip flexion 4/5 ,hip abduction 4/5 ,ankle dorsiflexion ,peroneus/posterior tibialis,5/5 ,G-S 4/5 G-S: min tight Special Tests L Knee Alex - Meniscus: Negative L Knee Marcell - ACL: Negative L Knee Anterior Drawer - ACL: Negative L Knee Posterior Drawer - PCL: Negative L Knee Valgus - MCL: Negative L Knee Varus - LCL: Negative L Knee Patellar Apprehension - PFS: Negative L Knee Patellar Grind - PFS: Negative Goals Goal 1:: Patient to be I with HEP Goal Time Frame: 4-6 Weeks Goal 2:: Patient to demonstrate 90% improvement with less episode of calf symptoms when resuming running Goal Time Frame: 4-6 Weeks Goal 3:: Patient to improve LFES score by 5 points to improve QOL Goal Time Frame: 4-6 Weeks Goal 4:: Patient to have min to no tenderness to calf to resume running program Goal Time Frame: 4-6 Weeks Goal 5:: Educate patient on progression of running program guidelines Goal Time Frame: 4-6 Weeks Rehabilitation Potential Physical Therapy Diagnosis: This patient has calf strain with left which has been chronic for 20 years with pain with palpation lateral aspect and pain mainly with running as far as knee no pain with testing and good strength, Patient will benefit from skilled PT to address current impairments Rehabilitation Potential: Good Anticipated Interventions Patient/Client Instruction: Educate patient on: Condition and Plan of Care For the Purpose of:: To decrease pain, To increase ROM, To improve muscle performance and motor function, To improve ability to perform ADL's, To increase tolerance to activity/condition/position, To improve performance and independence with ADL's, To improve ability of physical actions for home/community/work/leisure, To improve health of tissue, To decrease soft tissue restriction and To increase flexibility/ROM Therapeutic Exercise to Include: Strength training, Power training, Endurance tr aining and Active ROM For the Purpose of:: To decrease pain, To increase ROM, To improve nutrient delivery to tissue, To increase oxygenation perfusion, To improve health of ti ssue, To decrease soft tissue restriction and To increase flexibility/ROM Manual Therapy Techniques to Include: Soft tissue mobilization Comment: G-S ,CALF For the Purpose of:: To decrease pain, To increase ROM, To improve nutrient delivery to tissue, To increase oxygenation perfusion, To improve muscle performance and motor function, To increase tolerance to activity/condition/position, To improve ability of physical actions for home/community/work/leisure, To improve health of tissue, To decrease soft tissue restriction and To increase flexibility/ROM TENS: Yes IF ES: Yes Cryotherapy (ice pack, ice massage): Yes Thermo therapy (hot pack): Yes Ultrasound (thermal/non thermal): Yes For the Purpose of:: To decrease pain Text: Thank you for the opportunity to evaluate your patient. For Medicare and Medicare HMO plans, please review the plan of care and approve it. It will need to be FAXED BACK to us at [phone] for Medicare purposes. For Medicare only, by signing this I certify the plan of care. Please let me know if there are questions or concerns regarding this plan of care. Physician Signatur e: Date:
--- NOTE | 2024-09-20 07:39 | HP.PTREVAL ---
Re-Evaluation Intro: Dr. Teddy Lauren MD, It has been my pleasure to treat TRINI RUBIO over the last 8 visits for STRAIN MUSCLE TENDON OF POSTERIOR MUSCLE ,LATERAL MENSICSUS TEAR. Please see the progress note below for an update on the physical therapy plan of care! Subjective Subjective: R calf hurt and is limiting now but L is nearly 100% better. No running since last week on Monday and probably ran to soon. Objective Objective/Function: walks normal today adn good ROM, some bruising L lateral calf still. Good progress although L started hurting and appropriate for continued POC 2-4 more weeks toward unmet goals and new goal , good prognosis with compliance. Plan Plan Plan: continue x 2-4 weeks for shockwave and ensure progression of running. Pt can do strengthening himself at home. Manual therapy as needed IASTM. Goals Goals Goal 1:: Patient to be I with HEP Goal Time Frame: 4-6 Weeks Goal Progress: Goal Met Goal 2:: Patient to demonstrate 90% improvement with less episode of calf symptoms when resuming running Goal Time Frame: 4-6 Weeks Goal Progress: Goal Met Goal 3:: Patient to improve LFES score by 5 points to improve QOL Goal Time Frame: 4-6 Weeks Goal Progress: ? Goal 4:: Patient to have min to no tenderness to calf to resume running program Goal Time Frame: 4-6 Weeks Goal Progress: L meet Goal 5:: Educate patient on progression of running program guidelines Goal Time Frame: 4-6 Weeks Goal Progress: Progressing Goal 6:: R calf back to normal for running. Goal Time Frame: 2-4 Weeks Goal Progress: NEW GOAL Anticipated Interventions Anticipated Interventions Patient/Client Instruction: Educate patient on: Condition and Plan of Care For the Purpose of:: To decrease pain, To increase ROM, To improve muscle performance and motor function, To improve ability to perform ADL's, To increase tolerance to activity/condition/position, To improve performance and independence with ADL's, To improve ability of physical actions for home/community/work/leisure, To improve health of tissue, To decrease soft tissue restriction and To increase flexibility/ROM Therapeutic Exercise to Include: Strength training, Power training, Endurance training and Active ROM For the Purpose of:: To decrease pain, To increase ROM, To improve nutrient delivery to tissue, To increase oxygenation perfusion, To improve health of tissue, To decrease soft tissue restriction and To increase flexibility/ROM Manual Therapy Techniques to Include: Soft tissue mobilization Comment: G-S ,CALF For the Purpose of:: To decrease pain, To increase ROM, To improve nutrient delivery to tissue, To increase oxygenation perfusion, To improve muscle performance and motor function, To increase tolerance to activity/condition/position, To improve ability of physical actions for home/community/work/leisure, To improve health of tissue, To decrease soft tissue restriction and To increase flexibility/ROM TENS: Yes IF ES: Yes Cryotherapy (ice pack, ice massage): Yes Thermo therapy (hot pack): Yes Ultrasound (thermal/non thermal): Yes For the Purpose of:: To decrease pain Re-Evaluation Ending Re-evaluation ending: Please do not hesitate to contact me at [phone] by phone or if you have questions or concerns regarding this new plan of care! Sincerely, Rupesh Angel, DPT, OCS, CSCS
== END 2024-10-01 19:00 | disposition home or self-care (01) ==
LOC: PT 07:00
PROVIDERS: PCP Family Medicine; Referring Provider Orthopaedic Surgery Sports Medicine; Visit Provider Orthopaedic Surgery Sports Medicine
DX: S86.112D Strain of other muscle(s) and tendon(s) of posterior muscle group at lower leg level, left leg, subsequent encounter (principal); S83.282D Other tear of lateral meniscus, current injury, left knee, subsequent encounter
CPT/HCPCS: 97110; 97140; 97162; 97164; 97530